=== PATIENT | male | born 1985 | race Caucasian/White ===

== ENCOUNTER 2017-10-06 13:51 | Inpatient (IN) ==
[2017-10-06 14:21] LABS: Basophils % 0.3 %; Eosinophils % 0.6 %; Hematocrit 38.7 % (37.5-50.1); Hemoglobin 12.5 g/dL (12.9-16.9); Immature Granulocytes % 0.1 % (0-4); Lymphocytes # 1.8 K/mcL (0.6-4.6); Lymphocytes % 25.8 %; Mean Corpuscular HGB Conc 32.3 g/dL (31.6-35.5); Mean Corpuscular Hemoglobin 27.1 pg (28.0-33.3); Mean Corpuscular Volume 83.9 fL (83.0-100.0); Mean Platelet Volume 11.4 fL (9.4-12.4); Monocytes # 0.9 K/mcL (0.0-1.3); Monocytes % 13.1 %; Neutrophils # 4.1 K/mcL (1.6-8.9); Platelet Count 513 K/mcL (140-400); Red Blood Count 4.61 M/mcL (4.19-5.50); Red Cell Distribution Width 14.3 % (11.5-14.5); Segmented Neutrophils % 60.1 %
--- NOTE | 2017-10-06 14:26 | Emergency Department Note ---
Disposition Clinical Impression: Acute renal failure, Hypokalemia, Hyponatremia, Metabolic alkalosis, Volume depletion Disposition: Admitted As Inpatient Condition: Critical Time of Disposition: 18:09 Recheck wound or abnormal lab - General Chief Complaint: ED Recheck/Abnormal Lab/Rx Stated Complaint: abnormal labs: Creat Time Seen by Provider: 10/06/17 14:15 Source: patient, family Limitations: no limitations Nursing Notes Reviewed: Yes Vital Signs Reviewed: Yes - History of Present Illness HPI Narrative: Mr. Benitez, 31-year-old male, presents from [facility] for evaluation of abnormal lab value-creatinine on routine labs today was 8.7 compared to 3 days prior of 1.7. PMH: Hydrocephalus, mild intellectual disabilities, dysphasia, major depressive disorder, intermittent explosive disorder ROS: Positive: Patient is keating positive. - Related Data Home Medications Medication Instructions Recorded Confirmed Atenolol [Tenormin] 25 mg PO DAILY 10/06/17 10/06/17 Bismuth Subsalicylate 524 mg PO Q8H PRN 10/06/17 10/06/17 [PEPTO-BISMOL (262mg/15mL) Susp] Brivaracetam [Briviact] 100 mg PO BID 10/06/17 10/06/17 Dextrose 10 % in Water [Dextrose 2,400 ml IV AD 10/06/17 10/06/17 10%-Water IV Solution] Docusate [Colace] 100 mg PO BID PRN 10/06/17 10/06/17 Esomeprazole Magnesium [Nexium] 40 mg PO DAILY PRN 10/06/17 10/06/17 Gemfibrozil [Lopid] 600 mg PO BIDWM 10/06/17 10/06/17 GuaiFENesin/Dextromethorphan 10 ml PO Q6H PRN 10/06/17 10/06/17 [Tussin Dm Syrup] Loperamide HCl [Anti-Diarrheal] 2 mg PO PER PKG DI PRN MDD 8 mg 10/06/17 Mirtazapine [Remeron] 45 mg PO 1800,2100 10/06/17 10/06/17 Mvi, Adult No.4, Vit K, 1 of 2 5 ml IV AD 10/06/17 10/06/17 [Infuvite Adult Vial 1] Mvi, Adult No.4, Vit K, 2 of 2 5 ml IV AD 10/06/17 10/06/17 [Infuvite Adult Vial 2] Nystatin Cream [Mycostatin Cream] 1 appl TP BID 10/06/17 10/06/17 Oxycodone HCl 5 mg PO Q6H PRN 10/06/17 10/06/17 Quetiapine Fumarate [SEROquel] 100 mg PO QAM 10/06/17 10/06/17 Quetiapine Fumarate [Seroquel] 50 mg PO 1200,2100 10/06/17 10/06/17 Ranitidine HCl [Zantac] 150 mg PO BID 10/06/17 10/06/17 Tpn 2,400 ml IV DAILY 10/06/17 10/06/17 lamoTRIgine [Lamictal] 100 mg PO BID 10/06/17 10/06/17 Allergies Allergy/AdvReac Type Severity Reaction Status Date / Time No Known Allergies Allergy Verified 10/06/17 13:55 All systems ED: reviewed and negative except as stated. Review of Systems: As Per HPI Constitutional: Denies: fever, chills Past Medical History - Past Medical History Attestation: Yes The following information was validated with the patient. Medical history: Reports: other Surgical history: Reports: colostomy - Social History Smoking Status: Unknown if ever smoked Smokeless Tobacco Status: No Alcohol use: Reports: none Drug use: Reports: none Physical Exam Vital Signs Reviewed General: Patient is alert, oriented, and in no acute distress. HEENT: No facial asymmetry. Head is normocephalic and atraumatic. PERRL, EOMI. oral mucosa tacky. Cardiovascular: Heart regular rate and rhythm without clicks, rubs, gallops, or murmurs. No JVD. PMI nondisplaced. Respiratory: Symmetric chest rise with good respiratory effort. Bilateral breath sounds are clear without wheezing, crackles, or rhonchi. Abdomen: Bowel sounds present normoactive x-4 quadrants. Abdomen is soft, nondistended, mildly diffusely tender. Well-healed postsurgical midline scar with left upper quadrant ileostomy and right upper quadrant colostomy. Musculoskeletal: Spontaneously moving all extremities. Neuro: Alert and oriented. Sensation light touch intact. Psych: Patient's affect is appropriate for situation. - General Limitations: no limitations General appearance: alert, in no apparent distress Course Course Narrative: Patient has a large midline abdominal incision as well as a left upper quadrant colostomy and a right upper quadrant ostomy to an empty bag. Patient does not know why these surgeries were performed and there is no mention of it in his records from [facility]. Records from [facility] show patient has IV TPN daily however he does not have a central line, midline, or port. He states he takes his medications by mouth. There is no diagnosis given the [facility] documentation which would assess to take TPN. Lab work from [facility]: 10/06/2017 Chemistry: Chloride 66, bicarbonate 40, BUN 85, creatinine 8.7, EGFR 7, calcium 10.0, phosphorus 12.7, magnesium 3.8 10/03/2017 Chemistry: Chloride 75, bicarbonate 40, BUN 44, creatinine 1.7, EGFR 47, calcium 9.7, phosphorus 5.9, magnesium 3.1 09/29/2017 Chemistry: Chloride 73, bicarbonate 42, BUN 35, creatinine 1.1, EGFR 78, calcium 12.1, phosphorus 5.4, magnesium 2.9 14:30 I discussed the patient with [place] Naya Staley: - Patient tore out his PICC line Tuesday and refused to allow another one to be placed. Prior to that, he had received TPN. Since then, he has been on a liquid diet with no solids secondary to dysphagia. - Patient transferred from [facility] to [place]. At [facility], he had: 08/25/17: ex lap appendectomy and ileostomy with mucous creation. 08/16/17: Extensive lysis of adhesions, right partial nephrectomy, small bowel resection with primary anastomosis. Indication: Right renal mass, frozen abdomen, and small bowel injury. Patient's creatinine is 9.32. Fortunately, his potassium is 3.0. Clinically I suspect that this is secondary to GI losses in the context of his lack of TPN for the last 3 days and his heel fluid vargas in an otherwise minimally or marginally functioning bowel. I patient with on-call nephrology, Dr. Bernstein, who agrees to accept the patient. He recommends copious fluid resuscitation at this point with close monitoring of his renal function and electrolytes. I discussed the patient with the admitting hospitalist, Dr. Farnsworth, who agrees to accept the patient for continued evaluation and monitoring. Vital Signs Temperature 98.3 F 10/06/17 13:52 Pulse Rate 82 10/06/17 13:52 Respiratory Rate 18 10/06/17 13:52 Blood Pressure 94/60 10/06/17 13:52 O2 Sat by Pulse Oximetry 95 10/06/17 13:52 Temperature 98.1 F 10/06/17 18:22 Pulse Rate 78 10/06/17 18:22 Respiratory Rate 20 10/06/17 18:22 Blood Pressure 116/77 10/06/17 18:22 O2 Sat by Pulse Oximetry 95 10/06/17 18:22 Oxygen Delivery Oxygen Delivery Room Air Recheck wound or abnormal lab - Lab Data Result diagrams: 10/06/17 14:12 10/06/17 14:12 Lab Results 10/06/17 10/06/17 10/06/17 Range/Units 14:12 14:12 16:22 WBC 6.8 (4.3-11.1) K/mcL RBC 4.61 (4.19-5.50) M/mcL Hgb 12.5 L (12.9-16.9) g/dL Hct 38.7 (37.5-50.1) % MCV 83.9 (83.0-100.0) fL MCH 27.1 L (28.0-33.3) pg MCHC 32.3 (31.6-35.5) g/dL RDW 14.3 (11.5-14.5) % Plt Count 513 H (140-400) K/mcL MPV 11.4 (9.4-12.4) fL Immature Gran % 0.1 (0-4) % Seg Neutrophils % 60.1 % Lymphocytes % 25.8 % Monocytes % 13.1 % Eosinophils % 0.6 % Basophils % 0.3 % Neutrophils # 4.1 (1.6-8.9) K/mcL Lymphocytes # 1.8 (0.6-4.6) K/mcL Monocytes # 0.9 (0.0-1.3) K/mcL Eosinophils # 0.0 (0.0-0.6) K/mcL Basophils # 0.0 (0.0-0.2) K/mcL VBG pH 7.69 H* (7.32-7.42) pH Units VBG pCO2 34 L (41-51) mmHg VBG pO2 176 H (25-50) mmHg VBG HCO3 41 H (21-27) mEq/L Sodium 133 L (136-145) mEq/L Potassium 3.0 L (3.5-5.1) mEq/L Chloride 66 L (98-107) mEq/L Carbon Dioxide 38 H (23-29) mEq/L BUN 88 H (6-20) mg/dL Creatinine 9.32 H (0.70-1.30) mg/dL Est GFR ( Amer) 8 L (> 60) Est GFR (Non-Af Amer) 7 L (> 60) BUN/Creatinine Ratio 9 (6-26) Glucose 150 H (70-105) mg/dL Calculated Osmolality 306 H (280-300) Calcium 10.0 (8.6-10.3) mg/dL Phosphorus 12.5 H (2.7-4.5) mg/dL Magnesium 3.7 H (1.6-2.6) mg/dL Total Bilirubin 0.6 (0.3-1.0) mg/dL AST 15 (13-39) Units/L ALT 21 (7-52) Units/L Alkaline Phosphatase 57 (34-104) Units/L Serum Total Protein 10.2 H (6.4-8.9) g/dL Albumin 4.7 (3.5-5.7) g/dL Globulin 5.5 H (2.4-3.5) g/dL Albumin/Globulin Ratio 0.9 L (1.1-2.2) Person Notif of Carleen HE Attestation Statement - Attestation Attestation: I examined this patient and my medical decision-making was reviewed with the Resident Physician. I agree with the documented findings, disposition and treatment plan as described except to the extent set forth below. 31-year-old male presents to the ED because of abnormal labs. He has history of spina bifida and hydrocephalus as well as multiple abdominal surgeries. He recently underwent revision of colostomy and ended up with an ileostomy as well. He has had remote resection of part of one of his kidneys due to a mass. He was discharged from [facility] after ileostomy and was started on TPN. However, he pulled out his central catheter and they switched him over to oral intake but has had large amount of volume output through his ileostomy since that time. No reports of fever. He has had no urine output for greater than 16 hours. No complaint of abdominal pain does have bilateral flank pain. No change in medications. Patient is in no apparent distress but appears little bit uncomfortable. He complains of generalized weakness and generalized myalgias. Oropharynx is clear. Membranes are dry. Neck supple. Chest is clear to auscultation bilaterally. Cardiac exam regular. Abdomen with colostomy in the right abdomen and ileostomy in the left abdomen with a large amount of fluid in the ileostomy bag. No anterior abdominal tenderness. He does have bilateral flank tenderness. Bedside ultrasound reveals collapsed bladder. CT the abdomen reveals no hydronephrosis, no signs of obstructive uropathy. Patient had a creatinine of greater than 9 with a serum potassium of 3.0, serum bicarbonate of 38 and a chloride of 66. He was started on aggressive volume repletion. Overall presentation is most consistent with GI losses considering his hypochloremic metabolic alkalosis and renal failure. He will require aggressive fluid hydration and admission to the hospital. The high probability of a clinically significant, sudden or life threatening deterioration of the [renal] system(s) required my full and direct attention, intervention and personal management. The aggregate critical care time was [30] minutes. This time is in addition to time spent performing reported procedures but includes the following: [x] Data Review and interpretation [x] Patient assessment and monitoring of vital signs [x] Documentation [x] Medication orders and management
[2017-10-06 14:41] LABS: Albumin 4.7 g/dL (3.5-5.7); Albumin/Globulin Ratio 0.9 (1.1-2.2); Bilirubin,Total 0.6 mg/dL (0.3-1.0); Globulin 5.5 g/dL (2.4-3.5); Total Protein 10.2 g/dL (6.4-8.9)
[2017-10-06] MEDS ORDERED: 0.9 % Sodium Chloride 500 ML IVC ONE ×2 (14:48→15:13)
[2017-10-06 15:14] LABS: Magnesium 3.7 mg/dL (1.6-2.6); Phosphorous 12.5 mg/dL (2.7-4.5)
[2017-10-06] MEDS ORDERED: 0.9 % Sodium Chloride 1,000 ML IVC SCH ×2 (15:15→17:30)
--- NOTE | 2017-10-06 15:39 | Nephrology Consult Note ---
Date of Encounter: 10/06/17 Time of Encounter: 15:30 Assessment and Plan (1) TAYLOR (acute kidney injury) Current Visit: Yes Status: Acute Recent right partial nephrectomy for benign renal mass Abnormal routine lab values at Rehab Facility: Creatinine 8.7 today compared to prior level of 1.7 on 10/03/17 Cr 9.32 Ultrasound of the kidneys and urinary bladder was unremarkable CT abd/plv revealed a post-operative cluster of several small punctate and linear hyperdensities along the lateral cortical margin midpole right kidney. Urine osmolality, urine sodium, and urine creatinine pending Continue NS at 125cc/hr Closely monitor renal function (2) Metabolic acidosis with respiratory alkalosis Current Visit: Yes Status: Acute Suspect that metabolic derangements are secondary to GI losses in the context of lack of TPN for the last 3 days VBG: pH 7.69, pCO2 34, pO2 176, HCO3 41 Serum Chloride 66 Continue IV normal saline at 125cc/hr Continue to monitor (3) Hypokalemia Current Visit: Yes Status: Acute Supplement Potassium IV Continue to monitor (4) Hyponatremia Current Visit: Yes Status: Acute Continue IVF NS at 125cc/h Continue to monitor (5) Hypermagnesemia Current Visit: Yes Status: Acute Continue to monitor (6) Hyperphosphatemia Current Visit: Yes Status: Acute Continue to monitor Consider phosphate binder if no improvement with IVF (7) Dysphagia Current Visit: Yes Status: Acute Rehab facility staff noted patient became very agitated 3 days ago and pulled out his PICC line. He has not been able to receive TPA for the past 3 days. Qualifiers: Dysphagia type: unspecified Qualified Code(s): R13.10 - Dysphagia, unspecified (8) Ileostomy present Current Visit: Yes Status: Chronic Patient has been in rehab for the past month s/p small bowel resection and ileostomy due to ruptured small bowel obstruction caused by post-operative adhesions. CT abd/plv reveals bilateral lower abdomen ostomies. No evidence for bowel obstruction. (9) Spina bifida Current Visit: No Status: Chronic Patient is wheelchair bound CT abd/plv reveals non fusion of posterior elements of lumbar vertebrae with enlargement of the thecal sac Qualifiers: Spinal region: lumbar Presence of hydrocephalus: with hydrocephalus Qualified Code(s): Q05.2 - Lumbar spina bifida with hydrocephalus (10) Hydrocephalus Current Visit: No Status: Chronic Patient recently had his intracranial shunts replaced due to concern for systemic infection. History of Present Illness - Reason for Consult Consult date: 10/06/17 Acute Kidney Injury Requesting physician: Cali De Luna - Chief Complaint Abnormal labs - History of Present Illness Mr. Benitez is a 31-year-old male with a PMH of spina bifida, hydrocephalus, dysphasia, and recent right partial nephrectomy for benign renal mass that presented from [facility] rehab facility due to abnormal routine lab values (creatinine was 8.7 today compared to prior level of 1.7 on 10/03/17) . Patient's father is at bedside and reports patient has been in rehab for the past month s/p small bowel resection and ileostomy due to ruptured small bowel obstruction caused by post-operative adhesions. Patient also had his intra- cranial shunts replaced due to concern for systemic infection. Patient also reports decreased urinary output, intermittent self catheterizations, and difficulty urinating. Rehab facility staff noted patient became very agitated 3 days ago and pulled out his PICC line. He has not been able to receive TPA for the past 3 days. Patient reports copious output form his ileostomy and mold lower abdominal pain. Labs on presentation to the ED revealed K 3.0, BUN 88, Cr 9.32, Mag 3.7, and Phos 12.5, ultrasound of the kidneys and urinary bladder was unremarkable, and CT abd/plv revealed a post-operative cluster of several small punctate and linear hyperdensities along the lateral cortical margin midpole right kidney. Past Med Surg Social Fam HX - Past Medical History Medical history: other (spina bifida, hydrocephalus) - Past Surgical History Surgical History: other (partial right nephrectomy, ileostomy) - Social History Smoking Status: Unknown if ever smoked Smokeless Tobacco Status: No Alcohol use: none Drug use: none Medications and Allergies Atenolol [Tenormin] 25 mg PO DAILY 10/06/17 [History] Bismuth Subsalicylate [PEPTO-BISMOL (262mg/15mL) Susp] 524 mg PO Q8H PRN [History] Brivaracetam [Briviact] 100 mg PO BID 10/06/17 [History] Dextrose 10 % in Water [Dextrose 10%-Water IV Solution] 2,400 ml IV AD 10/06/17 [History] Docusate [Colace] 100 mg PO BID PRN 10/06/17 [History] Esomeprazole Magnesium [Nexium] 40 mg PO DAILY PRN 10/06/17 [History] Gemfibrozil [Lopid] 600 mg PO BIDWM 10/06/17 [History] GuaiFENesin/Dextromethorphan [Tussin Dm Syrup] 10 ml PO Q6H PRN 10/06/17 [ History] Loperamide HCl [Anti-Diarrheal] 2 mg PO PER PKG DI PRN MDD 8 mg 10/06/17 [ History] Mirtazapine [Remeron] 45 mg PO 1800,2100 10/06/17 [History] Mvi, Adult No.4, Vit K, 1 of 2 [Infuvite Adult Vial 1] 5 ml IV AD 10/06/17 [ History] Mvi, Adult No.4, Vit K, 2 of 2 [Infuvite Adult Vial 2] 5 ml IV AD 10/06/17 [ History] Nystatin Cream [Mycostatin Cream] 1 appl TP BID 10/06/17 [History] Oxycodone HCl 5 mg PO Q6H PRN 10/06/17 [History] Quetiapine Fumarate [SEROquel] 100 mg PO QAM 10/06/17 [History] Quetiapine Fumarate [Seroquel] 50 mg PO 1200,209910/06/17 [History] Ranitidine HCl [Zantac] 150 mg PO BID 10/06/17 [History] Tpn 2,400 ml IV DAILY 10/06/17 [History] lamoTRIgine [Lamictal] 100 mg PO BID 10/06/17 [History] 3 Allergy/AdvReac Type Severity Reaction Status Date / Time No Known Allergies Allergy Verified 10/06/17 13:55 Review of Systems Constitutional: no chills, no fever(s), no weight gain Nose, mouth and throat: no nasal congestion, no sore throat Cardiovascular: no chest pain, no edema, no palpitations Respiratory: no cough, no chest congestion Gastrointestinal: abdominal pain, diarrhea (increased ostomy output), nausea, vomiting Genitourinary Male: difficulty urinating, dysuria, no urinary frequency, no urinary urgency Musculoskeletal: no numbness, no tingling Neurological: behavioral changes, no dizziness, no numbness, no tingling Psychiatric: irritability, no anxiety, no depression Exam - Vital Signs Vital signs: Initial Vital Signs Temp Pulse Resp BP Pulse Ox 98.3 F 82 18 94/60 95 10/06/17 13:52 10/06/17 13:52 10/06/17 13:52 10/06/17 13:52 10/06/17 13:52 Vital Signs - Last 8 Hours Temp Pulse Resp BP Pulse Ox 10/06/17 15:01 78 91/69 93 10/06/17 13:52 98.3 F 82 18 94/60 95 Intake and Output 10/05/17 10/06/17 10/06/17 23:59 07:59 15:59 Other: Weight 65.771 kg Patient Weight 10/06/17 23:59 Weight 65.771 kg - General Appearance General appearance: well-developed, well-nourished, appears started age, chronically ill EENT: ATNC, PERRL Neck: no JVD, supple Respiratory: clear Additional Comments: equal breath sounds bilaterally Cardiology: no murmurs, no edema, regular rate, regular rhythm Gastrointestinal: normoactive bowel sounds, tenderness, no guarding Additional Comments: Well-healed postsurgical midline scar with bilateral lower abdomen ostomies Integumentary: warm and dry Neurologic: no focal deficit, alert and oriented x3 Musculoskeletal: deformities (bilateral lower extremity contractures), decreased ROM Psychiatric: mood/affect appropriate, cooperative Results - Lab Results 10/06/17 14:12 10/06/17 14:12 Most recent lab results Calcium 10.0 mg/dL (8.6-10.3) 10/06/17 14:12 Phosphorus 12.5 mg/dL (2.7-4.5) H 10/06/17 14:12 Magnesium 3.7 mg/dL (1.6-2.6) H 10/06/17 14:12 - Image Kidney/bladder ultrasound: report reviewed, image reviewed Consult Discharge Plan - Plan Referrals: NONE,PCP [Primary Care Provider] - Omayra Block [Family Provider] -
[2017-10-06 16:28] LABS: VBG HCO3 41 mEq/L (21-27); VBG PCO2 34 mmHg (41-51); VBG PH 7.69 pH Units (7.32-7.42); VBG PO2 176 mmHg (25-50)
[2017-10-06] MEDS ORDERED: 0.9 % Sodium Chloride 1,000 ML IVC ONE (16:43)
[2017-10-06] MEDS ORDERED: Potassium Chloride 40 MEQ, Lidocaine 1% 2 ML in D5% in Water 500 ML IVPB ONE (17:30)
[2017-10-06] MEDS ORDERED: Ondansetron 4 MG/2 ML VIAL IVP PRN (22:02)
[2017-10-06] MEDS ORDERED: Naloxone 0.4 MG/ML INJ IVP PRN (22:02)
--- NOTE | 2017-10-06 22:59 | Internal Med History&Physical ---
<Flakito Moscoso - Last Filed: 10/06/17 23:30> Date of Encounter: 10/06/17 Time of Encounter: 20:00 Assessment and Plan (1) TAYLOR (acute kidney injury) Current visit: Yes Status: Acute Creatinine level VIII.7 today at [facility] compared to prior level of 1.7 on . Creatinine 9.3 to in EV lab draws. Ultrasound of kidneys and urinary bladder unremarkable. Recent right partial nephrectomy for benign renal mass. CT the abdomen and pelvis today revealed postoperative cluster of several small punctate and linear hyperdensities along the lateral cortical margin midpole right kidney. 0.9 NS @ 150 mL/HR. Monitor pt., renal function, and f/u labs. Nephrology consult ordered and I appreciate consult. Pt. discussed w/Dr. Holly who is in agreement w/plan of care. Pt. is at high risk for further morbidity d/t current acute kidney injury, electrolyte imbalance, metabolic alkalosis, and volume depletion. Inpatient. (2) Metabolic acidosis with respiratory alkalosis Current visit: Yes Status: Acute Acute metabolic acidosis with respiratory alkalosis secondary to suspected GI losses due to lack of TPN for 3 days. VBG: PH 7.69, PCO2 34, PO2 176, HCO3 41, serum chloride 66. Continue 0.9 normal saline at 150 mL/HR. Monitor pt. and f/ u labs. (3) Chest pain Current visit: Yes Status: Acute Pt. reports acute chest pain in central chest that comes and goes. Describes pain as sharp and intermittent w/o radiation. Initial troponin <0.03. Will trend x2. Continuous cardiac telemetry. Repeat EKG. Echocardiogram ordered. Monitor pt. closely. Qualifiers: Chest pain type: unspecified Qualified Code(s): R07.9 - Chest pain, unspecified (4) Dysphagia Current visit: Yes Status: Acute [facility] staff reports patient became agitated 3 days ago and pulled out PICC line cheers receiving TPN maintenance for. Patient has not had TPN for the past 3 days and has been on liquid diet only. Continue clear liquid diet. Nutrition consult ordered. Qualifiers: Dysphagia type: unspecified Qualified Code(s): R13.10 - Dysphagia, unspecified (5) Hypermagnesemia Current visit: Yes Status: Acute Acute hypermagnesemia with magnesium level III.7 on admission. Monitor patient and f/u labs. (6) Hyperphosphatemia Current visit: Yes Status: Acute Acute hyperphosphatemia with phosphorus level XII.5 on admission. Malnutrition follow-up labs. Consider phosphate binder if no improvement with IV fluid resuscitation. (7) Hypokalemia Current visit: Yes Status: Acute Acute hypokalemia with potassium of 3.0 on admission today. Patient given supplemental potassium 40 mEq by mouth followed by 40 mEq IVPB. Will check potassium level at midnight. Monitor pt. and f/u labs. (8) Hyponatremia Current visit: Yes Status: Acute Acute hyponatremia with sodium level of 133 on admission. Will continue IV fluid 0.9 normal saline at 150 mL/HR. Monitor pt. and f/u labs. (9) Ileostomy present Current visit: Yes Status: Chronic Hx of chronic ileostomy that was done at [facility] on 08/25/17 due to ruptured small bowel obstruction caused by postoperative adhesions.. Patient has been in rehabilitation for the past month at [facility]. CT of the abdomen and pelvis today reveals bilateral lower abdominal ostomies with no evidence for bowel obstruction. (10) Hydrocephalus Current visit: Yes Status: Chronic Hx of hydrocephalus. According to medical records,, patient recently had his intracranial shunts replaced due to concern for systemic infection. (11) Spina bifida Current visit: Yes Status: Chronic Hx of chronic spina bifida with patient being wheelchair dependent. CT of the abdomen and pelvis today reveals non-fusion of posterior elements lumbar vertebrae with enlargement of the thecal sac. Qualifiers: Spinal region: lumbar Presence of hydrocephalus: with hydrocephalus Qualified Code(s): Q05.2 - Lumbar spina bifida with hydrocephalus (12) DVT prophylaxis Current visit: Yes Status: Acute Heparin 5,000 units SQ Q12 for DVT prophylaxis. Monitor pt. for signs of bleeding. Internal Medicine - H&P: HPI Chief complaint: Abnormal labs Admitted From: Long-term Nursing Facility Plans for Post Hospital Care: Home History of present illness: Mr. Benitez is a 31 year old male with medical hx of ileostomy, spina bifida, and hydrocephalus is from [facility] with chief complaint of abnormal lab values. Creatinine today was 8.7 compared to 3 days ago of 1.7. Patient states he had previous PICC line which she pulled out at [facility] on Tuesday because he was tired of having it. Patient has mild intellectual disabilities as well as dysphagia, major depressive disorder, and intermittent explosive disorder. Patient patient was receiving TPN daily peripatetic and states he takes medications by mouth. Patient has been on liquid diets and swelling on his PICC line. Medical records show 08/16/17, patient had extensive lysis of adhesions, right partial nephrectomy, small bowel resection with primary anastomosis. Indication was right renal mass, frozen abdomen, small bowel injury. On 08/25/17 patient had lap appendectomy and ileostomy with mucous creation. Pt. reports chest pain and SOB but denies recent illness, fever, chills, nausea, vomiting, unusual bleeding, dizziness, lightheadedness, pre- syncope, or syncope. Past Med Surg Social Fam HX - Past Medical History Source: patient, old records reviewed Medical history: other Psychiatric history: depression - Past Surgical History Surgical History: colostomy - Social History Smoking Status: Unknown if ever smoked Smokeless Tobacco Status: No Alcohol use: none Drug use: none Current living situation: [facility] Activity Level: Wheelchair bound Recent Out of Country Travel Within the Last 8 Weeks: No Exposure or Possible Exposure to Illness During Travel: No Internal Medicine - H&P: Meds Atenolol [Tenormin] 25 mg PO DAILY 10/06/17 [History] Bismuth Subsalicylate [PEPTO-BISMOL (262mg/15mL) Susp] 524 mg PO Q8H PRN [History] Brivaracetam [Briviact] 100 mg PO BID 10/06/17 [History] Dextrose 10 % in Water [Dextrose 10%-Water IV Solution] 2,400 ml IV AD 10/06/17 [History] Docusate [Colace] 100 mg PO BID PRN 10/06/17 [History] Esomeprazole Magnesium [Nexium] 40 mg PO DAILY PRN 10/06/17 [History] Gemfibrozil [Lopid] 600 mg PO BIDWM 10/06/17 [History] GuaiFENesin/Dextromethorphan [Tussin Dm Syrup] 10 ml PO Q6H PRN 10/06/17 [ History] Loperamide HCl [Anti-Diarrheal] 2 mg PO PER PKG DI PRN MDD 8 mg 10/06/17 [ History] Mirtazapine [Remeron] 45 mg PO 1800,209910/06/17 [History] Mvi, Adult No.4, Vit K, 1 of 2 [Infuvite Adult Vial 1] 5 ml IV AD 10/06/17 [ History] Mvi, Adult No.4, Vit K, 2 of 2 [Infuvite Adult Vial 2] 5 ml IV AD 10/06/17 [ History] Nystatin Cream [Mycostatin Cream] 1 appl TP BID 10/06/17 [History] Oxycodone HCl 5 mg PO Q6H PRN 10/06/17 [History] Quetiapine Fumarate [SEROquel] 100 mg PO QAM 10/06/17 [History] Quetiapine Fumarate [Seroquel] 50 mg PO 1200,209910/06/17 [History] Ranitidine HCl [Zantac] 150 mg PO BID 10/06/17 [History] Tpn 2,400 ml IV DAILY 10/06/17 [History] lamoTRIgine [Lamictal] 100 mg PO BID 10/06/17 [History] 3 Allergy/AdvReac Type Severity Reaction Status Date / Time No Known Allergies Allergy Verified 10/06/17 13:55 All Systems PM: A 10-system review of systems was performed and is negative for pertinent findings except as documented above in the HPI. - Constitutional Constitutional: as per HPI, weakness, no chills, no fever(s), no night sweats - EENT Eyes: no change in vision, no discharge, no pain, no photophobia Ears: no ear discharge, no ear pain, no tinnitus Nose, mouth and throat: no dysphagia, no nasal discharge, no neck pain, no sore throat - Breasts Breasts: as per HPI - Cardiovascular Cardiovascular ROS IM: as per HPI, chest pain, dyspnea, no diaphoresis, no lightheadedness, no palpitations, no syncope - Respiratory Respiratory: as per HPI, dyspnea, no cough, no wheezing, no excessive phlegm production - Gastrointestinal Gastrointestinal: no abdominal pain, no diarrhea, no hematemesis, no hematochezia, no melena, no nausea, no vomiting - Genitourinary Genitourinary ROS male: as per HPI - Musculoskeletal Musculoskeletal ROS IM: no numbness, no tingling - Integumentary Integumentary IM: no rash, no unusual bruising - Neurological Neurological ROS: no confusion, no convulsions, no focal weakness, no numbness, no tingling, no tremor(s) - Psychiatric Psychiatric: as per HPI, depression - Endocrine Endocrine IM: as per HPI - Hematologic/Lymphatic Hematologic/Lymphatic: no easy bruising - Allergic/Immunologic Allergic/Immunologic: as per HPI - Constitutional Vitals: Temp Pulse Resp BP Pulse Ox 98.1 F 78 20 116/77 95 10/06/17 18:22 10/06/17 18:22 10/06/17 18:22 10/06/17 18:22 10/06/17 20:06 General appearance: Present: cooperative, A&O X 2, pleasant, no acute distress, answers questions appropriately - Head Head exam: Present: atraumatic, normocephalic - Eye Eye exam: Present: PERRL, conjuntiva pink, sclera anicteric Pupils: Present: PERRL - ENT ENT exam: Present: normal exam - Neck Neck exam general surgery: Present: normal inspection - Respiratory Respiratory exam: Present: CTAB. Absent: accessory muscle use, rales, rhonchi, wheezes - Cardiovascular Cardiovascular exam: Present: RRR, +S1, +S2. Absent: diastolic murmur, gallop, rubs, systolic murmur - GI/Abdominal GI/Abdominal exam: Present: normal bowel sounds, soft, no peritoneal signs. Absent: distended, tenderness - Rectal Rectal exam: Present: deferred - Additional comments: exam deferred. - Extremities Exam Extremities exam: Present: warm, radial pulses palpable and symmetrical. Absent : calf tenderness, cyanotic, pedal edema - Back Exam Back exam: Present: normal inspection - Neurological Exam Neurological exam: Present: alert, reflexes normal, strengths equal and symetr throughout - Psychiatric Psychiatric exam: Present: normal affect, normal mood - Skin Skin exam: Present: dry, intact Internal Med - H&P Results - Labs CBC & Chem 7: 10/06/17 14:12 10/06/17 14:12 Labs: Cardiac Enzymes 10/06/17 Range/Units 21:33 Troponin I < 0.03 (< 0.04) ng/mL - Diagnostic Studies CT scan - abdomen Additional comments: Impressions Abdomen/Pelvis CT 10/06/17 14:47 IMPRESSION: 1. No evidence for hydronephrosis or hydroureter to suggest urinary tract obstruction. Urinary bladder is also underdistended with presumed consequent bladder wall thickening. 2. There appears to be a small amount of air tracking along the paramediastinal pleural space in the left infrahilar region and along the major fissure. This is not completely imaged. Recommend dedicated CT chest in the absence of any priors for comparison. 3. There is focal right renal lateral midpole perinephric fluid density with surrounding infiltration about 3.1 x 2.3 cm which could represent hematoma. Some punctate and linear hyperdensities along the fluid/renal interface with some extension into the fluid may be related to surgical material or possibly dystrophic calcifications. Please correlate for history of renal intervention such as biopsy or mass excision. Such history was not provided. 4. Bilateral lower abdomen ostomies. No evidence for bowel obstruction. 5. Chronic right hip posterosuperior dislocation. Non fusion of posterior elements of lumbar vertebrae with enlargement of the thecal sac suggest spina bifida. D/ / Shahid Solomon MD / Shahid Solomon MD Interpreting Provider: Shahid Solomon MD Other Images Additional comments: Impressions Retroperitoneum Ultrasound 10/06/17 15:19 IMPRESSION: Unremarkable ultrasound of the kidneys and urinary bladder.The admixed fluid/calcification seen at the mid pole right kidney on CT imaging is not appreciated on ultrasound, this area partially obscured by overlying bowel gas. D/ / Edil Cowart / Edil Cowart Interpreting Provider: Edil Cowart <Rafi Holly - Last Filed: 10/07/17 02:45> Date of Encounter: 10/06/17 Time of Encounter: 23:30 - Constitutional Vitals: Temp Pulse Resp BP Pulse Ox 99.1 F 93 16 106/68 96 10/06/17 23:15 10/06/17 23:15 10/06/17 23:15 10/06/17 23:15 10/06/17 23:15 General appearance: Present: cooperative, A&O X 1, pleasant, no acute distress - Head Additional comments: healing scar noted on the right posterior occipital area from recent PRINCIPAL TECHNOLOGIST shunt placement - Eye Eye exam: Present: PERRL. Absent: scleral icterus - ENT ENT exam: Present: mucous membranes dry, normal exam - Neck Neck exam general surgery: Present: supple - Respiratory Respiratory exam: Present: CTAB - Cardiovascular Cardiovascular exam: Present: RRR, +S1, +S2 - GI/Abdominal GI/Abdominal exam: Present: soft. Absent: tenderness - Extremities Exam Extremities exam: Present: warm. Absent: calf tenderness - Back Exam Back exam: Absent: CVA tenderness (L), CVA tenderness (R) Internal Med - H&P Results - Labs CBC & Chem 7: 10/06/17 14:12 10/06/17 21:33 Labs: BMP 10/06/17 21:33 Potassium 3.0 L Cardiac Enzymes 10/06/17 Range/Units 21:33 Troponin I < 0.03 (< 0.04) ng/mL - Attending Attestation I discussed the patient PAMUNKEY, PMH, ROS, lab data, and exam findings with Jose Moscoso CNP. I then saw and examined patient independently as well. Patient is a poor historian and unable to provide much history to me. He admits to pulling out his PICC line. He denies any concerns presently. I noted he has a PRINCIPAL TECHNOLOGIST shunt with a well healing surgical scar -- it appears to be a recent surgery. He can not tell me where he had his subspecialty care. I suspect his acute renal failure is due to volume loss (GI loss) and inability to keep up by oral route. He will need IVF, nutrition consult for resumption of TPN, another PICC placement, and ongoing nephrology support. When stabilized , he may be better served by transferring back to the hospital where he had his subspecialty care (including neurosurgery). I presume this is [facility], but I can not confirm this. Other than my comments above and noted exam findings, I agree with Jose's assessment and plan.
[2017-10-07] MEDS: 0.9 % Sodium Chloride 1,000 ML IVC SCH ×3 (04:12→22:31)
[2017-10-07 05:09] LABS: Albumin 3.5 g/dL (3.5-5.7); Albumin/Globulin Ratio 0.9 (1.1-2.2); Bilirubin,Total 0.5 mg/dL (0.3-1.0); Calcium 8.2 mg/dL (8.6-10.3); Globulin 3.9 g/dL (2.4-3.5); Magnesium 2.9 mg/dL (1.6-2.6); Phosphorous 7.1 mg/dL (2.7-4.5); Potassium 2.9 mEq/L (3.5-5.1); Total Protein 7.4 g/dL (6.4-8.9)
[2017-10-07] MEDS: *HR* Heparin 5,000 UNIT/ML VIAL SQ SCH ×3 (06:20→20:46)
[2017-10-07] MEDS ORDERED: Potassium Chloride 40 MEQ, Lidocaine 1% 2 ML in D5% in Water 500 ML IVPB ONE (06:30)
[2017-10-07 07:39] LABS: Basophils % 0.2 %; Eosinophils % 0.5 %; Immature Granulocytes % 0.2 % (0-4); Immature Platelets 4.3 % (1.1-6.1); Lymphocytes # 1.4 K/mcL (0.6-4.6); Lymphocytes % 23.5 %; Mean Corpuscular HGB Conc 32.3 g/dL (31.6-35.5); Mean Corpuscular Hemoglobin 28.2 pg (28.0-33.3); Mean Corpuscular Volume 87.3 fL (83.0-100.0); Mean Platelet Volume 11.2 fL (9.4-12.4); Monocytes # 0.5 K/mcL (0.0-1.3); Neutrophils # 4.1 K/mcL (1.6-8.9); Platelet Count 340 K/mcL (140-400); Red Blood Count 3.55 M/mcL (4.19-5.50); Red Cell Distribution Width 14.5 % (11.5-14.5); Segmented Neutrophils % 67.6 %
[2017-10-07 07:45] LABS: INR 1.2; Prothrombin Time 12.7 Seconds (9.4-12.1)
[2017-10-07 07:48] LABS: Activated Partial Thrombo Time 28.6 Seconds (26.0-36.0)
--- NOTE | 2017-10-07 08:25 | Nephrology Progress Note ---
Date of Encounter: 10/07/17 Time of Encounter: 08:24 - Assessment and Plan (1) TAYLOR (acute kidney injury) Current Visit: Yes Status: Acute Cr 9.32 --> 6.96 Recent right partial nephrectomy for benign renal mass Abnormal routine lab values at Rehab Facility: Prior creatinine level of 1.7 on 10/03/17 Ultrasound of the kidneys and urinary bladder was unremarkable CT abd/plv revealed a post-operative cluster of several small punctate and linear hyperdensities along the lateral cortical margin midpole right kidney. Urine osmolality, urine sodium, and urine creatinine pending TAYLOR/ATN likely secondary to volume depletion from discontinued TPN and increased GI losses. Continue NS at 125cc/hr Maintain positive volume status of 1.5-2 liters daily until renal function recovers. No uremia or immediate need for dialysis. Closely monitor renal function (2) Metabolic acidosis with respiratory alkalosis Current Visit: Yes Status: Acute Suspect that metabolic derangements are secondary to GI losses in the context of lack of TPN for the last 3 days VBG: pH 7.69, pCO2 34, pO2 176, HCO3 41 Serum Chloride 66 --> 87 Continue IV normal saline at 125cc/hr Continue to monitor (3) Hypokalemia Current Visit: Yes Status: Acute K 3.0 --> 2.9 Supplement Potassium IV Repeat K level pending Continue to monitor closely (4) Hyponatremia Current Visit: Yes Status: Acute Continue IVF NS at 125cc/h Urine sodium, urine creatinine, urine osmolality pending Continue to monitor (5) Hypochloremia Current Visit: Yes Status: Acute Serum Chloride 66 --> 87 Continue IV NS and monitor (6) Hypermagnesemia Current Visit: Yes Status: Acute Mag 3.7 --> 2.9 Continue to monitor (7) Hyperphosphatemia Current Visit: Yes Status: Acute Phos 12.5 --> 7.1 Continue to monitor (8) Dysphagia Current Visit: Yes Status: Acute Rehab facility staff noted patient became very agitated 3 days prior to arrival and pulled out his PICC line. He has not been able to receive TPA since that time. Patient is scheduled for CVC placement this AM for volume repletion and TPN administration Dietary consulted Qualifiers: Dysphagia type: unspecified Qualified Code(s): R13.10 - Dysphagia, unspecified (9) Ileostomy present Current Visit: Yes Status: Chronic Patient has been in rehab for the past month s/p small bowel resection and ileostomy due to ruptured small bowel obstruction caused by post-operative adhesions. CT abd/plv reveals bilateral lower abdomen ostomies. No evidence for bowel obstruction. (10) Spina bifida Current Visit: Yes Status: Chronic Patient is wheelchair bound CT abd/plv reveals non fusion of posterior elements of lumbar vertebrae with enlargement of the thecal sac Qualifiers: Spinal region: lumbar Presence of hydrocephalus: with hydrocephalus Qualified Code(s): Q05.2 - Lumbar spina bifida with hydrocephalus (11) Hydrocephalus Current Visit: Yes Status: Chronic Patient recently had his intracranial shunts replaced due to concern for systemic infection. Subjective Principal diagnosis: TAYLOR Interval history: Patient seen and examined. Patient reports no acute complaints this AM. Nursing reports no issues overnight. Patient is scheduled for CVC placement this AM for volume repletion and TPN administration Objective - Vital Signs Vital signs: Vital Signs Temp Pulse Resp BP Pulse Ox 10/07/17 07:36 98.1 F 81 16 103/66 97 10/07/17 03:42 98.8 F 85 16 101/69 95 10/06/17 23:15 99.1 F 93 16 106/68 96 10/06/17 20:06 95 10/06/17 18:22 98.1 F 78 20 116/77 95 10/06/17 17:59 16 107/77 Intake and Output 10/06/17 10/07/17 10/07/17 23:59 07:59 15:59 Output Total 500 / 500 Balance -500 / -500 Output: Urostomy 500 / 500 Other: Weight 67.7 kg 66.6 kg Blood Glucose* 123 108 Patient Weight 10/07/17 23:59 Weight 66.6 kg - General Appearance General appearance: Present: well-developed, well-nourished, chronically ill EENT: Present: PERRL Additional Comments: posterior C-spine MAKEUP SALES CONSULTANT shunt incisions well healed Neck: Present: no JVD, supple Respiratory: Present: clear Additional Comments: equal breath sounds bilaterally Cardiology: Present: no murmurs, no edema, regular rate, regular rhythm Gastrointestinal: Present: normoactive bowel sounds, tenderness, no guarding Additional Comments: Well-healed post-surgical midline scar with bilateral lower abdomen ostomies Integumentary: Present: no rash, warm and dry Neurologic: Present: no focal deficit, alert and oriented x3 Musculoskeletal: Present: deformities (bilateral lower extremity contractures) Psychiatric: Present: mood/affect appropriate, cooperative - Lab 10/07/17 07:08 10/07/17 04:19 Most recent lab results Calcium 8.2 mg/dL (8.6-10.3) L 10/07/17 04:19 Phosphorus 7.1 mg/dL (2.7-4.5) H 10/07/17 04:19 Magnesium 2.9 mg/dL (1.6-2.6) H 10/07/17 04:19 Consult Discharge Plan - Plan Referrals: NONE,PCP [Primary Care Provider] - Omayra Block [Family Provider] -
--- NOTE | 2017-10-07 08:26 | Internal Med Progress Note ---
Date of Encounter: 10/07/17 Time of Encounter: 08:24 - Assessment and plan (1) TAYLOR (acute kidney injury) Current Visit: Yes Status: Acute Assessment and plan: Likely secondary to dehydration. Will continue IV fluids. Nephrology was consulted. We will follow further recommendations. Avoid nephrotoxins. Creatinine and kidney function is improving already. Monitor urine output. (2) Caloric malnutrition Current Visit: Yes Status: Acute Assessment and plan: Patient has had abdominal surgery recently with ileostomy placed. Patient has had a PICC and was receiving TPN. He has pulled his back 3 days ago and is not receiving any TPN. It shows in his labs now with multiple electrolytes abnormalities. We will try to get a port placed. Dietary is constant. (3) Chest pain Current Visit: Yes Status: Acute Assessment and plan: Appointments remain not elevated. Follow-up on echocardiogram. He has no chest pain this morning. Qualifiers: Chest pain type: unspecified Qualified Code(s): R07.9 - Chest pain, unspecified (4) DVT prophylaxis Current Visit: Yes Status: Acute Assessment and plan: heparin subcutaneous (5) Hyponatremia Current Visit: Yes Status: Acute Assessment and plan: Improving with IV fluids. (6) Hydrocephalus Current Visit: Yes Status: Chronic Assessment and plan: Chronic stable. (7) Spina bifida Current Visit: Yes Status: Chronic Assessment and plan: Chronic Qualifiers: Spinal region: lumbar Presence of hydrocephalus: with hydrocephalus Qualified Code(s): Q05.2 - Lumbar spina bifida with hydrocephalus - Subjective Interval history: Patient was seen and examined. He is admitted with multiple electrolytes abnormalities. He is TPN dependent secondary to colon surgery recently for which she ended up with an ileostomy. He apparently pulled his PICC line as he was tired of it. He has been afebrile. - Constitutional Vitals: Temp Pulse Resp BP Pulse Ox 98.1 F 81 16 103/66 97 10/07/17 07:36 10/07/17 07:36 10/07/17 07:36 10/07/17 07:36 10/07/17 07:36 General appearance: Present: cooperative, A&O X 1, pleasant, no acute distress Exam: GEN: NAD CVS: RRR. S1, S2, No m/r/g RESP: CTAB ABD: Soft, NT, ND, +BS. Ileostomy noted. EXT: No edema. 2+ DP. No rashes. Lower extremities are contracted. NEURO: Nonfocal Internal Medicine: Result - Labs CBC & Chem 7: 10/07/17 07:08 10/07/17 04:19 Labs: Short CBC 10/07/17 Range/Units 07:08 WBC 6.1 (4.3-11.1) K/mcL Hgb 10.0 L D (12.9-16.9) g/dL Hct 31.0 L (37.5-50.1) % Plt Count 340 (140-400) K/mcL Neutrophils # 4.1 (1.6-8.9) K/mcL BMP 10/06/17 10/07/17 21:33 04:19 Sodium 136 Potassium 3.0 L 2.9 L Chloride 87 L Carbon Dioxide 30 H BUN 74 H Creatinine 6.96 H Glucose 97 Calcium 8.2 L Cardiac Enzymes 10/06/17 10/07/17 10/07/17 Range/Units 21:33 04:19 07:08 Troponin I < 0.03 < 0.03 < 0.03 (< 0.04) ng/mL Liver Function 10/07/17 Range/Units 04:19 Total Bilirubin 0.5 (0.3-1.0) mg/dL AST 13 (13-39) Units/L ALT 13 (7-52) Units/L Alkaline Phosphatase 43 (34-104) Units/L Albumin 3.5 (3.5-5.7) g/dL - ABG Interpretation ABG results: PT/INR, D-dimer PT 12.7 Seconds (9.4-12.1) H 10/07/17 07:08 Consult Discharge Plan - Plan Referrals: NONE,PCP [Primary Care Provider] - Omayra Block [Family Provider] -
[2017-10-07] MEDS ORDERED: D10% in Water 500 ML IVC PRN (11:42)
[2017-10-07] MEDS ORDERED: Heparin 1,000 UNITS/500 mL 500 ML ONE (14:09)
[2017-10-07] MEDS ORDERED: 0.9 % Sodium Chloride 500 ML ONE (14:20)
[2017-10-07] MEDS ORDERED: *HR* Midazolam HCl 2 MG/2 ML VIAL IVP ONE (14:40)
[2017-10-07] MEDS ORDERED: *HR* FentaNYL (PF) 100 MCG/2 ML VIAL IVP ONE (14:40)
[2017-10-07] MEDS ORDERED: CeFAZolin Premix DUPLEX 2,000 MG/50 ML BAG IVPB ONE ×2 (14:41→15:00)
[2017-10-07] MEDS ORDERED: Clinimix 5%-20% SOLUTION 2,000 ML with MVI, adult with vitamin K 10 ML, Sodium Acetat... IVC SCH (17:00)
[2017-10-07] MEDS ORDERED: 0.9 % Sodium Chloride 1,000 ML ONE (22:27)
[2017-10-08 03:49] LABS: Basophils % 0.2 %; Eosinophils % 0.3 %; Hematocrit 31.8 % (37.5-50.1); Hemoglobin 9.9 g/dL (12.9-16.9); Immature Granulocytes % 0.2 % (0-4); Lymphocytes # 1.4 K/mcL (0.6-4.6); Lymphocytes % 22.4 %; Mean Corpuscular HGB Conc 31.1 g/dL (31.6-35.5); Mean Corpuscular Hemoglobin 27.7 pg (28.0-33.3); Mean Corpuscular Volume 88.8 fL (83.0-100.0); Mean Platelet Volume 10.9 fL (9.4-12.4); Monocytes # 0.6 K/mcL (0.0-1.3); Monocytes % 8.6 %; Neutrophils # 4.4 K/mcL (1.6-8.9); Platelet Count 340 K/mcL (140-400); Red Blood Count 3.58 M/mcL (4.19-5.50); Red Cell Distribution Width 14.2 % (11.5-14.5); Segmented Neutrophils % 68.3 %
[2017-10-08 04:07] LABS: Albumin 3.4 g/dL (3.5-5.7); Albumin/Globulin Ratio 0.9 (1.1-2.2); Bilirubin,Total 0.4 mg/dL (0.3-1.0); Calcium 8.7 mg/dL (8.6-10.3); Magnesium 2.5 mg/dL (1.6-2.6); Phosphorous 2.9 mg/dL (2.7-4.5); Potassium 2.8 mEq/L (3.5-5.1); Total Protein 7.4 g/dL (6.4-8.9)
[2017-10-08] MEDS: *HR* Heparin 5,000 UNIT/ML VIAL SQ SCH ×2 (06:41→18:34)
[2017-10-08] MEDS ORDERED: Potassium Chloride 40 MEQ, Lidocaine 1% 2 ML in D5% in Water 500 ML IVPB ONE (07:59)
--- NOTE | 2017-10-08 09:58 | Nephrology Progress Note ---
Date of Encounter: 10/08/17 Time of Encounter: 09:00 - Assessment and Plan (1) TAYLOR (acute kidney injury) Current Visit: Yes Status: Acute Rapidly improving. Still hypokalemic and I added KCl again today. Mag and Phos have both been elevated actually. Okay for the search advertising strategist to add K+ to the TPN. No need for PUMPER GAGER APPRENTICE, but continue to volume expand. Thank you. 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 He did not affirm N/V/D or uremic symptoms. Objective - Vital Signs Vital signs: Vital Signs Temp Pulse Resp BP Pulse Ox 10/08/17 08:57 92 10/08/17 07:53 98.7 F 102 20 99/64 92 10/08/17 01:29 99.1 F 96 15 112/74 92 10/07/17 20:35 98.2 F 85 18 108/79 96 10/07/17 15:56 99.3 F 93 15 111/71 96 10/07/17 15:18 88 15 113/79 100 10/07/17 15:11 97 16 110/76 100 10/07/17 15:06 90 16 107/69 100 10/07/17 15:01 87 15 115/71 97 10/07/17 14:55 84 16 107/68 100 10/07/17 14:45 81 16 101/70 99 10/07/17 14:34 82 16 107/68 99 10/07/17 11:32 98.0 F 79 16 102/66 95 Intake and Output 10/07/17 10/08/17 10/08/17 23:59 07:59 15:59 Intake Total 1522 / 1522 Output Total 500 / 500 Balance 1022 / 1022 Intake: IV Fluids 1522 / 1522 0.9 % Sodium Chloride 1,000 ML 1000 / 1000 @ 150 mls/hr IVC .[id number] [facility] Rx #:[id number] KCl 40 MEQ Xylocaine 2 ML In 522 / 522 Dextrose 5% 500 ML @ 130.5 mls/ hr IVPB ONCE ONE Rx#:[id number] Output: Stool 500 / 500 Other: # Urine Diapers 1 1 Weight 63.6 kg Blood Glucose* 135 Patient Weight 10/08/17 23:59 Weight 63.6 kg - General Appearance General appearance: Present: well-nourished EENT: Present: ATNC, PERRL, mucous membranes moist Neck: Present: supple Respiratory: Present: clear Cardiology: Present: no edema, regular rate, regular rhythm, normal S1, normal S2 Gastrointestinal: Present: no tenderness, no guarding Integumentary: Present: warm and dry Neurologic: Present: no focal deficit, no asterixis, alert and oriented x3 Additional Comments: MRDD Musculoskeletal: Present: deformities (b/l LE malformations) Psychiatric: Present: mood/affect appropriate, cooperative - Lab 10/11/17 04:20 10/11/17 04:20 Most recent lab results Calcium 8.7 mg/dL (8.6-10.3) 10/08/17 03:35 Phosphorus 2.9 mg/dL (2.7-4.5) 10/08/17 03:35 Magnesium 2.5 mg/dL (1.6-2.6) 10/08/17 03:35 Consult Discharge Plan - Plan Referrals: NONE,PCP [Non-Partnered Physician] - Omayra Block [Family Provider] -
--- NOTE | 2017-10-08 13:32 | Internal Med Progress Note ---
Date of Encounter: 10/08/17 Time of Encounter: 10:00 - Assessment and plan (1) TAYLOR (acute kidney injury) Current Visit: Yes Status: Acute Assessment and plan: Likely secondary to dehydration. TPN has been restarted. Nephrology is also following. His kidney function is improving TPN. IV fluids off once TPN is at goal. Avoid nephrotoxins. Monitor urine output. (2) Caloric malnutrition Current Visit: Yes Status: Acute Assessment and plan: Patient has had abdominal surgery recently with ileostomy placed. Patient has had a PICC and was receiving TPN. He has pulled his back 3 days ago and is not receiving any TPN since then. We ended up placing a port yesterday. TPN has been restarted. The patient still on potassium for which she has been given some more potassium by the anaesthesiologist. TPN to be adjusted per the dietitian. (3) Chest pain Current Visit: Yes Status: Acute Assessment and plan: Troponins remain not elevated. Echo with nothing remarkable. No chest pain. Qualifiers: Chest pain type: unspecified Qualified Code(s): R07.9 - Chest pain, unspecified (4) Hyponatremia Current Visit: Yes Status: Acute Assessment and plan: Resolved. (5) Hydrocephalus Current Visit: Yes Status: Chronic Assessment and plan: Chronic stable. (6) Spina bifida Current Visit: Yes Status: Chronic Assessment and plan: Chronic Qualifiers: Spinal region: lumbar Presence of hydrocephalus: with hydrocephalus Qualified Code(s): Q05.2 - Lumbar spina bifida with hydrocephalus (7) DVT prophylaxis Current Visit: Yes Status: Acute Assessment and plan: heparin subcutaneous - Subjective Interval history: Patient was seen and examined. No acute events. The patient has been started on TPN. A port has been placed yesterday. He is afebrile. Denies any symptoms. He is scared when he can be discharged. - Constitutional Vitals: Temp Pulse Resp BP Pulse Ox 98.3 F 94 16 110/78 93 10/08/17 11:48 10/08/17 11:48 10/08/17 11:48 10/08/17 11:48 10/08/17 11:48 General appearance: Present: cooperative, A&O X 1, pleasant, no acute distress Exam: GEN: NAD CVS: RRR. S1, S2, No m/r/g RESP: CTAB ABD: Soft, NT, ND, +BS. Ileostomy noted. EXT: No edema. 2+ DP. No rashes. Lower extremities are contracted. NEURO: Nonfocal Internal Medicine: Result - Labs CBC & Chem 7: 10/08/17 03:35 10/08/17 03:35 Labs: Short CBC 10/08/17 Range/Units 03:35 WBC 6.4 (4.3-11.1) K/mcL Hgb 9.9 L (12.9-16.9) g/dL Hct 31.8 L (37.5-50.1) % Plt Count 340 (140-400) K/mcL Neutrophils # 4.4 (1.6-8.9) K/mcL BMP 10/07/17 10/08/17 20:30 03:35 Sodium 140 Potassium 2.8 L 2.8 L Chloride 96 L Carbon Dioxide 32 H BUN 44 H Creatinine 3.04 H Glucose 137 H Calcium 8.7 Liver Function 10/08/17 Range/Units 03:35 Total Bilirubin 0.4 (0.3-1.0) mg/dL AST 15 (13-39) Units/L ALT 14 (7-52) Units/L Alkaline Phosphatase 39 (34-104) Units/L Albumin 3.4 L (3.5-5.7) g/dL - ABG Interpretation ABG results: PT/INR, D-dimer PT 12.7 Seconds (9.4-12.1) H 10/07/17 07:08 - Impressions Impressions Echocardiogram 10/06/17 23:30 Impressions: LVEF 60-65%. Normal LV chamber size, wall thickness and function. Mild left ventricular diastolic dysfunction. Normal right ventricular structure and function. No evidence of pulmonary hypertension. No significant valvular dysfunction. Left Ventricular Wall Motion: Rest Echo Findings All wall segments showed normal motion. Findings: Study Quality * Technically adequate exam. ECG Findings * Normal sinus rhythm. Left Ventricle * LVEF 60-65%. * Normal LV chamber size, wall thickness and function. * Mild left ventricular diastolic dysfunction. Right Ventricle * Normal right ventricular structure and function. Left Atrium * Mildly dilated left atrium. Right Atrium * Normal right atrial size. Interatrial Septum * Interatrial septum not well evaluated. Aortic Valve * Aortic valve not well visualized. * No aortic regurgitation. * No aortic stenosis. Mitral Valve * Normal mitral valve structure and function. * No mitral regurgitation. * No mitral stenosis. Tricuspid Valve * Normal tricuspid valve structure and function. * Trace tricuspid regurgitation. * No evidence of pulmonary hypertension. Pulmonic Valve * Normal pulmonic valve structure and function. * No pulmonic regurgitation. Aorta * Normally sized aortic root. Pericardium * The pericardium appears normal. IVC * The IVC is not well evaluated. Pulmonary Artery * Normal visualized portions of the main pulmonary artery. Consult Discharge Plan - Plan Referrals: NONE,PCP [Non-Partnered Physician] - Omayra Block [Family Provider] -
[2017-10-08] MEDS ORDERED: Clinimix E 5%-15% SOLUTION 2,000 ML with MVI, adult with vitamin K 10 ML IVC SCH (17:00)
[2017-10-08] MEDS ORDERED: *HR* LORazepam 2 MG/ML VIAL IVP ONE (23:57)
[2017-10-09] MEDS: Acetaminophen 325 MG TABLET PO PRN ×3 (00:26→20:51)
[2017-10-09] MEDS: *HR* Heparin 5,000 UNIT/ML VIAL SQ SCH ×2 (06:42→18:14)
[2017-10-09 09:54] LABS: Albumin 4.1 g/dL (3.5-5.7); Albumin/Globulin Ratio 0.9 (1.1-2.2); Bilirubin,Total 0.4 mg/dL (0.3-1.0); Calcium 10.3 mg/dL (8.6-10.3); Globulin 4.5 g/dL (2.4-3.5); Phosphorous 2.5 mg/dL (2.7-4.5); Potassium 3.1 mEq/L (3.5-5.1); Total Protein 8.6 g/dL (6.4-8.9)
[2017-10-09 09:56] LABS: Basophils % 0.3 %; Eosinophils # 0.1 K/mcL (0.0-0.6); Eosinophils % 0.6 %; Immature Granulocytes % 0.3 % (0-4); Lymphocytes # 2.3 K/mcL (0.6-4.6); Lymphocytes % 22.4 %; Mean Corpuscular HGB Conc 30.3 g/dL (31.6-35.5); Mean Corpuscular Hemoglobin 26.6 pg (28.0-33.3); Mean Corpuscular Volume 87.8 fL (83.0-100.0); Mean Platelet Volume 11.3 fL (9.4-12.4); Monocytes # 0.7 K/mcL (0.0-1.3); Monocytes % 6.9 %; Neutrophils # 7.1 K/mcL (1.6-8.9); Nucleated Red Blood Cells 0.2 /100 WBC (0); Platelet Count 373 K/mcL (140-400); Red Blood Count 4.44 M/mcL (4.19-5.50); Red Cell Distribution Width 13.9 % (11.5-14.5); Segmented Neutrophils % 69.5 %
[2017-10-09 10:36] LABS: Hemoglobin 11.8 g/dL (12.9-16.9)
--- NOTE | 2017-10-09 10:51 | Nephrology Progress Note ---
Date of Encounter: 10/09/17 Time of Encounter: 10:50 - Assessment and Plan (1) TAYLOR (acute kidney injury) Current Visit: Yes Status: Acute Rapidly improving. Still hypokalemic and I added KCl again today. Mag and Phos have both been elevated actually. Okay for the silk spreader to add K+ to the TPN. No need for SALESPERSON BOOKS, but continue to volume expand. Thank you. 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 Continue replacing KCl. No new recommendations today. Will follow and see the pt tomorrow (Tuesday). Objective - Vital Signs Vital signs: Vital Signs Temp Pulse Resp BP Pulse Ox 10/09/17 06:53 98.7 F 119 16 105/72 92 10/09/17 04:18 98.9 F 125 16 108/72 92 10/08/17 23:06 98.7 F 128 18 116/82 94 10/08/17 19:38 98.6 F 116 16 117/81 92 10/08/17 15:51 98.2 F 98 17 111/73 93 10/08/17 11:48 98.3 F 94 16 110/78 93 Intake and Output 10/08/17 10/09/17 10/09/17 23:59 07:59 15:59 Output Total 1650 / 1650 150 / 150 250 / 250 Balance -1650 / -1650 -150 / -150 -250 / -250 Output: Urine 700 / 700 250 / 250 Stool 950 / 950 150 / 150 Other: Stool Consistency liquid Stool Color Yellow # Voids 1 # Urine Diapers 1 Weight 64.6 kg Blood Glucose* 162 Patient Weight 10/09/17 23:59 Weight 64.6 kg - Lab 10/09/17 09:27 10/09/17 09:27 Most recent lab results Calcium 10.3 mg/dL (8.6-10.3) 10/09/17 09:27 Phosphorus 2.5 mg/dL (2.7-4.5) L 10/09/17 09:27 Magnesium 2.0 mg/dL (1.6-2.6) 10/09/17 09:27 Consult Discharge Plan - Plan Referrals: NONE,PCP [Non-Partnered Physician] - Omayra Block [Family Provider] -
--- NOTE | 2017-10-09 13:34 | Internal Med Progress Note ---
Date of Encounter: 10/09/17 Time of Encounter: 12:15 - Assessment and plan (1) TAYLOR (acute kidney injury) Current Visit: Yes Status: Acute Assessment and plan: Likely secondary to dehydration. TPN has been restarted. Nephrology is also following. His kidney function is improving again. Continue with TPN. Avoid nephrotoxins. Monitor urine output. Likely discharge tomorrow (2) Caloric malnutrition Current Visit: Yes Status: Acute Assessment and plan: Patient has had abdominal surgery recently with ileostomy placed. Patient has had a PICC and was receiving TPN. He has pulled his PICC 3 days ago and was not receiving any TPN since then. We ended up placing a port here. TPN has been restarted. The patient still low and potassium for which she has been given some more potassium by the commercial pest control technician. TPN to be adjusted per the dietitian. (3) Chest pain Current Visit: Yes Status: Acute Assessment and plan: Troponins remain not elevated. Echo with nothing remarkable. No chest pain. Qualifiers: Chest pain type: unspecified Qualified Code(s): R07.9 - Chest pain, unspecified (4) Hyponatremia Current Visit: Yes Status: Acute Assessment and plan: Resolved. (5) Hydrocephalus Current Visit: Yes Status: Chronic Assessment and plan: Chronic stable. (6) Spina bifida Current Visit: Yes Status: Chronic Assessment and plan: Chronic Qualifiers: Spinal region: lumbar Presence of hydrocephalus: with hydrocephalus Qualified Code(s): Q05.2 - Lumbar spina bifida with hydrocephalus (7) DVT prophylaxis Current Visit: Yes Status: Acute Assessment and plan: heparin subcutaneous - Subjective Interval history: Patient was seen and examined. No acute events. He was upset that he is not being discharged today. TPN continues to run a port. He is afebrile. Denies any symptoms. - Constitutional Vitals: Temp Pulse Resp BP Pulse Ox 97.6 F 124 16 115/71 90 10/09/17 11:01 10/09/17 11:01 10/09/17 11:01 10/09/17 11:01 10/09/17 11:01 General appearance: Present: cooperative, A&O X 1, pleasant, no acute distress Exam: GEN: NAD CVS: RRR. S1, S2, No m/r/g RESP: CTAB ABD: Soft, NT, ND, +BS. Ileostomy noted. EXT: No edema. 2+ DP. No rashes. Lower extremities are contracted. NEURO: Nonfocal Internal Medicine: Result - Labs CBC & Chem 7: 10/09/17 09:27 10/09/17 09:27 Labs: Short CBC 10/09/17 Range/Units 09:27 WBC 10.2 D (4.3-11.1) K/mcL Hgb 11.8 L D (12.9-16.9) g/dL Hct 39.0 (37.5-50.1) % Plt Count 373 (140-400) K/mcL Neutrophils # 7.1 (1.6-8.9) K/mcL BMP 10/08/17 10/09/17 15:08 09:27 Sodium 135 L Potassium 3.4 L 3.1 L Chloride 96 L Carbon Dioxide 25 BUN 37 H Creatinine 1.78 H Glucose 171 H Calcium 10.3 Liver Function 10/09/17 Range/Units 09:27 Total Bilirubin 0.4 (0.3-1.0) mg/dL AST 16 (13-39) Units/L ALT 19 (7-52) Units/L Alkaline Phosphatase 43 (34-104) Units/L Albumin 4.1 (3.5-5.7) g/dL - ABG Interpretation ABG results: PT/INR, D-dimer PT 12.7 Seconds (9.4-12.1) H 10/07/17 07:08 Consult Discharge Plan - Plan Referrals: NONE,PCP [Non-Partnered Physician] - Omayra Block [Family Provider] -
[2017-10-09] MEDS ORDERED: Potassium Chloride 40 MEQ, Lidocaine 1% 2 ML in D5% in Water 500 ML IVPB ONE (13:52)
[2017-10-09] MEDS ORDERED: 0.9 % Sodium Chloride 500 ML IVC ONE (14:12)
[2017-10-09] MEDS ORDERED: *HR* LORazepam 2 MG/ML VIAL IVP ONE (17:04)
[2017-10-09] MEDS: Clinimix E 5%-15% SOLUTION 2,000 ML with MVI, adult with vitamin K 10 ML IVC SCH (18:06)
[2017-10-09] MEDS ORDERED: 0.9 % Sodium Chloride 1,000 ML IVC ONE (20:02)
[2017-10-10] MEDS: *HR* Metoprolol 5 MG/5 ML VIAL IVP PRN ×2 (01:09→18:03)
[2017-10-10 05:02] LABS: Basophils % 0.3 %; Eosinophils # 0.1 K/mcL (0.0-0.6); Eosinophils % 1.3 %; Hemoglobin 11.6 g/dL (12.9-16.9); Immature Granulocytes % 0.3 % (0-4); Lymphocytes # 2.4 K/mcL (0.6-4.6); Lymphocytes % 22.9 %; Mean Corpuscular HGB Conc 31.4 g/dL (31.6-35.5); Mean Corpuscular Hemoglobin 27.4 pg (28.0-33.3); Mean Corpuscular Volume 87.5 fL (83.0-100.0); Mean Platelet Volume 11.6 fL (9.4-12.4); Monocytes # 0.7 K/mcL (0.0-1.3); Monocytes % 6.2 %; Neutrophils # 7.2 K/mcL (1.6-8.9); Platelet Count 321 K/mcL (140-400); Red Blood Count 4.23 M/mcL (4.19-5.50); Red Cell Distribution Width 14.2 % (11.5-14.5)
[2017-10-10 05:27] LABS: Alanine Aminotransferase 26 Units/L (7-52); Albumin 3.8 g/dL (3.5-5.7); Albumin/Globulin Ratio 0.9 (1.1-2.2); Alkaline Phosphatase 44 Units/L (34-104); Aspartate Amino Transferase 23 Units/L (13-39); BUN/Creatinine Ratio 22 (6-26); Bilirubin,Total 0.4 mg/dL (0.3-1.0); Blood Urea Nitrogen 29 mg/dL (6-20); Calcium 9.9 mg/dL (8.6-10.3); Carbon Dioxide 23 mEq/L (23-29); Chloride 99 mEq/L (98-107); Globulin 4.1 g/dL (2.4-3.5); Glucose 146 mg/dL (70-105); Magnesium 1.7 mg/dL (1.6-2.6); Osmolality,Calculated 288 (280-300); Sodium 135 mEq/L (136-145); Total Protein 7.9 g/dL (6.4-8.9); eGFR For African Americans > 60 (> 60); eGFR For Non-African Americans > 60 (> 60)
[2017-10-10] MEDS: *HR* Heparin 5,000 UNIT/ML VIAL SQ SCH ×2 (06:37→17:41)
[2017-10-10] MEDS ORDERED: Potassium Chloride 40 MEQ, Lidocaine 1% 2 ML in D5% in Water 500 ML IVPB ONE (07:07)
--- NOTE | 2017-10-10 08:27 | Nephrology Progress Note ---
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 Urine osmolality, urine sodium, and urine creatinine pending TAYLOR/ATN likely secondary to volume depletion from discontinued TPN and increased GI losses. Maintain positive volume status of 1.5-2 liters daily until renal function recovers. No uremia or immediate need for dialysis. Closely monitor renal function Patient will need outpatint BMP in 1 week and nephrology follow up with Dr. Bernstein in clinic in 3-4 weeks Will sign off, please contact if necessary (2) Hypokalemia Current Visit: Yes Status: Acute K 3.0 Supplement Potassium IV Case discussed with import/export analyst, jayy to add K+ to the TPN. Repeat K level pending Continue to monitor closely (3) Hyponatremia Current Visit: Yes Status: Acute Resolved Continue to monitor (4) Hypochloremia Current Visit: Yes Status: Acute Suspect that metabolic derangements are secondary to GI losses in the context of lack of TPN for the 3 days prior to arrival VBG: pH 7.69, pCO2 34, pO2 176, HCO3 41 Serum Chloride 66 --> 99 Continue IV NS and monitor (5) Hypermagnesemia Current Visit: Yes Status: Acute Mag 3.7 --> 1.7 Continue to monitor (6) Hyperphosphatemia Current Visit: Yes Status: Acute Phos 12.5 --> 2.0 Continue to monitor (7) Dysphagia Current Visit: Yes Status: Acute Rehab facility staff noted patient became very agitated 3 days prior to arrival and pulled out his PICC line. CVC in place Continue TPN administration Dietary following Qualifiers: Dysphagia type: unspecified Qualified Code(s): R13.10 - Dysphagia, unspecified (8) Ileostomy present Current Visit: Yes Status: Chronic Patient has been in rehab for the past month s/p small bowel resection and ileostomy due to ruptured small bowel obstruction caused by post-operative adhesions. CT abd/plv reveals bilateral lower abdomen ostomies. No evidence for bowel obstruction. (9) Spina bifida Current Visit: Yes Status: Chronic Patient is wheelchair bound CT abd/plv reveals non fusion of posterior elements of lumbar vertebrae with enlargement of the thecal sac Qualifiers: Spinal region: lumbar Presence of hydrocephalus: with hydrocephalus Qualified Code(s): Q05.2 - Lumbar spina bifida with hydrocephalus (10) Hydrocephalus Current Visit: Yes Status: Chronic Patient recently had his intracranial shunts replaced due to concern for systemic infection. Subjective Principal diagnosis: TAYLOR Interval history: Patient seen and examined. Patient reports no acute complaints this AM. Labs are notable for hypokalemia. Patient is receiving TPN. Objective - Vital Signs Vital signs: Vital Signs Temp Pulse Resp BP Pulse Ox 10/10/17 07:28 98.9 F 128 14 107/72 90 10/10/17 04:38 99.0 F 122 16 95/67 92 10/10/17 00:11 99.2 F 138 16 102/71 92 10/09/17 20:13 100.9 F H 145 18 119/83 92 10/09/17 16:25 98.1 F 143 16 118/86 92 10/09/17 13:54 151 18 117/85 92 10/09/17 11:01 97.6 F 124 16 115/71 90 Intake and Output 10/09/17 10/10/17 10/10/17 23:59 07:59 15:59 Output Total 975 / 975 500 / 500 Balance -975 / -975 -500 / -500 Output: Stool 975 / 975 500 / 500 Other: Stool Consistency liquid Stool Color Yellow # Urine Diapers 1 Blood Glucose* 152 146 - General Appearance General appearance: Present: well-developed, well-nourished, obese, chronically ill EENT: Present: mucous membranes moist Additional Comments: posterior C-spine PHOTOGRAPHIC EQUIPMENT ASSEMBLER shunt incisions well healed Neck: Present: no JVD, supple Respiratory: Present: clear Additional Comments: equal breath sounds bilaterally Gastrointestinal: Present: normoactive bowel sounds, tenderness Additional Comments: Well-healed post-surgical midline scar with bilateral lower abdomen ostomies Integumentary: Present: no rash, warm and dry Neurologic: Present: no focal deficit, alert and oriented x3 Musculoskeletal: Present: deformities (bilateral lower extremity contractures) Psychiatric: Present: mood/affect appropriate, cooperative - Lab 10/10/17 03:55 01/22/18 03:55 Most recent lab results Calcium 9.9 mg/dL (8.6-10.3) 10/10/17 03:55 Phosphorus 2.0 mg/dL (2.7-4.5) L 10/10/17 03:55 Magnesium 1.7 mg/dL (1.6-2.6) 10/10/17 03:55 Consult Discharge Plan - Plan Referrals: NONE,PCP [Non-Partnered Physician] - Omayra Block [Family Provider] -
[2017-10-10] MEDS ORDERED: 0.9 % Sodium Chloride 500 ML IVC ONE (08:47)
--- NOTE | 2017-10-10 08:55 | Internal Med Progress Note ---
Date of Encounter: 10/10/17 Time of Encounter: 08:53 - Assessment and plan (1) Febrile illness, acute Current Visit: Yes Status: Acute Assessment and plan: Etiology is unclear at the moment. He is tachycardic as well. His white count did jump up to around 10 compared to 6 previously. Area around the port is in. We will check blood cultures including a set from the port. Check urinalysis. Chest x-ray with no acute findings. Check lactic acid. We will bolus the patient 500 mL normal saline. We will start broad-spectrum antibiotics after that. The patient is not ready for discharge. (2) TAYLOR (acute kidney injury) Current Visit: Yes Status: Acute Assessment and plan: Likely secondary to dehydration. Seems to have resolved by now. TPN has been restarted. Nephrology is also following. Continue with TPN. Avoid nephrotoxins. Monitor urine output. (3) Hypokalemia Current Visit: Yes Status: Acute Assessment and plan: Patient is consistently hypokalemic and we will give him oral and IV supplements today. We will ask the dietitian to change his TPN. (4) Caloric malnutrition Current Visit: Yes Status: Acute Assessment and plan: Patient has had abdominal surgery recently with ileostomy placed. Patient has had a PICC and was receiving TPN. He has pulled his PICC 3 days ago and was not receiving any TPN since then. We ended up placing a port here. TPN has been restarted. The patient still low and potassium for which she has been given some more potassium by the sales inspector. TPN to be adjusted per the dietitian. (5) Chest pain Current Visit: Yes Status: Acute Assessment and plan: Troponins remain not elevated. Echo with nothing remarkable. No chest pain. Qualifiers: Chest pain type: unspecified Qualified Code(s): R07.9 - Chest pain, unspecified (6) Hyponatremia Current Visit: Yes Status: Acute Assessment and plan: Resolved. (7) Hydrocephalus Current Visit: Yes Status: Chronic Assessment and plan: Chronic stable. (8) Spina bifida Current Visit: Yes Status: Chronic Assessment and plan: Chronic Qualifiers: Spinal region: lumbar Presence of hydrocephalus: with hydrocephalus Qualified Code(s): Q05.2 - Lumbar spina bifida with hydrocephalus (9) DVT prophylaxis Current Visit: Yes Status: Acute Assessment and plan: heparin subcutaneous - Subjective Interval history: Patient was seen and examined. He had a fever of 100.9 No acute events yesterday evening. Denies any cough. He has no urinary symptoms however he is incontinent. . TPN continues to run through port. He is afebrile. Denies any symptoms. - Constitutional Vitals: Temp Pulse Resp BP Pulse Ox 98.9 F 128 14 107/72 90 10/10/17 07:28 10/10/17 07:28 10/10/17 07:28 10/10/17 07:28 10/10/17 07:28 General appearance: Present: cooperative, A&O X 1, pleasant, no acute distress Exam: GEN: NAD CVS: Tachycardic. S1, S2, No m/r/g RESP: CTAB ABD: Soft, NT, ND, +BS. Ileostomy noted. EXT: No edema. 2+ DP. No rashes. Lower extremities are contracted. NEURO: Nonfocal Internal Medicine: Result - Labs CBC & Chem 7: 10/10/17 03:55 10/10/17 03:55 Labs: Short CBC 10/09/17 10/10/17 Range/Units 09:27 03:55 WBC 10.2 D 10.4 (4.3-11.1) K/mcL Hgb 11.8 L D 11.6 L (12.9-16.9) g/dL Hct 39.0 37.0 L (37.5-50.1) % Plt Count 373 321 (140-400) K/mcL Neutrophils # 7.1 7.2 (1.6-8.9) K/mcL BMP 10/09/17 10/10/17 09:27 03:55 Sodium 135 L 135 L Potassium 3.1 L 3.0 L Chloride 96 L 99 Carbon Dioxide 25 23 BUN 37 H 29 H Creatinine 1.78 H 1.30 Glucose 171 H 146 H Calcium 10.3 9.9 Cardiac Enzymes 10/09/17 10/09/17 10/10/17 Range/Units 14:43 21:02 03:55 Troponin I < 0.03 < 0.03 < 0.03 (< 0.04) ng/mL Liver Function 10/09/17 10/10/17 Range/Units 09:27 03:55 Total Bilirubin 0.4 0.4 (0.3-1.0) mg/dL AST 16 23 (13-39) Units/L ALT 19 26 (7-52) Units/L Alkaline Phosphatase 43 44 (34-104) Units/L Albumin 4.1 3.8 (3.5-5.7) g/dL - ABG Interpretation ABG results: PT/INR, D-dimer PT 12.7 Seconds (9.4-12.1) H 10/07/17 07:08 - Impressions Impressions Chest X-Ray 10/09/17 20:38 IMPRESSION: No acute disease. D/ / Lenard Martinez MD / Lenard Martinez MD Interpreting Provider: Lenard Martinez MD Consult Discharge Plan - Plan Referrals: NONE,PCP [Non-Partnered Physician] - Omayra Block [Family Provider] -
[2017-10-10] MEDS ORDERED: Vancomycin 1,000 MG in D5% in Water 250 ML IVPB SCH (09:00)
[2017-10-10] MEDS: Vancomycin 750 MG in D5% in Water 250 ML IVPB SCH ×2 (10:58→21:39)
[2017-10-10] MEDS: Acetaminophen 325 MG TABLET PO PRN (14:56)
[2017-10-10] MEDS ORDERED: Clinimix E 5%-15% SOLUTION 2,000 ML with MVI, adult with vitamin K 10 ML, Potassium A... IVC SCH (17:00)
[2017-10-10 17:34] LABS: Bilirubin,Urine Negative (Negative); Blood,Urine Negative (Negative); Clarity,Urine Clear (Clear); Color,Urine Yellow (Yellow); Glucose,Urine (UA) 500 mg/dL (Normal); Ketones,Urine Negative (Negative); Leukocyte Esterase,Urine Small (Negative); Nitrite,Urine Negative (Negative); PH,Urine 7.5 pH Units (5.0-8.0); Protein,Urine Trace mg/dL (Neg-Trace); Urobilinogen,Urine Normal (Normal)
[2017-10-10 17:36] LABS: Bacteria,Urine None Seen per hpf (None-Few); Hyaline Casts,Urine None Seen per lpf (None-Few); Squamous Epithelial Cell,Urine Many per lpf (None-Few); WBC,Urine 15-30 per hpf (0-3)
[2017-10-10] MEDS: Clinimix E 5%-15% SOLUTION 2,000 ML with MVI, adult with vitamin K 10 ML IVC SCH (17:36)
[2017-10-10] MEDS: Cefepime HCl 1,000 MG in Water for inj. (sterile) 10 ML IVP SCH (17:40)
[2017-10-10 18:03] LABS: Sodium, Urine 32.7 mEq/L
[2017-10-10] MEDS: Famotidine 20 MG TABLET PO SCH (21:39)
[2017-10-11] MEDS: *HR* Metoprolol 5 MG/5 ML VIAL IVP PRN (01:09)
[2017-10-11 04:50] LABS: Basophils % 0.4 %; Eosinophils # 0.2 K/mcL (0.0-0.6); Eosinophils % 2.8 %; Hemoglobin 11.1 g/dL (12.9-16.9); Immature Granulocytes % 0.4 % (0-4); Lymphocytes # 2.4 K/mcL (0.6-4.6); Lymphocytes % 28.2 %; Mean Corpuscular HGB Conc 31.7 g/dL (31.6-35.5); Mean Corpuscular Hemoglobin 27.6 pg (28.0-33.3); Mean Corpuscular Volume 87.1 fL (83.0-100.0); Mean Platelet Volume 11.4 fL (9.4-12.4); Monocytes # 0.6 K/mcL (0.0-1.3); Monocytes % 6.5 %; Neutrophils # 5.2 K/mcL (1.6-8.9); Platelet Count 306 K/mcL (140-400); Red Blood Count 4.02 M/mcL (4.19-5.50); Red Cell Distribution Width 14.1 % (11.5-14.5); Segmented Neutrophils % 61.7 %
[2017-10-11 04:52] LABS: Alanine Aminotransferase 40 Units/L (7-52); Albumin 3.7 g/dL (3.5-5.7); Albumin/Globulin Ratio 0.9 (1.1-2.2); Alkaline Phosphatase 50 Units/L (34-104); Aspartate Amino Transferase 31 Units/L (13-39); BUN/Creatinine Ratio 21 (6-26); Bilirubin,Total 0.3 mg/dL (0.3-1.0); Blood Urea Nitrogen 24 mg/dL (6-20); Calcium 9.6 mg/dL (8.6-10.3); Carbon Dioxide 21 mEq/L (23-29); Chloride 100 mEq/L (98-107); Globulin 3.9 g/dL (2.4-3.5); Glucose 154 mg/dL (70-105); Osmolality,Calculated 281 (280-300); Potassium 3.6 mEq/L (3.5-5.1); Sodium 132 mEq/L (136-145); Total Protein 7.6 g/dL (6.4-8.9); eGFR For African Americans > 60 (> 60); eGFR For Non-African Americans > 60 (> 60)
[2017-10-11 04:54] LABS: Magnesium 1.6 mg/dL (1.6-2.6); Phosphorous 1.6 mg/dL (2.7-4.5)
[2017-10-11] MEDS: *HR* Heparin 5,000 UNIT/ML VIAL SQ SCH (06:33)
[2017-10-11] MEDS: Cefepime HCl 1,000 MG in Water for inj. (sterile) 10 ML IVP SCH (06:33)
[2017-10-11] MEDS: Acetaminophen 325 MG TABLET PO PRN (06:41)
[2017-10-11] MEDS: Famotidine 20 MG TABLET PO SCH (10:07)
[2017-10-11] MEDS: Vancomycin 750 MG in D5% in Water 250 ML IVPB SCH (10:08)
[2017-10-11] MEDS ORDERED: lamoTRIgine 100 MG TABLET PO SCH (11:00)
[2017-10-11] MEDS ORDERED: BRIVARACETAM 100 MG PO SCH (11:00)
--- NOTE | 2017-10-11 11:06 | Discharge Summary ---
Date of Encounter: 10/11/17 Time of Encounter: 11:02 - Discharge Diagnosis (1) Febrile illness, acute Priority: Primary Status: Acute (2) TAYLOR (acute kidney injury) Priority: Primary Status: Acute (3) Hypokalemia Priority: Primary Status: Acute (4) Caloric malnutrition Priority: Primary Status: Acute (5) Chest pain Priority: Primary Status: Acute Qualifiers: Chest pain type: unspecified Qualified Code(s): R07.9 - Chest pain, unspecified (6) Hyponatremia Priority: Primary Status: Acute (7) Hydrocephalus Priority: Secondary Status: Chronic (8) Spina bifida Priority: Secondary Status: Chronic Qualifiers: Spinal region: lumbar Presence of hydrocephalus: with hydrocephalus Qualified Code(s): Q05.2 - Lumbar spina bifida with hydrocephalus (9) UTI (urinary tract infection) Priority: Primary Status: Acute Qualifiers: Urinary tract infection type: acute cystitis Hematuria presence: without hematuria Qualified Code(s): N30.00 - Acute cystitis without hematuria - Discharge Medications Prescriptions: Levofloxacin [Levaquin] 500 mg PO DAILY #5 tablet Home Medications: Atenolol [Tenormin] 25 mg PO DAILY 10/06/17 [History] Bismuth Subsalicylate [PEPTO-BISMOL (262mg/15mL) Susp] 524 mg PO Q8H PRN [History] Brivaracetam [Briviact] 100 mg PO BID 10/06/17 [History] Dextrose 10 % in Water [Dextrose 10%-Water IV Solution] 2,400 ml IV AD 10/06/17 [History] Docusate [Colace] 100 mg PO BID PRN 10/06/17 [History] Esomeprazole Magnesium [Nexium] 40 mg PO DAILY PRN 10/06/17 [History] Gemfibrozil [Lopid] 600 mg PO BIDWM 10/06/17 [History] GuaiFENesin/Dextromethorphan [Tussin Dm Syrup] 10 ml PO Q6H PRN 10/06/17 [ History] Loperamide HCl [Anti-Diarrheal] 2 mg PO PER PKG DI PRN MDD 8 mg 10/06/17 [ History] Mirtazapine [Remeron] 45 mg PO 1800,2100 10/06/17 [History] Mvi, Adult No.4, Vit K, 1 of 2 [Infuvite Adult Vial 1] 5 ml IV AD 10/06/17 [ History] Mvi, Adult No.4, Vit K, 2 of 2 [Infuvite Adult Vial 2] 5 ml IV AD 10/06/17 [ History] Nystatin Cream [Mycostatin Cream] 1 appl TP BID 10/06/17 [History] Oxycodone HCl 5 mg PO Q6H PRN 10/06/17 [History] Quetiapine Fumarate [Seroquel] 50 mg PO 1200,209910/06/17 [History] Quetiapine Fumarate [Seroquel] 100 mg PO QAM 10/06/17 [History] Ranitidine HCl [Zantac] 150 mg PO BID 10/06/17 [History] Tpn 2,400 ml IV DAILY 10/06/17 [History] lamoTRIgine [Lamictal] 100 mg PO BID 10/06/17 [History] Levofloxacin [Levaquin] 500 mg PO DAILY #5 tablet 10/11/17 [Rx] Allergies/Adverse Reactions: 3 Allergy/AdvReac Type Severity Reaction Status Date / Time No Known Allergies Allergy Verified 10/06/17 13:55 Procedures/tests Complete & Pending: Procedures Performed prior 72 hours Category Date Time Status ECG 12 lead ECG [ECG] Stat Y 10/10/17 21:01 Ordered EKG [ECG 12 lead ECG] [ECG] Stat Y 10/09/17 13:53 Completed Date of admission: 10/06/17 17:18 Primary care physician: Jesse Mendoza Consults: 10/06/17 22:07 Consult to News Broadcaster [CONS] Routine Reason for SW Consult: Please assess patient for possible post-discharge planning needs and possible transfer to [facility] where ileostomy, PICC, and TPN mgmt started for continuation of care. 10/06/17 22:30 PICC Consult [Consult to Invasive Line Access Team] [CONS] Routine Reason for Consult: Pt. pulled PICC line out at [facility] on Tuesday and has not had TPN since then. Line Type: PICC 10/07/17 08:22 Consult to Interventional Radiology [CONS] Routine Consulting Provider: Radiology Interventional Cols Reason for Consult: port placement Call Completed: No 10/07/17 09:05 dietary consult [Consult to Nutrition] [CONS] Routine Comment: Consulting Provider: NUTRITION Reason for Dietary Consult: TPN Start and Manage - Patient Status Disposition: Transfer SNF Condition: Fair Overall status at discharge: patient is progressing back to baseline - Discharge Instructions Follow Up With: NONE,PCP [Non-Partnered Physician] - Omayra Block [Family Provider] - Gael Hernandez DO [Partnered Physician] - (2 weeks) Forms: ED Satisfaction Letter - Diet and Activity Activity: increase activity as tolerated Diet: other (full liquid diet) Hospital course: Mr. Benitez is a 31 year old male with medical hx of ileostomy, spina bifida, and hydrocephalus is from [facility] with chief complaint of abnormal lab values. Creatinine today was 9.32 on admission compared to normal creatinine previously. The patient is TPN dependent for the most part secondary to previous abdominal surgeries with ileostomy. He showed signs of dehydration with multiple electrolytes abnormalities. He was admitted to the hospitalist service. The patient previously had a PICC line which he pulled 3 days prior to this admission as he was tired of it according to the patient. He was hydrated aggressively. We did consult with nephrology. His kidney function did improve with hydration. We ended up placing a port placed over the PICC line in order to have the patient receive TPN. A port was placed and he was able to start on TPN again. His kidney function continued to improve and normalized. While hospitalized the patient was noted to have a low-grade temperature. Workup showed possible UTI. He possibly could also have some bronchitis. He has no infiltrate on chest x-ray however he did complain of cough. I ended up discharging the patient on Levaquin to treat both. His cultures remained negative. He was stable for discharge on 10/11. He will follow up with nephrology with a repeat BMP in a week. - Time Spent with Patient Total time spent providing and/or coordinating discharge services: - Constitutional Vitals: Temp Pulse Resp BP Pulse Ox 98 F 117 17 109/67 16 10/11/17 07:15 10/11/17 07:15 10/11/17 07:15 10/11/17 07:15 10/11/17 07:15 General appearance: Present: cooperative, A&O X 1, pleasant, no acute distress Exam: GEN: NAD CVS: Tachycardic. S1, S2, No m/r/g RESP: CTAB ABD: Soft, NT, ND, +BS. Ileostomy noted. EXT: No edema. 2+ DP. No rashes. Lower extremities are contracted. NEURO: Nonfocal
--- NOTE | 2017-10-11 11:07 | Physician Discharge Referral ---
ExtendedCare Referral Info Institutional Level of Care: Skilled - Diagnosis (1) Febrile illness, acute Priority: Primary Status: Acute (2) TAYLOR (acute kidney injury) Priority: Primary Status: Acute (3) Hypokalemia Priority: Primary Status: Acute (4) Caloric malnutrition Priority: Primary Status: Acute (5) Chest pain Priority: Primary Status: Acute (6) Hyponatremia Priority: Primary Status: Acute (7) Hydrocephalus Priority: Secondary Status: Chronic (8) Spina bifida Priority: Secondary Status: Chronic (9) UTI (urinary tract infection) Priority: Primary Status: Acute - Transfer Medications Prescriptions: Levofloxacin [Levaquin] 500 mg PO DAILY #5 tablet Home Medications: Atenolol [Tenormin] 25 mg PO DAILY 10/06/17 [History] Bismuth Subsalicylate [PEPTO-BISMOL (262mg/15mL) Susp] 524 mg PO Q8H PRN [History] Brivaracetam [Briviact] 100 mg PO BID 10/06/17 [History] Dextrose 10 % in Water [Dextrose 10%-Water IV Solution] 2,400 ml IV AD 10/06/17 [History] Docusate [Colace] 100 mg PO BID PRN 10/06/17 [History] Esomeprazole Magnesium [Nexium] 40 mg PO DAILY PRN 10/06/17 [History] Gemfibrozil [Lopid] 600 mg PO BIDWM 10/06/17 [History] GuaiFENesin/Dextromethorphan [Tussin Dm Syrup] 10 ml PO Q6H PRN 10/06/17 [ History] Loperamide HCl [Anti-Diarrheal] 2 mg PO PER PKG DI PRN MDD 8 mg 10/06/17 [ History] Mirtazapine [Remeron] 45 mg PO 1800,2100 10/06/17 [History] Mvi, Adult No.4, Vit K, 1 of 2 [Infuvite Adult Vial 1] 5 ml IV AD 10/06/17 [ History] Mvi, Adult No.4, Vit K, 2 of 2 [Infuvite Adult Vial 2] 5 ml IV AD 10/06/17 [ History] Nystatin Cream [Mycostatin Cream] 1 appl TP BID 10/06/17 [History] Oxycodone HCl 5 mg PO Q6H PRN 10/06/17 [History] Quetiapine Fumarate [Seroquel] 50 mg PO 1200,2100 10/06/17 [History] Quetiapine Fumarate [Seroquel] 100 mg PO QAM 10/06/17 [History] Ranitidine HCl [Zantac] 150 mg PO BID 10/06/17 [History] Tpn 2,400 ml IV DAILY 10/06/17 [History] lamoTRIgine [Lamictal] 100 mg PO BID 10/06/17 [History] Levofloxacin [Levaquin] 500 mg PO DAILY #5 tablet 10/11/17 [Rx] Allergies/Adverse Reactions: 3 Allergy/AdvReac Type Severity Reaction Status Date / Time No Known Allergies Allergy Verified 10/06/17 13:55 - Respiratory Orders Smoking Cessation: Smoking cessation has been advised. For more information, call the [place] Tobacco Quit Line at 3-501-WCSD-NOW. - Rehabiliation Orders Rehab Orders: Evaluation for Physical Therapy (TPN) CERTIFICATION: I certify that the transfer of the above named patient to an Extended Care Facility is necessary for the continuing treatment of the diagnosis listed. The above information is true and accurate reflection of patient's current condition. Confidential - Redisclosure prohibited without a patient's written consent.
[2017-10-11 12:02] VITALS: BP 108/76
[2017-10-11] MEDS ORDERED: Aminoglycoside Consult 1 EACH MC ONE (14:18)
[2017-10-11] MEDS ORDERED: Mirtazapine 15 MG TABLET PO SCH (18:00)
[2017-10-11] MEDS ORDERED: Brivaracetam [Briviact] 100 MG PO SCH (21:00)
--- NOTE | 2017-10-12 07:54 | Electrocardiograph Report ---
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
--- NOTE | 2017-10-12 08:15 | Electrocardiograph Report ---
[address] [place], [place] [address] Test Date: 2017-10-10 Pat Name: Adán Benitez Department: 112 Room: 2A37 Gender: M Manager Radio: : 1985 Requested By: Flakito Moscoso Order Number: [id number] Reading MD: Anthony Beltre MD Measurements Intervals Tarzan Rate: 120 P: 41 AK: 126 QRS: 113 QRSD: 77 T: 25 QT: 308 QTc: 379 Interpretive Statements SINUS TACHYCARDIA INDETERMINATE AXIS POSSIBLE INFERIOR MYOCARDIAL INFARCTION, PROBABLY OLD Electronically Signed On 10-12-2017 8:13:46 EST by Anthony Beltre MD
--- NOTE | 2017-10-12 08:15 | Electrocardiograph Report ---
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
== END 2017-10-11 14:19 | DRG 674 ==
LOC: EMEROO 13:51 → 2ANU 17:18
PROVIDERS: ADMIT Hospitalist; ATTEND Internal Medicine

== ENCOUNTER 2017-10-16 02:00 | Inpatient (IN) ==
--- NOTE | 2017-10-16 02:10 | Emergency Department Note ---
Disposition Clinical Impression: Atypical chest pain, Pneumomediastinum Disposition: Admitted As Inpatient Condition: Fair Instructions: Chest Pain (ED) Reasons to Return/Additional Instructions: Follow-up with your doctor. Return to emergency department if any symptoms worsen.. Referrals: NONE,PCP [Primary Care Provider] - Omayra Block [Family Provider] - Forms: ED Satisfaction Letter Time of Disposition: 03:51 Chest Pain HPI - General Chief Complaint: ED Chest Pain Stated Complaint: chest pain Time Seen by Provider: 10/16/17 02:02 Source: patient Limitations: no limitations Vital Signs Reviewed: Yes Nursing Notes Reviewed: Yes - History of Present Illness HPI Narrative: Patient to ED complaining of chest pain. Pain is in the upper center of his chest. Denies injury. Denies vomiting. States he thinks it is reflux. He is not short of breath. - Related Data Home Medications Medication Instructions Recorded Confirmed Atenolol [Tenormin] 25 mg PO DAILY 10/06/17 10/06/17 Bismuth Subsalicylate 524 mg PO Q8H PRN 10/06/17 10/06/17 [PEPTO-BISMOL (262mg/15mL) Susp] Brivaracetam [Briviact] 100 mg PO BID 10/06/17 10/06/17 Dextrose 10 % in Water [Dextrose 2,400 ml IV AD 10/06/17 10/06/17 10%-Water IV Solution] Docusate [Colace] 100 mg PO BID PRN 10/06/17 10/06/17 Esomeprazole Magnesium [Nexium] 40 mg PO DAILY PRN 10/06/17 10/06/17 Gemfibrozil [Lopid] 600 mg PO BIDWM 10/06/17 10/06/17 GuaiFENesin/Dextromethorphan 10 ml PO Q6H PRN 10/06/17 10/06/17 [Tussin Dm Syrup] Loperamide HCl [Anti-Diarrheal] 2 mg PO PER PKG DI PRN MDD 8 mg 10/06/17 Mirtazapine [Remeron] 45 mg PO 1800,2100 10/06/17 10/06/17 Mvi, Adult No.4, Vit K, 1 of 2 5 ml IV AD 10/06/17 10/06/17 [Infuvite Adult Vial 1] Mvi, Adult No.4, Vit K, 2 of 2 5 ml IV AD 10/06/17 10/06/17 [Infuvite Adult Vial 2] Nystatin Cream [Mycostatin Cream] 1 appl TP BID 10/06/17 10/06/17 Oxycodone HCl 5 mg PO Q6H PRN 10/06/17 10/06/17 Quetiapine Fumarate [Seroquel] 50 mg PO 1200,2100 10/06/17 10/06/17 Quetiapine Fumarate [Seroquel] 100 mg PO QAM 10/06/17 10/06/17 Ranitidine HCl [Zantac] 150 mg PO BID 10/06/17 10/06/17 Tpn 2,400 ml IV DAILY 10/06/17 10/06/17 lamoTRIgine [Lamictal] 100 mg PO BID 10/06/17 10/06/17 Previous Rx's Medication Instructions Recorded Levofloxacin [Levaquin] 500 mg PO DAILY #5 tablet 10/11/17 Allergies Allergy/AdvReac Type Severity Reaction Status Date / Time No Known Allergies Allergy Verified 10/06/17 13:55 All systems ED: reviewed and negative except as stated. Constitutional: Denies: fever Cardiovascular: Reports: chest pain Respiratory: Denies: dyspnea Gastrointestinal: Denies: vomiting, diarrhea Chest Pain PMH - Past Medical History Medical history: Reports: other Surgical history: Reports: colostomy Psychiatric history: Reports: depression - Social History Smoking Status: Unknown if ever smoked Alcohol use: Reports: none Drug use: Reports: none Physical Exam Patient awake and alert laying in bed. Legs atrophied. He does have erythema over the left side of the abdomen. Lungs clear. Heart tachycardia but regular. - General Limitations: no limitations - Head Head exam: atraumatic, normocephalic - Eye Eye exam: Present: normal appearance, PERRL - ENT ENT exam: normal exam, normal oropharynx - Neck Neck exam: Present: normal inspection - Chest Chest inspection: Present: normal inspection, symmetric chest wall rise - Respiratory Respiratory exam: Present: normal lung sounds bilaterally - Cardiovascular Cardiovascular exam: Present: regular rate, normal rhythm, normal heart sounds - Neurological Exam Neurological exam: Present: alert, oriented X3 - Psychiatric Psychiatric exam: Present: normal affect - Skin Skin exam: Present: warm, dry Course - Reevaluation(s) Reevaluation #1: CTA was checked for elevated d-dimer. He had a low oxygen saturation in the low 90s. Believe that the benefit of contrast outweighed the risk. Patient has pneumomediastinum. He is not vomiting. He is not felt to have an esophageal rupture. He has been discussed with CT surgery. We will give him some antibiotic. Blood culture sent. He is admitted to the hospitalist. Time: 05:40 - Consultations Consultation #1: Dr. Cesar accepts for admission Time: 05:40 Vital Signs Temperature 98.2 F 10/16/17 02:04 Pulse Rate 115 10/16/17 02:04 Respiratory Rate 18 10/16/17 02:04 Blood Pressure 116/81 10/16/17 02:04 O2 Sat by Pulse Oximetry 90 10/16/17 02:04 Temperature 98.2 F 10/16/17 02:04 Pulse Rate 115 10/16/17 02:04 Respiratory Rate 18 10/16/17 02:04 Blood Pressure 116/81 10/16/17 02:04 O2 Sat by Pulse Oximetry 90 10/16/17 02:04 Oxygen Delivery Oxygen Delivery Room Air Chest Pain - Medical Records Medical records reviewed: Yes I reviewed the patient's medical records. - Lab Data Result diagrams: 10/16/17 02:16 10/16/17 02:16 Lab Results 10/16/17 10/16/17 10/16/17 Range/Units 02:16 02:16 02:16 WBC 12.2 H (4.3-11.1) K/mcL RBC 4.49 (4.19-5.50) M/mcL Hgb 12.2 L (12.9-16.9) g/dL Hct 38.9 (37.5-50.1) % MCV 86.6 (83.0-100.0) fL MCH 27.2 L (28.0-33.3) pg MCHC 31.4 L (31.6-35.5) g/dL RDW 15.5 H (11.5-14.5) % Plt Count 462 H D (140-400) K/mcL MPV 11.5 (9.4-12.4) fL Immature Gran % 0.7 (0-4) % Seg Neutrophils % 72.5 % Lymphocytes % 16.9 % Monocytes % 9.1 % Eosinophils % 0.6 % Basophils % 0.2 % Neutrophils # 8.8 (1.6-8.9) K/mcL Lymphocytes # 2.1 (0.6-4.6) K/mcL Monocytes # 1.1 (0.0-1.3) K/mcL Eosinophils # 0.1 (0.0-0.6) K/mcL Basophils # 0.0 (0.0-0.2) K/mcL D-Dimer (0-500) ng/mLFEU Sodium 130 L (136-145) mEq/L Potassium 4.6 (3.5-5.1) mEq/L Chloride 95 L (98-107) mEq/L Carbon Dioxide 22 L (23-29) mEq/L BUN 78 H (6-20) mg/dL Creatinine 1.72 H (0.70-1.30) mg/dL Est GFR ( Amer) 56 L (> 60) Est GFR (Non-Af Amer) 47 L (> 60) BUN/Creatinine Ratio 45 H (6-26) Glucose 135 H (70-105) mg/dL Calculated Osmolality 295 (280-300) Calcium 10.1 (8.6-10.3) mg/dL Troponin I < 0.03 (< 0.04) ng/mL 10/16/17 Range/Units 02:50 WBC (4.3-11.1) K/mcL RBC (4.19-5.50) M/mcL Hgb (12.9-16.9) g/dL Hct (37.5-50.1) % MCV (83.0-100.0) fL MCH (28.0-33.3) pg MCHC (31.6-35.5) g/dL RDW (11.5-14.5) % Plt Count (140-400) K/mcL MPV (9.4-12.4) fL Immature Gran % (0-4) % Seg Neutrophils % % Lymphocytes % % Monocytes % % Eosinophils % % Basophils % % Neutrophils # (1.6-8.9) K/mcL Lymphocytes # (0.6-4.6) K/mcL Monocytes # (0.0-1.3) K/mcL Eosinophils # (0.0-0.6) K/mcL Basophils # (0.0-0.2) K/mcL D-Dimer 1492 H (0-500) ng/mLFEU Sodium (136-145) mEq/L Potassium (3.5-5.1) mEq/L Chloride (98-107) mEq/L Carbon Dioxide (23-29) mEq/L BUN (6-20) mg/dL Creatinine (0.70-1.30) mg/dL Est GFR ( Amer) (> 60) Est GFR (Non-Af Amer) (> 60) BUN/Creatinine Ratio (6-26) Glucose (70-105) mg/dL Calculated Osmolality (280-300) Calcium (8.6-10.3) mg/dL Troponin I (< 0.04) ng/mL - EKG Data EKG attestation: Yes I reviewed and interpreted this EKG. EKG results narrative: Sinus tach at 1:15. Poor R-wave progression. Specific ST changes. Normal axis. Normal intervals. Unchanged from EKG October 10. Heart Score - Score History: Slightly Suspicious EKG: Non Specific repolarisation Disturbance Age: Less than 45 Risk Factors: No risk factors known Troponin: Less than normal limit HEART Score Total: 1 Critical Care Time Critical Care Time: No
[2017-10-16 02:32] LABS: Basophils % 0.2 %; Eosinophils # 0.1 K/mcL (0.0-0.6); Eosinophils % 0.6 %; Hematocrit 38.9 % (37.5-50.1); Hemoglobin 12.2 g/dL (12.9-16.9); Immature Granulocytes % 0.7 % (0-4); Lymphocytes # 2.1 K/mcL (0.6-4.6); Lymphocytes % 16.9 %; Mean Corpuscular HGB Conc 31.4 g/dL (31.6-35.5); Mean Corpuscular Hemoglobin 27.2 pg (28.0-33.3); Mean Corpuscular Volume 86.6 fL (83.0-100.0); Mean Platelet Volume 11.5 fL (9.4-12.4); Monocytes # 1.1 K/mcL (0.0-1.3); Monocytes % 9.1 %; Neutrophils # 8.8 K/mcL (1.6-8.9); Platelet Count 462 K/mcL (140-400); Red Blood Count 4.49 M/mcL (4.19-5.50); Red Cell Distribution Width 15.5 % (11.5-14.5); Segmented Neutrophils % 72.5 %
[2017-10-16] MEDS ORDERED: GI Cocktail 40 ML EACH PO ONE (02:47)
[2017-10-16 03:01] LABS: Calcium 10.1 mg/dL (8.6-10.3); Potassium 4.6 mEq/L (3.5-5.1)
[2017-10-16] MEDS ORDERED: 0.9 % Sodium Chloride 500 ML IVC ONE (03:12)
[2017-10-16] MEDS ORDERED: Piperacillin/Tazobactam 3.375 GM in Water for inj. (sterile) 20 ML 20 ML IVPB STA ×2 (05:23→05:53)
--- NOTE | 2017-10-16 05:50 | Internal Med History&Physical ---
Date of Encounter: 10/16/17 Time of Encounter: 05:44 Assessment and Plan (1) Pneumomediastinum Current visit: Yes Status: Acute along with tachycardia, CP could be related to pneumomediastinum found on CT chest d/w ED who d/w case with CT surgery who will eval. in the morning Will keep NPO now, empiric IV zosyn, IVF. Blood cx sent from the ED Possibly related to his surgery in Aug 2017 at [facility] - pending CT surgery eval in a.m for further plan of care (2) Atypical chest pain Current visit: Yes Status: Acute along with tachycardia, unsure whether this is related to pneumomediastinum found on CT chest (3) Acute kidney injury superimposed on CKD Current visit: Yes Status: Acute start TPN IVF bolus, IVF trend Cr (4) Caloric malnutrition Current visit: No Status: Acute gets TPN through chest port (5) Ileostomy present Current visit: No Status: Chronic (6) Mental retardation Current visit: Yes Status: Acute (7) Hydrocephalus Current visit: No Status: Chronic (8) Spina bifida of lumbar spine Current visit: Yes Status: Acute Qualifiers: Presence of hydrocephalus: with hydrocephalus Qualified Code(s): Q05.2 - Lumbar spina bifida with hydrocephalus Internal Medicine - H&P: HPI Chief complaint: Stomach ache, Chest discomfort/pain History of present illness: Mr. Benitez is a 31 year old male who presents with Stomach ache, Chest discomfort/pain symptoms. Admitted for observation given CT with small amount of pneumomediastinum that had been there prior but with different distribution He provides limited hx from mild MRDD. He reported presented with stabbing chest pain that had been present prior (he said months ?? but hx unreliable given his MRDD). Hurts when he breathes. Stabbing in quality. Associated with epigastric stomach ache. Per review of hx, he has a hx of ileostomy, hx of spina bifida, and hydrocephalus. He resides in [facility]. He has a chest port and it is reported that although he takes meds by mouth but uses TPN for the most part secondary to previous abdominal surgeries with ileostomy. Medical records indicate that on 08/16/17, patient had extensive lysis of adhesions, right partial nephrectomy , small bowel resection with primary anastomosis. This was performed at [facility] and his surgeon was Dr Saenz. Indication was right renal mass, frozen abdomen, small bowel injury. On 08/25/17 patient had lap appendectomy and ileostomy with mucous fistula creation. He was later here at [facility] in Sep 2016 with TAYLOR - Cr 9.32 on admission compared to normal creatinine previously. He improved with conservative therapy and was sent back to long term several days prior to this current admission. EKG personally reviewed with sinus tachycardia. Rate 115 HISTORY: ORDERING SYSTEM PROVIDED HISTORY: CP elevated dimer 70 ml of [id number] Acute onset sternal chest pain and elevated D-dimer tonight. History of DVT. FINDINGS: Pulmonary Arteries: Subsegmental pulmonary arteries in the lung bases are limited due to motion artifact. The remainder of the pulmonary arteries are visualized and are without filling defect. Main pulmonary artery is normal in caliber. Mediastinum: The previously-seen small amount numerous mediastinum in the left lower lung and surrounding the distal left esophagus have resolved. New small foci of pneumomediastinum were seen within the upper anterior mediastinum. No evidence of mediastinal lymphadenopathy. Right internal jugular port and left internal jugular central venous catheters are seen. The heart and pericardium demonstrate no acute abnormality. There is no acute abnormality of the thoracic aorta. Lungs/pleura: The central airways are patent. There is no focal airspace consolidation, nodule, or mass. No pneumothorax or pleural effusion. Upper Abdomen: Limited images of the upper abdomen are unremarkable. Soft Tissues/Bones: No acute bone or soft tissue abnormality. CT/CT angio chest IMPRESSION: No evidence of pulmonary embolism. Small amount of nonspecific pneumomediastinum is seen within the upper anterior mediastinum. The previously seen small pneumomediastinum mediastinum inferiorly is no longer present. The etiology remains indeterminate. XR/XR chest 1V portable IMPRESSION: Stable chest x-ray. No acute disease. Past Med Surg Social Fam HX - Past Medical History Medical history: other Psychiatric history: depression - Past Surgical History Surgical History: colostomy - Social History Smoking Status: Unknown if ever smoked Smokeless Tobacco Status: No Alcohol use: none Drug use: none Internal Medicine - H&P: Meds Atenolol [Tenormin] 25 mg PO DAILY 10/06/17 [History] Bismuth Subsalicylate [PEPTO-BISMOL (262mg/15mL) Susp] 524 mg PO Q8H PRN [History] Brivaracetam [Briviact] 100 mg PO BID 10/06/17 [History] Dextrose 10 % in Water [Dextrose 10%-Water IV Solution] 2,400 ml IV AD 10/06/17 [History] Docusate [Colace] 100 mg PO BID PRN 10/06/17 [History] Esomeprazole Magnesium [Nexium] 40 mg PO DAILY PRN 10/06/17 [History] Gemfibrozil [Lopid] 600 mg PO BIDWM 10/06/17 [History] GuaiFENesin/Dextromethorphan [Tussin Dm Syrup] 10 ml PO Q6H PRN 10/06/17 [ History] Loperamide HCl [Anti-Diarrheal] 2 mg PO PER PKG DI PRN MDD 8 mg 10/06/17 [ History] Mirtazapine [Remeron] 45 mg PO 1800,2100 10/06/17 [History] Mvi, Adult No.4, Vit K, 1 of 2 [Infuvite Adult Vial 1] 5 ml IV AD 10/06/17 [ History] Mvi, Adult No.4, Vit K, 2 of 2 [Infuvite Adult Vial 2] 5 ml IV AD 10/06/17 [ History] Nystatin Cream [Mycostatin Cream] 1 appl TP BID 10/06/17 [History] Oxycodone HCl 5 mg PO Q6H PRN 10/06/17 [History] Quetiapine Fumarate [Seroquel] 50 mg PO 1200,2100 10/06/17 [History] Quetiapine Fumarate [Seroquel] 100 mg PO QAM 10/06/17 [History] Ranitidine HCl [Zantac] 150 mg PO BID 10/06/17 [History] Tpn 2,400 ml IV DAILY 10/06/17 [History] lamoTRIgine [Lamictal] 100 mg PO BID 10/06/17 [History] Levofloxacin [Levaquin] 500 mg PO DAILY #5 tablet 10/11/17 [Rx] 3 Allergy/AdvReac Type Severity Reaction Status Date / Time No Known Allergies Allergy Verified 10/06/17 13:55 All Systems PM: A 10-system review of systems was performed and is negative for pertinent findings except as documented above in the HPI. Review of systems: ROS 14 point review of systems reviewed as best as possible given presentation. Pertinent positive or negative as per HPI or otherwise reviewed as negative - Constitutional Vitals: Temp Pulse Resp BP Pulse Ox 98.2 F 115 18 116/81 90 10/16/17 02:04 10/16/17 02:04 10/16/17 02:04 10/16/17 02:04 10/16/17 02:04 Exam: General - AAO x 3 Psych - Appropriate affect/speech. No agitation Eyes - JAMIL. Eye lids intact. No scleral icterus Neuro - No gross peripheral or central neuro deficits with intact CN 2-12 exam Heart - Sinus. RRR. S1 and S2 present. No added HS/murmurs appreciated. No elevated JVD appreciated. Lung - Adequate air entry b/l, No crackles/wheezes appreciated GI - Ileostomy and mucus fistula. No hepatosplenomegaly/ascites. BS+ - No CVA/suprapubic tenderness or palpable bladder distension MSK - LE contracture Internal Med - H&P Results - Labs CBC & Chem 7: 10/16/17 02:16 10/16/17 02:16 Labs: Short CBC 10/16/17 Range/Units 02:16 WBC 12.2 H (4.3-11.1) K/mcL Hgb 12.2 L (12.9-16.9) g/dL Hct 38.9 (37.5-50.1) % Plt Count 462 H D (140-400) K/mcL Neutrophils # 8.8 (1.6-8.9) K/mcL BMP 10/16/17 02:16 Sodium 130 L Potassium 4.6 Chloride 95 L Carbon Dioxide 22 L BUN 78 H Creatinine 1.72 H Glucose 135 H Calcium 10.1 Cardiac Enzymes 10/16/17 Range/Units 02:16 Troponin I < 0.03 (< 0.04) ng/mL - Impressions ITS Impressions Chest X-Ray 10/16/17 02:02 IMPRESSION: Stable chest x-ray. No acute disease. D/ / Hung Go MD / Hung Go MD Interpreting Provider: Hung Go MD Chest CTA 10/16/17 04:15 IMPRESSION: No evidence of pulmonary embolism. Small amount of nonspecific pneumomediastinum is seen within the upper anterior mediastinum. The previously seen small pneumomediastinum mediastinum inferiorly is no longer present. The etiology remains indeterminate. D/ / Amina Bhat MD / Amina Bhat MD Interpreting Provider: Amina Bhat MD
[2017-10-16] MEDS ORDERED: Naloxone 0.4 MG/ML INJ IVP PRN (06:13)
[2017-10-16] MEDS ORDERED: 0.9 % Sodium Chloride 1,000 ML IVC ONE (06:14)
--- NOTE | 2017-10-16 08:06 | Internal Med Progress Note ---
Date of Encounter: 10/16/17 Time of Encounter: 08:05 - Subjective Interval history: HPI: The pt. is a 31 year old developmentally delayed man who presented in the ER last evening c/o chest and abd pain. His D-dimer was elevated so a CTA-chest was done revealing a small amount of pneumomediastinum. This has been noted previously but with a different distribution. Per records he requires chronic TPN therapy secondary to previous bowel surgeries. Medical records indicate that he had an extensive lysis of adhesions surgery and also had a right partial nephrectomy, small bowel resection with primary anastomosis an ileostomy formation. He had a right renal mass and his partial nephrectomy was performed at [facility]. He had a small bowel injury and requiring small bowel resection and ileostomy with mucous fistula creation. Additionally he's had a lap appendectomy. He takes pills by mouth but relies on TPN for nutrition per records. He was seen last week a [facility] for placement of a port (rt. upper chest wall) by IR to be used for TPN administration. His port was placed earlier this month. Assessment and Plan (1) Pneumomediastinum CT surgery eval in a.m for further plan of care (2) Atypical chest pain Likely related to pneumomediastinum (3) Acute kidney injury superimposed on CKD Consult dietary / hutrionist to start TPN (4) Caloric malnutrition TPN through chest port (5) Ileostomy present Consult wound/ostomy care service (6) Mental retardation Current visit: Yes Status: Acute (7) Hydrocephalus Current visit: No Status: Chronic (8) Spina bifida of lumbar spine Current visit: Yes Status: Acute - Constitutional Vitals: Temp Pulse Resp BP Pulse Ox 99.3 F 102 20 85/58 90 10/16/17 07:05 10/16/17 07:05 10/16/17 07:05 10/16/17 07:05 10/16/17 07:05 General appearance: Present: pleasant, no acute distress. Absent: answers questions appropriately - Head Head exam: Present: normocephalic Additional comments: He has a crainotomy scar over the right occipital/parietal region. - Eye Eye exam: Present: EOMI, PERRL, conjuntiva pink, sclera anicteric Pupils: Present: PERRL - Neck Neck exam general surgery: Present: supple, trachea midline. Absent: full ROM, lymphadenopathy, tenderness, nuchal rigidity, thyromegaly - Respiratory Respiratory exam: Present: CTAB. Absent: accessory muscle use, rales, rhonchi, wheezes - Cardiovascular Cardiovascular exam: Present: RRR, +S1, +S2. Absent: diastolic murmur, gallop, rubs, systolic murmur - GI/Abdominal GI/Abdominal exam: Present: normal bowel sounds, soft, no peritoneal signs. Absent: distended, firm, guarding, rebound, rigid, tenderness - Extremities Exam Extremities exam: Present: warm, radial pulses palpable and symmetrical. Absent : calf tenderness, cyanotic, pedal edema - Neurological Exam Neurological exam: Present: CN II-XII intact, oriented X3, no focal deficits. Absent: pronater drift, facial droop, speech deficit - Skin Skin exam: Present: dry, intact, warm Internal Medicine: Result - Labs CBC & Chem 7: 10/16/17 02:16 10/16/17 02:16 - ABG Interpretation ABG results: PT/INR, D-dimer D-Dimer 1492 ng/mLFEU (0-500) H 10/16/17 02:50 Consult Discharge Plan - Plan Referrals: NONE,PCP [Primary Care Provider] - Omayra Block [Family Provider] -
[2017-10-16] MEDS: Pantoprazole 40 MG VIAL IVP SCH (08:40)
[2017-10-16] MEDS: Ringers Solution, Lactated 1,000 ML IVC SCH ×2 (08:40→18:03)
--- NOTE | 2017-10-16 09:18 | Cardiothoracic Consult Note ---
Date of Encounter: 10/16/17 Time of Encounter: 09:14 Assessment and Plan (1) Hydrocephalus Current Visit: No Status: Chronic The assessment and plan as outlined above was discussed with the patient and/or family members who expressed understanding and agreement. All questions were answered. The patient is afebrile. White blood cell count is 12,000. This appears to be benign pneumomediastinum. It is possible that air has tracked up from the inferior mediastinum, which was present on October 07. The air might also be related to the right subclavian line. He has had this previously and it is always resolved. It is possible that he gets retroperitoneal air from his ostomies and that a small amount of this has tracked into the mediastinum. I would watch him overnight and if he does okay he could be discharged tomorrow. - History of Present Illness History of present illness: Mr. Benitez is a 31 year old male The patient is a 31-year-old male who has mental retardation and lives in [place] [facility]. He has a long, complicated history. He was admitted this morning with abdominal pain and chest pain. In July 2017, he had abdominal surgery at [facility] which included lysis of adhesions, small bowel resection, partial right nephrectomy and ileostomy as well as mucous fistula. A chest x-ray done in the emergency room revealed no pneumothorax. A CT scan of the chest revealed a small amount of air in the superior, anterior mediastinum. He has had this previously and it has resolved. He did have a CT scan of the chest on September. This revealed some pneumomediastinum which was inferior and posterior around the esophagus. This was improved from previous CT scans. This is no longer present. The patient has had no recent nausea, vomiting or other symptoms of esophageal problems. Past medical history is notable for the venous thrombosis. He also has a history of kidney disease. His creatinine has been as high as 9.32 in the past. On today's admission, it is 1.7. The patient also has a history of spinal bifida and hydrocephalus. Past Med Surg Social Fam HX - Past Medical History Medical history: other Psychiatric history: depression - Past Surgical History Surgical History: colostomy - Social History Smoking Status: Unknown if ever smoked Smokeless Tobacco Status: No Alcohol use: none Drug use: none Medications and Allergies Atenolol [Tenormin] 25 mg PO DAILY 10/06/17 [History] Bismuth Subsalicylate [PEPTO-BISMOL (262mg/15mL) Susp] 524 mg PO Q8H PRN [History] Brivaracetam [Briviact] 100 mg PO BID 10/06/17 [History] Dextrose 10 % in Water [Dextrose 10%-Water IV Solution] 2,400 ml IV AD 10/06/17 [History] Docusate [Colace] 100 mg PO BID PRN 10/06/17 [History] Esomeprazole Magnesium [Nexium] 40 mg PO DAILY PRN 10/06/17 [History] Gemfibrozil [Lopid] 600 mg PO BIDWM 10/06/17 [History] GuaiFENesin/Dextromethorphan [Tussin Dm Syrup] 10 ml PO Q6H PRN 10/06/17 [ History] Loperamide HCl [Anti-Diarrheal] 2 mg PO PER PKG DI PRN MDD 8 mg 10/06/17 [ History] Mirtazapine [Remeron] 45 mg PO 1800,2100 10/06/17 [History] Mvi, Adult No.4, Vit K, 1 of 2 [Infuvite Adult Vial 1] 5 ml IV AD 10/06/17 [ History] Mvi, Adult No.4, Vit K, 2 of 2 [Infuvite Adult Vial 2] 5 ml IV AD 10/06/17 [ History] Nystatin Cream [Mycostatin Cream] 1 appl TP BID 10/06/17 [History] Oxycodone HCl 5 mg PO Q6H PRN 10/06/17 [History] Quetiapine Fumarate [Seroquel] 50 mg PO 1200,2100 10/06/17 [History] Quetiapine Fumarate [Seroquel] 100 mg PO QAM 10/06/17 [History] Ranitidine HCl [Zantac] 150 mg PO BID 10/06/17 [History] Tpn 2,400 ml IV DAILY 10/06/17 [History] lamoTRIgine [Lamictal] 100 mg PO BID 10/06/17 [History] Levofloxacin [Levaquin] 500 mg PO DAILY #5 tablet 10/11/17 [Rx] 3 Allergy/AdvReac Type Severity Reaction Status Date / Time No Known Allergies Allergy Verified 10/06/17 13:55 All Systems Review: A 10-system review of systems was performed and is negative for pertinent findings except as documented above in the HPI. Physical Examination Vital Signs, Last 4 Hours Temp Pulse Resp BP Pulse Ox 10/16/17 07:05 99.3 F 102 20 85/58 90 10/16/17 06:29 100 18 96/66 95 The patient has a port in his right subclavian area. He has scar tissue in his left subclavian area from previous ports. His lungs are clear to percussion and auscultation. His heart is in a regular rate and rhythm. No murmurs, gallops or rubs. He is abdomen is benign. No tenderness, rebound or guarding. He does have an ileostomy with substantial leak around the ileostomy. This area is inflamed and reddened. He also has a mucous fistula. Results 10/16/17 02:16 10/16/17 02:16 Consult Discharge Plan - Plan Referrals: NONE,PCP [Primary Care Provider] - Omayra Block [Family Provider] -
[2017-10-16] MEDS: *HR* Heparin 5,000 UNIT/ML VIAL SQ SCH (17:58)
[2017-10-17 03:57] LABS: Basophils % 0.5 %; Eosinophils # 0.1 K/mcL (0.0-0.6); Eosinophils % 1.9 %; Hematocrit 35.7 % (37.5-50.1); Hemoglobin 11.1 g/dL (12.9-16.9); Immature Granulocytes % 0.5 % (0-4); Lymphocytes # 2.6 K/mcL (0.6-4.6); Lymphocytes % 41.3 %; Mean Corpuscular HGB Conc 31.1 g/dL (31.6-35.5); Mean Corpuscular Hemoglobin 27.2 pg (28.0-33.3); Mean Corpuscular Volume 87.5 fL (83.0-100.0); Mean Platelet Volume 11.2 fL (9.4-12.4); Monocytes # 0.4 K/mcL (0.0-1.3); Monocytes % 6.9 %; Neutrophils # 3.1 K/mcL (1.6-8.9); Platelet Count 391 K/mcL (140-400); Red Blood Count 4.08 M/mcL (4.19-5.50); Red Cell Distribution Width 15.6 % (11.5-14.5); Segmented Neutrophils % 48.9 %
[2017-10-17] MEDS ORDERED: *HR* Alteplase (Cathflo) 2 MG VIAL IVP ONE (05:20)
[2017-10-17] MEDS: *HR* Heparin 5,000 UNIT/ML VIAL SQ SCH (05:50)
[2017-10-17] MEDS: Pantoprazole 40 MG VIAL IVP SCH (05:50)
[2017-10-17 08:55] LABS: Blood Urea Nitrogen 51 mg/dL (6-20); Calcium 9.5 mg/dL (8.6-10.3); Carbon Dioxide 20 mEq/L (23-29); Chloride 102 mEq/L (98-107); Glucose 81 mg/dL (70-105); Magnesium 2.3 mg/dL (1.6-2.6); Osmolality,Calculated 289 (280-300); Sodium 133 mEq/L (136-145)
[2017-10-17 09:33] LABS: BUN/Creatinine Ratio 35 (6-26); eGFR For African Americans > 60 (> 60); eGFR For Non-African Americans 57 (> 60)
--- NOTE | 2017-10-17 09:38 | Cardiothoracic Progress Note ---
Date of Encounter: 10/17/17 Time of Encounter: 09:35 - Assessment and plan (1) Pneumomediastinum Current Visit: Yes Status: Acute The patient has had no sequelae of his incidental finding of anterior mediastinal air. This has been present on a previous chest CT; however, has changed locations. He has no complaints of chest pain this morning. I do not believe further workup is indicated at this time. CTS will sign off the case at this time. Please contact us if further assistance is necessary. The assessment and plan as outlined above was discussed with the patient and/or family members who expressed understanding and agreement. All questions were answered. - Subjective Interval history: The patient remained hemodynamically stable overnight. He has no complaints of chest pain this morning. Oxgyen Flow Rate Oxygen Flow Rate (LPM) 2 Weight 10/15/17 10/16/17 10/17/17 23:59 23:59 23:59 Weight 70 kg 69.8 kg - Physical Examination General: Conversant, No Apparent Distress Neck: No JVD, Normal carotid pulses Cardiac: Reg Rate and Rhythm, Normal S1 and S2, No Murmur Lungs: Normal Breath Sounds, No Wheeze, Rales, Rhonchi Neuro: Alert and responsive, No focal deficits noted Musculoskeletal: No Chest Wall Tenderness Extremities: No Clubbing, No Cyanosis, No Edema - Labs 10/17/17 03:47 10/17/17 03:47 Lab Results, Last 24 hours 10/17/17 10/17/17 03:47 03:47 WBC 6.4 Hgb 11.1 L Hct 35.7 L Plt Count 391 Sodium 133 L Potassium 4.0 Chloride 102 Carbon Dioxide 20 L BUN 51 H Creatinine 1.45 H Glucose 81 Calcium 9.5 Magnesium 2.3 Consult Discharge Plan - Plan Referrals: NONE,PCP [Primary Care Provider] - Jesse Mendoza MD [Non-Partnered Physician] - Omayra Block [Family Provider] -
--- NOTE | 2017-10-17 10:25 | Discharge Summary ---
Date of Encounter: 10/17/17 Time of Encounter: 10:24 - Discharge Medications Home Medications: Atenolol [Tenormin] 25 mg PO DAILY 10/06/17 [History] Bismuth Subsalicylate [PEPTO-BISMOL (262mg/15mL) Susp] 524 mg PO Q8H PRN [History] Brivaracetam [Briviact] 100 mg PO BID 10/06/17 [History] Dextrose 10 % in Water [Dextrose 10%-Water IV Solution] 2,400 ml IV AD 10/06/17 [History] Docusate [Colace] 100 mg PO BID PRN 10/06/17 [History] Gemfibrozil [Lopid] 600 mg PO BIDWM 10/06/17 [History] GuaiFENesin/Dextromethorphan [Tussin Dm Syrup] 10 ml PO Q6H PRN 10/06/17 [ History] Loperamide HCl [Anti-Diarrheal] 2 mg PO PER PKG DI PRN MDD 8 mg 10/06/17 [ History] Mirtazapine [Remeron] 45 mg PO 1800,209910/06/17 [History] Mvi, Adult No.4, Vit K, 1 of 2 [Infuvite Adult Vial 1] 5 ml IV AD 10/06/17 [ History] Mvi, Adult No.4, Vit K, 2 of 2 [Infuvite Adult Vial 2] 5 ml IV AD 10/06/17 [ History] Oxycodone HCl 5 mg PO Q6H PRN 10/06/17 [History] Quetiapine Fumarate [Seroquel] 50 mg PO 1200,2100 10/06/17 [History] Quetiapine Fumarate [Seroquel] 100 mg PO QAM 10/06/17 [History] Ranitidine HCl [Zantac] 150 mg PO BID 10/06/17 [History] Tpn 2,400 ml IV DAILY 10/06/17 [History] lamoTRIgine [Lamictal] 100 mg PO BID 10/06/17 [History] Levofloxacin [Levaquin] 500 mg PO DAILY #5 tablet 10/11/17 [Rx] ALPRAZolam [Xanax 0.25 MG Tablet] 0.25 mg PO TID PRN 10/17/17 [History] Omeprazole [PriLOSEC] 20 mg PO DAILY 10/17/17 [History] Allergies/Adverse Reactions: 3 Allergy/AdvReac Type Severity Reaction Status Date / Time No Known Allergies Allergy Verified 10/06/17 13:55 Date of admission: 10/16/17 06:13 Primary care physician: PCP NONE Consults: 10/16/17 10:28 Consult to Wound Care [CONS] Routine Reason for Consult: excoriation abdomen, ileostomy leakage Call Completed: No 10/16/17 11:40 Consult to Menu Planner [CONS] Routine Reason for SW Consult: Return to ECF Discharging clinician: Dereck Hernandez - Patient Status Disposition: Transfer SNF Condition: Fair - Discharge Instructions Instructions: Chest Pain (DC) Follow Up With: Jesse Mendoza MD [Non-Partnered Physician] - (patient is from an ECF no PCP appointment needed) Hospital course: The pt. is a 31 year old developmentally delayed man who presented in the ER last evening c/o chest and abd pain. His D-dimer was elevated so a CTA-chest was done revealing a small amount of pneumomediastinum. This has been noted previously but with a different distribution. Per records he requires chronic TPN therapy secondary to previous bowel surgeries. Medical records indicate that he had an extensive lysis of adhesions surgery and also had a right partial nephrectomy, small bowel resection with primary anastomosis an ileostomy formation. He had a right renal mass and his partial nephrectomy was performed at [facility]. He had a small bowel injury and requiring small bowel resection and ileostomy with mucous fistula creation. Additionally he's had a lap appendectomy. He takes pills by mouth but relies on TPN for nutrition per records. He was seen last week a [facility] for placement of a port (rt. upper chest wall) by IR to be used for TPN administration. His port was placed earlier this month. He was evaluated by CTS and it was determined that the pneumomediastinum represented old residual air and no intervention was required. He was never in acute distress. He was discharged in stable condition , Assessment and Plan (1) Pneumomediastinum CT surgery eval in a.m for further plan of care (2) Atypical chest pain Likely related to pneumomediastinum (3) Acute kidney injury superimposed on CKD Gentla IV hydration (4) Caloric malnutrition TPN through chest port (5) Ileostomy present Consult wound/ostomy care service (6) Mental retardation Current visit: Yes Status: Acute (7) Hydrocephalus Current visit: No Status: Chronic (8) Spina bifida of lumbar spine Current visit: Yes Status: Acute - Head Head exam: Present: normocephalic Additional comments: He has a crainotomy scar over the right occipital/parietal region. - Eye Eye exam: Present: EOMI, PERRL, conjuntiva pink, sclera anicteric Pupils: Present: PERRL - Neck Neck exam general surgery: Present: supple, trachea midline. Absent: full ROM, lymphadenopathy, tenderness, nuchal rigidity, thyromegaly - Respiratory Respiratory exam: Present: CTAB. Absent: accessory muscle use, rales, rhonchi, wheezes - Cardiovascular Cardiovascular exam: Present: RRR, +S1, +S2. Absent: diastolic murmur, gallop, rubs, systolic murmur - GI/Abdominal GI/Abdominal exam: Present: normal bowel sounds, soft, no peritoneal signs. Absent: distended, firm, guarding, rebound, rigid, tenderness - Extremities Exam Extremities exam: Present: warm, radial pulses palpable and symmetrical. Absent : calf tenderness, cyanotic, pedal edema - Neurological Exam Neurological exam: Present: CN II-XII intact, oriented X3, no focal deficits. Absent: pronater drift, facial droop, speech deficit Pyshch: Normal affect Time spent discussing smoking cessation with patient: more than 10 minutes - Time Spent with Patient Total time spent providing and/or coordinating discharge services: Greater than 30 minutes - Constitutional Vitals: Temp Pulse Resp BP Pulse Ox 98.5 F 113 17 93/64 92 10/17/17 05:00 10/17/17 05:00 10/17/17 05:00 10/17/17 05:00 10/17/17 05:00 General appearance: Present: pleasant, no acute distress. Absent: answers questions appropriately
[2017-10-17 10:51] VITALS: BP 82/62
--- NOTE | 2017-10-17 13:12 | Physician Discharge Referral ---
ExtendedCare Referral Info Provider in Charge after Transfer: PCP Institutional Level of Care: Skilled Prognosis: Good Aware of Diagnosis: Patient Aware of Prognosis: Patient - Transfer Medications Home Medications: Atenolol [Tenormin] 25 mg PO DAILY 10/06/17 [History] Bismuth Subsalicylate [PEPTO-BISMOL (262mg/15mL) Susp] 524 mg PO Q8H PRN [History] Brivaracetam [Briviact] 100 mg PO BID 10/06/17 [History] Dextrose 10 % in Water [Dextrose 10%-Water IV Solution] 2,400 ml IV AD 10/06/17 [History] Docusate [Colace] 100 mg PO BID PRN 10/06/17 [History] Gemfibrozil [Lopid] 600 mg PO BIDWM 10/06/17 [History] GuaiFENesin/Dextromethorphan [Tussin Dm Syrup] 10 ml PO Q6H PRN 10/06/17 [ History] Loperamide HCl [Anti-Diarrheal] 2 mg PO PER PKG DI PRN MDD 8 mg 10/06/17 [ History] Mirtazapine [Remeron] 45 mg PO 1800,2100 10/06/17 [History] Mvi, Adult No.4, Vit K, 1 of 2 [Infuvite Adult Vial 1] 5 ml IV AD 10/06/17 [ History] Mvi, Adult No.4, Vit K, 2 of 2 [Infuvite Adult Vial 2] 5 ml IV AD 10/06/17 [ History] Oxycodone HCl 5 mg PO Q6H PRN 10/06/17 [History] Quetiapine Fumarate [Seroquel] 50 mg PO 1200,2100 10/06/17 [History] Quetiapine Fumarate [Seroquel] 100 mg PO QAM 10/06/17 [History] Ranitidine HCl [Zantac] 150 mg PO BID 10/06/17 [History] Tpn 2,400 ml IV DAILY 10/06/17 [History] lamoTRIgine [Lamictal] 100 mg PO BID 10/06/17 [History] Levofloxacin [Levaquin] 500 mg PO DAILY #5 tablet 10/11/17 [Rx] ALPRAZolam [Xanax 0.25 MG Tablet] 0.25 mg PO TID PRN 10/17/17 [History] Omeprazole [PriLOSEC] 20 mg PO DAILY 10/17/17 [History] Allergies/Adverse Reactions: 3 Allergy/AdvReac Type Severity Reaction Status Date / Time No Known Allergies Allergy Verified 10/06/17 13:55 - Respiratory Orders Smoking Cessation: Smoking cessation has been advised. For more information, call the [place] Tobacco Quit Line at 9-794-QALL-NOW. CERTIFICATION: I certify that the transfer of the above named patient to an Extended Care Facility is necessary for the continuing treatment of the diagnosis listed. The above information is true and accurate reflection of patient's current condition. Confidential - Redisclosure prohibited without a patient's written consent.
--- NOTE | 2017-10-18 17:22 | Electrocardiograph Report ---
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
== END 2017-10-17 14:48 | DRG 200 ==
LOC: EMEROO 02:00 → 2NNU 02:00
PROVIDERS: ADMIT Internal Medicine Hematology & Oncology; ATTEND Internal Medicine

== ENCOUNTER 2017-11-21 07:02 | Inpatient (IN) ==
--- NOTE | 2017-11-21 07:36 | Emergency Department Note ---
Disposition Clinical Impression: Positive blood cultures, Elevated liver enzymes Disposition: Admitted As Inpatient Condition: Good Referrals: Elicia Mcintosh CNP [Primary Care Provider] - Omayra Block [Family Provider] - Forms: ED Satisfaction Letter, Work/School Release General Adult HPI - General Chief complaint: ED General Medical Stated complaint: PICC line placement Time Seen by Provider: 11/21/17 07:17 Source: patient Limitations: no limitations Nursing Notes Reviewed: Yes Vital Signs Reviewed: Yes - History of Present Illness Pain Scale: 8 - Related Data Home Medications Medication Instructions Recorded Confirmed Bismuth Subsalicylate 524 mg PO Q8H PRN 10/06/17 11/21/17 [PEPTO-BISMOL (262mg/15mL) Susp] Brivaracetam [Briviact] 100 mg PO BID 10/06/17 11/21/17 Docusate [Colace] 100 mg PO BID PRN 10/06/17 11/21/17 GuaiFENesin/Dextromethorphan 10 ml PO Q6H PRN 10/06/17 11/21/17 [Tussin Dm Syrup] Loperamide HCl [Anti-Diarrheal] 2 mg PO PER PKG DI PRN MDD 8 mg 10/06/17 Oxycodone HCl 5 mg PO Q6H PRN 10/06/17 11/21/17 Quetiapine Fumarate [Seroquel] 50 mg PO BID 10/06/17 11/21/17 Quetiapine Fumarate [Seroquel] 100 mg PO QAM 10/06/17 11/21/17 Ranitidine HCl [Zantac] 150 mg PO BID 10/06/17 11/21/17 lamoTRIgine [Lamictal] 100 mg PO BID 10/06/17 11/21/17 ALPRAZolam [Xanax 0.25 MG Tablet] 0.25 mg PO TID PRN 10/17/17 11/21/17 Omeprazole [PriLOSEC] 20 mg PO DAILY 10/17/17 11/21/17 Previous Rx's Medication Instructions Recorded Ferrous Sulfate 325 mg PO BIDWM tablet 11/16/17 Fluconazole 400 MG/200 ML 400 mg IVPB DAILY #14 bag 11/16/17 [Diflucan Premix 400 MG/200 ML] dilTIAZem HCl [Cardizem] 60 mg PO QID tablet 11/16/17 Allergies Allergy/AdvReac Type Severity Reaction Status Date / Time No Known Allergies Allergy Verified 10/06/17 13:55 Past Medical History - Past Medical History Medical history: Reports: cancer, GERD, renal disease, seizures, other Surgical history: Reports: other (Partial nephrectomy with FRANCINE and SBR 08/16/17 ; SBR, Cecectomy, Mucus fistula/ileostomy, and SERVICE PLUMBER shunt externalization 08/25/17 ; 09/07/17 SERVICE PLUMBER shunt revision with conversion of SERVICE PLUMBER shunt to [facility] shunt and removal of non-functioning right SERVICE PLUMBER shunt; a-port placement 09/2017) Psychiatric history: Reports: anxiety, depression - Social History Smoking Status: Never smoker Smokeless Tobacco Status: No Alcohol use: Reports: none Drug use: Reports: none Physical Exam - General Limitations: no limitations General appearance: alert, in no apparent distress Course Vital Signs Temperature 98.0 F 11/21/17 07:04 Pulse Rate 91 11/21/17 07:04 Respiratory Rate 16 11/21/17 07:04 Blood Pressure 113/80 11/21/17 07:04 O2 Sat by Pulse Oximetry 97 11/21/17 07:04 Temperature 98.0 F 11/21/17 07:04 Pulse Rate 91 11/21/17 07:04 Respiratory Rate 16 11/21/17 07:04 Blood Pressure 113/80 11/21/17 07:04 O2 Sat by Pulse Oximetry 97 11/21/17 07:04 Oxygen Delivery Oxygen Delivery Room Air Medical Decision Making - MDM Narrative Medical decision making narrative: This documentation is done with the assistance of Dragon dictation. Despite efforts made to ensure accuracy, there may be inaccuracies in oracle engineer or spelling and typographical errors. I examined this patient and my medical decision-making was reviewed with the Resident Physician. I agree with the documented findings, disposition and treatment plan as described except to the extent set forth below. Patient seen and evaluated on arrival with EMS and Dr. Escalera, I agree with his evaluation management plan, supervise care the patient's stay. Patient was sent in because he had a positive Shayla culture through his PICC line. They wanted his PICC line changed out. A history of sepsis he looks great now. Repeat labs will have his PICC line changed over and then we will discuss with infectious disease he may be able to go back to the nursing facility to continue antifungal treatment. 0751 hours: Spoke with the interventional line team. They said at the midline that he has not place now. There are no discuss this with infectious disease to see if they want to put just a peripheral line interaction replace the midline. They will call us back. 0929 hours: Interventional team did place new midline in. They spoke with infectious disease. Labs are looking good. They recommend let him go back home. Were discussed that with caregivers. 11 AM: Patient does have elevation in his LFTs which is new. That could be due to hepatitis pattern that could be due to the antibiotics he is on. Sort agreement to the hospital. He is in agreement with this plan. Hospitalist was accepted patient - Lab Data Result diagrams: 11/21/17 08:08 11/21/17 08:08 Lab Results 11/21/17 11/21/17 Range/Units 08:08 08:08 WBC 5.8 (4.3-11.1) K/mcL RBC 4.48 (4.19-5.50) M/mcL Hgb 12.4 L D (12.9-16.9) g/dL Hct 38.6 (37.5-50.1) % MCV 86.2 (83.0-100.0) fL MCH 27.7 L (28.0-33.3) pg MCHC 32.1 (31.6-35.5) g/dL RDW 17.8 H (11.5-14.5) % Plt Count 361 (140-400) K/mcL MPV 9.7 (9.4-12.4) fL Immature Gran % 0.5 (0-4) % Seg Neutrophils % 44.2 % Lymphocytes % 44.1 % Monocytes % 9.5 % Eosinophils % 1.2 % Basophils % 0.5 % Neutrophils # 2.6 (1.6-8.9) K/mcL Lymphocytes # 2.6 (0.6-4.6) K/mcL Monocytes # 0.6 (0.0-1.3) K/mcL Eosinophils # 0.1 (0.0-0.6) K/mcL Basophils # 0.0 (0.0-0.2) K/mcL Sodium 137 (136-145) mEq/L Potassium 5.3 H (3.5-5.1) mEq/L Chloride 106 (98-107) mEq/L Carbon Dioxide 17 L (23-29) mEq/L BUN 24 H (6-20) mg/dL Creatinine 1.23 (0.70-1.30) mg/dL Est GFR ( Amer) > 60 (> 60) Est GFR (Non-Af Amer) > 60 (> 60) BUN/Creatinine Ratio 20 (6-26) Glucose 108 H (70-105) mg/dL Calculated Osmolality 289 (280-300) Calcium 10.8 H (8.6-10.3) mg/dL Total Bilirubin 0.4 (0.3-1.0) mg/dL AST 95 H (13-39) Units/L ALT 230 H (7-52) Units/L Alkaline Phosphatase 62 (34-104) Units/L Serum Total Protein 8.6 (6.4-8.9) g/dL Albumin 4.1 (3.5-5.7) g/dL Globulin 4.5 H (2.4-3.5) g/dL Albumin/Globulin Ratio 0.9 L (1.1-2.2)
[2017-11-21 08:36] LABS: Basophils % 0.5 %; Eosinophils # 0.1 K/mcL (0.0-0.6); Eosinophils % 1.2 %; Hematocrit 38.6 % (37.5-50.1); Immature Granulocytes % 0.5 % (0-4); Lymphocytes # 2.6 K/mcL (0.6-4.6); Lymphocytes % 44.1 %; Mean Corpuscular HGB Conc 32.1 g/dL (31.6-35.5); Mean Corpuscular Hemoglobin 27.7 pg (28.0-33.3); Mean Corpuscular Volume 86.2 fL (83.0-100.0); Mean Platelet Volume 9.7 fL (9.4-12.4); Monocytes # 0.6 K/mcL (0.0-1.3); Monocytes % 9.5 %; Neutrophils # 2.6 K/mcL (1.6-8.9); Platelet Count 361 K/mcL (140-400); Red Blood Count 4.48 M/mcL (4.19-5.50); Red Cell Distribution Width 17.8 % (11.5-14.5); Segmented Neutrophils % 44.2 %
--- NOTE | 2017-11-21 08:37 | Emergency Department Note ---
Disposition Clinical Impression: Positive blood cultures, Elevated liver enzymes Disposition: Admitted As Inpatient Condition: Good Referrals: Elicia Mcintosh CNP [Primary Care Provider] - Omayra Block [Family Provider] - Forms: ED Satisfaction Letter, Work/School Release General Adult HPI - General Chief complaint: ED General Medical Stated complaint: PICC line placement Time Seen by Provider: 11/21/17 07:17 Source: patient Limitations: no limitations Nursing Notes Reviewed: Yes Vital Signs Reviewed: Yes - History of Present Illness HPI Narrative: Patient with recent admission for sepsis. Patient's cultures grew Shayla. The patient received antifungals as well as a PICC line. Patient was discharged to skilled nursing to continue treatment. Received a call today about positive blood culture. The patient's PICC line was placed before negative blood cultures. This PICC line will need removed. We will touch base with infectious disease in regards to continued plan. Pain Scale: 8 - Related Data Home Medications Medication Instructions Recorded Confirmed Bismuth Subsalicylate 524 mg PO Q8H PRN 10/06/17 11/21/17 [PEPTO-BISMOL (262mg/15mL) Susp] Brivaracetam [Briviact] 100 mg PO BID 10/06/17 11/21/17 Docusate [Colace] 100 mg PO BID PRN 10/06/17 11/21/17 GuaiFENesin/Dextromethorphan 10 ml PO Q6H PRN 10/06/17 11/21/17 [Tussin Dm Syrup] Loperamide HCl [Anti-Diarrheal] 2 mg PO PER PKG DI PRN MDD 8 mg 10/06/17 Oxycodone HCl 5 mg PO Q6H PRN 10/06/17 11/21/17 Quetiapine Fumarate [Seroquel] 50 mg PO BID 10/06/17 11/21/17 Quetiapine Fumarate [Seroquel] 100 mg PO QAM 10/06/17 11/21/17 Ranitidine HCl [Zantac] 150 mg PO BID 10/06/17 11/21/17 lamoTRIgine [Lamictal] 100 mg PO BID 10/06/17 11/21/17 ALPRAZolam [Xanax 0.25 MG Tablet] 0.25 mg PO TID PRN 10/17/17 11/21/17 Omeprazole [PriLOSEC] 20 mg PO DAILY 10/17/17 11/21/17 Previous Rx's Medication Instructions Recorded Ferrous Sulfate 325 mg PO BIDWM tablet 11/16/17 Fluconazole 400 MG/200 ML 400 mg IVPB DAILY #14 bag 11/16/17 [Diflucan Premix 400 MG/200 ML] dilTIAZem HCl [Cardizem] 60 mg PO QID tablet 11/16/17 Allergies Allergy/AdvReac Type Severity Reaction Status Date / Time No Known Allergies Allergy Verified 10/06/17 13:55 All systems ED: reviewed and negative except as stated. Review of Systems: As Per HPI Constitutional: Denies: fever, chills Respiratory: Denies: cough, dyspnea Gastrointestinal: Denies: abdominal pain, nausea, vomiting Genitourinary: Denies: urgency, dysuria Musculoskeletal: Denies: back pain Integumentary: Denies: rash, abrasion, lesions Neurological: Denies: headache Past Medical History - Past Medical History Medical history: Reports: cancer, GERD, renal disease, seizures, other Surgical history: Reports: other (Partial nephrectomy with FRANCINE and SBR 08/16/17 ; SBR, Cecectomy, Mucus fistula/ileostomy, and LINUX KERNEL ENGINEER shunt externalization 08/25/17 ; 09/07/17 LINUX KERNEL ENGINEER shunt revision with conversion of LINUX KERNEL ENGINEER shunt to [facility] shunt and removal of non-functioning right LINUX KERNEL ENGINEER shunt; a-port placement 09/2017) Psychiatric history: Reports: anxiety, depression - Social History Smoking Status: Never smoker Smokeless Tobacco Status: No Alcohol use: Reports: none Drug use: Reports: none Physical Exam General: Well appearing, nontoxic, no acute distress; happy and conversing pleasantly Head: Normocephalic Atraumatic Eyes: PERRL, EOMI ENT: Airway patent, no stridor Neck: supple, no meningismus Chest: Lungs clear to auscultation bilateral Cardiac: Regular rate and rhythm, no murmurs, rubs or gallops Abdomen: soft, nontender, nondistended; no guarding, rebound, or tenderness to percussion Musculoskeletal: Calves symmetric, nontender, no palpable cord Skin: No significant erythema or concern for infection at existing PICC line site No rash, normal skin tone Neuro: Awake alert and oriented to person and place without any deficits or confusion. - General Limitations: no limitations General appearance: alert, in no apparent distress Course - Reevaluation(s) Reevaluation #1: A powerglide has been placed Blood work shows that he has got elevated liver enzymes. This is possibly due to fluconazole. Have discussed with infectious disease. Patient will need continued monitoring. No need to change antibiotics at this time. - Consultations Consultation #1: Discussed with infectious disease. They will consult in regards to further management. Consultation #2: Discussed with hospitalist. . Patient accepted for admission. Vital Signs Temperature 98.0 F 11/21/17 07:04 Pulse Rate 91 11/21/17 07:04 Respiratory Rate 16 11/21/17 07:04 Blood Pressure 113/80 11/21/17 07:04 O2 Sat by Pulse Oximetry 97 11/21/17 07:04 Temperature 98.0 F 11/21/17 07:04 Pulse Rate 91 11/21/17 07:04 Respiratory Rate 16 11/21/17 07:04 Blood Pressure 113/80 11/21/17 07:04 O2 Sat by Pulse Oximetry 97 11/21/17 07:04 Oxygen Delivery Oxygen Delivery Room Air Medical Decision Making - Lab Data Result diagrams: 11/21/17 08:08 11/21/17 08:08 Lab Results 11/21/17 11/21/17 Range/Units 08:08 08:08 WBC 5.8 (4.3-11.1) K/mcL RBC 4.48 (4.19-5.50) M/mcL Hgb 12.4 L D (12.9-16.9) g/dL Hct 38.6 (37.5-50.1) % MCV 86.2 (83.0-100.0) fL MCH 27.7 L (28.0-33.3) pg MCHC 32.1 (31.6-35.5) g/dL RDW 17.8 H (11.5-14.5) % Plt Count 361 (140-400) K/mcL MPV 9.7 (9.4-12.4) fL Immature Gran % 0.5 (0-4) % Seg Neutrophils % 44.2 % Lymphocytes % 44.1 % Monocytes % 9.5 % Eosinophils % 1.2 % Basophils % 0.5 % Neutrophils # 2.6 (1.6-8.9) K/mcL Lymphocytes # 2.6 (0.6-4.6) K/mcL Monocytes # 0.6 (0.0-1.3) K/mcL Eosinophils # 0.1 (0.0-0.6) K/mcL Basophils # 0.0 (0.0-0.2) K/mcL Sodium 137 (136-145) mEq/L Potassium 5.3 H (3.5-5.1) mEq/L Chloride 106 (98-107) mEq/L Carbon Dioxide 17 L (23-29) mEq/L BUN 24 H (6-20) mg/dL Creatinine 1.23 (0.70-1.30) mg/dL Est GFR ( Amer) > 60 (> 60) Est GFR (Non-Af Amer) > 60 (> 60) BUN/Creatinine Ratio 20 (6-26) Glucose 108 H (70-105) mg/dL Calculated Osmolality 289 (280-300) Calcium 10.8 H (8.6-10.3) mg/dL Total Bilirubin 0.4 (0.3-1.0) mg/dL AST 95 H (13-39) Units/L ALT 230 H (7-52) Units/L Alkaline Phosphatase 62 (34-104) Units/L Serum Total Protein 8.6 (6.4-8.9) g/dL Albumin 4.1 (3.5-5.7) g/dL Globulin 4.5 H (2.4-3.5) g/dL Albumin/Globulin Ratio 0.9 L (1.1-2.2)
[2017-11-21 08:39] LABS: Hemoglobin 12.4 g/dL (12.9-16.9)
[2017-11-21 08:45] LABS: Alanine Aminotransferase 230 Units/L (7-52); Albumin 4.1 g/dL (3.5-5.7); Albumin/Globulin Ratio 0.9 (1.1-2.2); Alkaline Phosphatase 62 Units/L (34-104); Aspartate Amino Transferase 95 Units/L (13-39); BUN/Creatinine Ratio 20 (6-26); Bilirubin,Total 0.4 mg/dL (0.3-1.0); Blood Urea Nitrogen 24 mg/dL (6-20); Calcium 10.8 mg/dL (8.6-10.3); Carbon Dioxide 17 mEq/L (23-29); Chloride 106 mEq/L (98-107); Globulin 4.5 g/dL (2.4-3.5); Glucose 108 mg/dL (70-105); Osmolality,Calculated 289 (280-300); Potassium 5.3 mEq/L (3.5-5.1); Sodium 137 mEq/L (136-145); Total Protein 8.6 g/dL (6.4-8.9); eGFR For African Americans > 60 (> 60); eGFR For Non-African Americans > 60 (> 60)
[2017-11-21] MEDS ORDERED: Naloxone 0.4 MG/ML INJ IVP PRN (11:11)
--- NOTE | 2017-11-21 11:11 | Internal Med History&Physical ---
<Joaquin Warren - Last Filed: 11/21/17 14:27> Date of Encounter: 11/21/17 Time of Encounter: 11:30 Assessment and Plan (1) Candidemia Current visit: No Status: Acute Treated for septic shock secondary to fungemia diagnosed on last admission Repeat blood cultures drawn on 11/16/17 positive for Shayla glabrata Currently on day 5 of 14 IV fluconazole 400mg daily Elevated LFT's appreciated in the ED No complaints at this time Plan: - WBC normal, blood cultures taken in ED pending - Consult to ID from ED, appreciate recommendations: Discontinue fluconazole given the patient's elevated liver enzymes. Start Micafungin 100mg IV daily. - Discussed eye exam to r/o endopthalitis with Dr. Montesinos, opthalmologist on- call at 14:30 on 11/21/17. He requested we call Dr. Montesinos's office to schedule an eye exam outpatient prior to discharge: [phone] (2) Positive blood cultures Current visit: Yes Status: Acute Cultures from 11/16/17 resulted positive for Shayla galbrata Plan: see note above - repeat cultures drawn on 11/21/17 (3) Infection due to port-a-cath Current visit: No Status: Suspected A-port removed 11/11/17. Port was managed by wound care and packed Plan: - Packing was removed from port today, no obvious drainage, surrounding erythema/induration or signs of infection - Wound cultures sent Qualifiers: Encounter type: initial encounter Qualified Code(s): T80.219A - Unspecified infection due to central venous catheter, initial encounter (4) Elevated liver enzymes Current visit: Yes Status: Acute AST 95 and ALT 230 Most likely secondary to Fluconazole Plan: - Stop Fluconazole - Start Micafungin 100mg IV daily (5) Ileostomy present Current visit: No Status: Chronic - Continue current diet - Patient has normal kidney function and no significant electrolyte abnormalities (6) Seizures Current visit: No Status: Chronic Patient typically takes Briviact 100mg BID, however pharmacy does not carry this medicationo Plan - 500mg PO BID keppra per records from last visit (7) Spina bifida Current visit: No Status: Chronic History of VA shunt Per ID, if patient infections not resolving, concern for seeding and may need referral to [facility] for neuro/ID Qualifiers: Spinal region: lumbar Presence of hydrocephalus: with hydrocephalus Qualified Code(s): Q05.2 - Lumbar spina bifida with hydrocephalus (8) DVT prophylaxis Current visit: No Status: Acute Lovenox 40 SQ. Internal Medicine - H&P: HPI Chief complaint: candidemia; elevated LFT's Admitted From: Emergency Dept Plans for Post Hospital Care: Transfer Longterm Facility History of present illness: Mr. Benitez is a 31 year old male with a past medical history of MRDD, cerebral palsy, spina bifida, hydrocephalus with VA shunt, ileostomy due to prior abdominal surgeries and fungemia admitted from the emergency department today for positive blood cultures and elevated liver enzymes. Patient was recently discharged from the hospital after admission to the ICU for septic shock in which she required vasopressors. The patient was found to be positive for Shayla glabrata and his blood cultures. He was started on IV antifungals and a power Rio was placed to continue IV antibiotics at his [facility]F. The patient had a repeat blood culture drawn prior to leaving on 11/16/17 which resulted positive for Shayla glabrata. The patient was also noted to have elevated LFTs in the emergency department and was admitted for consult to infectious disease as well as a new PICC line due to positive blood cultures. Initial set of blood cultures ordered in the emergency department. Patient denies any complaints at this time, states he feels fine. No fevers, chills, cough, chest pain, abdominal pain, N/V, or rashes. 10 system review negative except what is stated in the HPI. Past Med Surg Social Fam HX - Past Medical History Medical history: cancer, GERD, renal disease, seizures, other Psychiatric history: anxiety, depression - Past Surgical History Surgical History: other (Partial nephrectomy with FRANCINE and SBR 08/16/17; SBR, Cecectomy, Mucus fistula/ileostomy, and GORE STITCHER shunt externalization 08/25/17; GORE STITCHER shunt revision with conversion of GORE STITCHER shunt to VA shunt and removal of non- functioning right GORE STITCHER shunt; a-port placement 09/2017) - Social History Smoking Status: Never smoker Smokeless Tobacco Status: No Alcohol use: none Drug use: none Internal Medicine - H&P: Meds Bismuth Subsalicylate [PEPTO-BISMOL (262mg/15mL) Susp] 524 mg PO Q8H PRN [History] Brivaracetam [Briviact] 100 mg PO BID 10/06/17 [History] Docusate [Colace] 100 mg PO BID PRN 10/06/17 [History] GuaiFENesin/Dextromethorphan [Tussin Dm Syrup] 10 ml PO Q6H PRN 10/06/17 [ History] Loperamide HCl [Anti-Diarrheal] 2 mg PO PER PKG DI PRN MDD 8 mg 10/06/17 [ History] Oxycodone HCl 5 mg PO Q6H PRN 10/06/17 [History] Quetiapine Fumarate [Seroquel] 50 mg PO BID 10/06/17 [History] Quetiapine Fumarate [Seroquel] 100 mg PO QAM 10/06/17 [History] Ranitidine HCl [Zantac] 150 mg PO BID 10/06/17 [History] lamoTRIgine [Lamictal] 100 mg PO BID 10/06/17 [History] ALPRAZolam [Xanax 0.25 MG Tablet] 0.25 mg PO TID PRN 10/17/17 [History] Omeprazole [PriLOSEC] 20 mg PO DAILY 10/17/17 [History] Ferrous Sulfate 325 mg PO BIDWM tablet 11/16/17 [Rx] Fluconazole 400 MG/200 ML [Diflucan Premix 400 MG/200 ML] 400 mg IVPB DAILY #14 bag 11/16/17 [Rx] dilTIAZem HCl [Cardizem] 60 mg PO QID tablet 11/16/17 [Rx] 3 Allergy/AdvReac Type Severity Reaction Status Date / Time No Known Allergies Allergy Verified 10/06/17 13:55 All Systems PM: A 10-system review of systems was performed and is negative for pertinent findings except as documented above in the HPI. - Constitutional Vitals: Temp Pulse Resp BP Pulse Ox 98.0 F 91 16 113/80 97 11/21/17 07:04 11/21/17 07:04 11/21/17 07:04 11/21/17 07:04 11/21/17 07:04 General appearance: Present: A&O X 3, pleasant, no acute distress, answers questions appropriately Exam: Patient is sitting up in bed listening to music on his cellular device when I enter the room. No apparent distress. Speaks in full sentences. - Head Head exam: Present: atraumatic, normal inspection, normocephalic - Eye Eye exam: Present: normal appearance, PERRL - Neck Neck exam general surgery: Present: normal inspection - Respiratory Respiratory exam: Present: CTAB. Absent: rales, respiratory distress, rhonchi, stridor, wheezes - Cardiovascular Cardiovascular exam: Present: RRR, +S1, +S2 - GI/Abdominal GI/Abdominal exam: Present: normal bowel sounds, soft, no peritoneal signs. Absent: tenderness Additional comments: Stool present in ileostomy bag. - Extremities Exam Extremities exam: Present: normal capillary refill, warm. Absent: pedal edema, tenderness Additional comments: Patient legs are atrophic in appearance which is consistent with his cerebral palsy and chronic disease. - Back Exam Back exam: Present: normal inspection - Neurological Exam Neurological exam: Present: alert, oriented X3, no focal deficits - Psychiatric Psychiatric exam: Present: normal affect, normal mood - Skin Skin exam: Present: intact, normal color. Absent: rash, warm Additional comments: Patient has a chest wall wound from his prior chest port. The packing was removed and there was no apparent drainage. Wound cultures were sent. The patient also has an entry wound from his powerglide that was placed on his RUE that appears non-infectious without induration, erythema or drainage. Large midline abdominal scare well healed and two stoma's present with the right side non-functional and the left side functional. No surrounding erythema or drainage. Appears to be functioning well. Internal Med - H&P Results - Labs CBC & Chem 7: 11/21/17 08:08 11/21/17 08:08 Labs: Short CBC 11/21/17 Range/Units 08:08 WBC 5.8 (4.3-11.1) K/mcL Hgb 12.4 L D (12.9-16.9) g/dL Hct 38.6 (37.5-50.1) % Plt Count 361 (140-400) K/mcL Neutrophils # 2.6 (1.6-8.9) K/mcL BMP 11/21/17 08:08 Sodium 137 Potassium 5.3 H Chloride 106 Carbon Dioxide 17 L BUN 24 H Creatinine 1.23 Glucose 108 H Calcium 10.8 H Liver Function 11/21/17 Range/Units 08:08 Total Bilirubin 0.4 (0.3-1.0) mg/dL AST 95 H (13-39) Units/L ALT 230 H (7-52) Units/L Alkaline Phosphatase 62 (34-104) Units/L Albumin 4.1 (3.5-5.7) g/dL <Demond Garcia - Last Filed: 11/21/17 15:01> Date of Encounter: 11/21/17 Internal Medicine - H&P: HPI History of present illness: Mr. Benitez is a 31 year old male All Systems PM: A 10-system review of systems was performed and is negative for pertinent findings except as documented above in the HPI. - Constitutional Vitals: Temp Pulse Resp BP Pulse Ox 99 F 114 20 110/92 95 11/21/17 11:20 11/21/17 11:20 11/21/17 11:20 11/21/17 11:20 11/21/17 11:20 Internal Med - H&P Results - Labs CBC & Chem 7: 11/21/17 08:08 11/21/17 08:08 Labs: Short CBC 11/21/17 Range/Units 08:08 WBC 5.8 (4.3-11.1) K/mcL Hgb 12.4 L D (12.9-16.9) g/dL Hct 38.6 (37.5-50.1) % Plt Count 361 (140-400) K/mcL Neutrophils # 2.6 (1.6-8.9) K/mcL BMP 11/21/17 08:08 Sodium 137 Potassium 5.3 H Chloride 106 Carbon Dioxide 17 L BUN 24 H Creatinine 1.23 Glucose 108 H Calcium 10.8 H Liver Function 11/21/17 Range/Units 08:08 Total Bilirubin 0.4 (0.3-1.0) mg/dL AST 95 H (13-39) Units/L ALT 230 H (7-52) Units/L Alkaline Phosphatase 62 (34-104) Units/L Albumin 4.1 (3.5-5.7) g/dL - Attending Attestation I examined this patient and my medical decision-making was reviewed with the Resident Physician, Dr Warren. I agree with the documented findings, disposition and treatment plan as described except to the extent set forth below. Patient recently admitted, treated for candidemia. He had right upper chest port placement one week ago. [facility] The on-call physician was informed that the patient had blood culture positive for Shayla from November 16. He was brought back to the hospital. The patient is afebrile. He cannot provide reliable history due to developmental delay. Plan: IV micafungin , ID consult, culture right port site. Repeat blood cultures. Check LFTs in the morning.
[2017-11-21] MEDS ORDERED: Bismuth Subsalicylate 120 ML ORAL SUSPENSION PO PRN (11:29)
[2017-11-21] MEDS ORDERED: ALPRAZolam 0.25 MG TABLET PO PRN (11:29)
--- NOTE | 2017-11-21 12:05 | Infectious Disease Consult ---
Date of Encounter: 11/21/17 Time of Encounter: 12:02 Assessment and Plan (1) Intravenous line infection Status: Acute Assessment and plan: Causative organism: C. parapsilosis. Blood cultures drawn 11/16/17 1/2 sets from the patient's midline are positive for C. parapsilosis per PCR. No peripheral stick blood cultures were drawn at the same time. Likely secondary to seeding from the patient's previous candidemia. Midline has been removed. Peripheral blood cultures drawn x 2 sets today are pending. No blood cultures were drawn from the midline prior to its removal. Qualifiers: Encounter type: initial encounter Qualified Code(s): T82.7XXA - Infection and inflammatory reaction due to other cardiac and vascular devices, implants and grafts, initial encounter (2) Elevated liver enzymes Status: Acute Assessment and plan: Etiology unclear, but could be secondary to IV fluconazole. Hepatitis pattern based on lab values. Abdominal exam benign. Consider additional workup:Liver UTS, GI consult. Repeat LFTs in the AM. Discontinue fluconazole as below. (3) Candidemia Status: Acute Assessment and plan: Causative organism: C. glabrata. Source unclear. The patient did have what appeared to be cellulitis overlying the A-port site. No blood cultures were obtained from the a-port prior to its removal and the catheter tip was not sent for culture. Peripheral blood cultures drawn 11/10/17 were positive 2/2 sets for C. glabrata. Blood cultures drawn from the patient's CVC 11/11/17 1/1 set were negative. Repeat blood cultures drawn 11/14/17 were negative x 1 set. Additional blood cultures drawn from the patient's midline prior to discharge on 11/16/17 are positive 1/2 sets for C. parapsilosis. No peripheral blood cultures were drawn concurrently. The patient has a prior history of Candidemia with the same causative organism in August after his abdominal surgery. A-port removed 11/11/17. Discontinue fluconazole given the patient's elevated liver enzymes. Start Micafungin 100mg IV daily. Duration of treatment depends on the clinical picture, but likely 14 days from the first set of negative blood cultures. Monitor renal and liver function and dose-adjust antibiotics. Baseline LFTs normal. Not sure if this recurrence is seeding of the midline from his Candidemia in October or related to his previous episode in August. Although it is unlikely , the patient is at risk for seeding of his VA shunt. If he has another recurrence, he will likely need to be referred to [facility] ID/neurology for evaluation of seeding of his VA shunt. Needs opthalmology evaluation. Was supposed to have done as an outpatient after discharge, but not sure if this was done. If not, recommend it be done prior to discharge from the hospital. (4) Infection due to port-a-cath Status: Suspected Assessment and plan: Suspected: Concern for infection of the patient's a-port based on overlying cellulitis, candidemia, and recent TPN infusion through the a-port. Causative organism unclear: Shayla vs. bacterial. No blood cultures were obtained from the a-port. Catheter tip was not sent for culture after removal. Continue antibiotics/antifungals as stated above. Status post a-port removal 11/11/17. Wound care per the primary team. Qualifiers: Encounter type: initial encounter Qualified Code(s): T80.219A - Unspecified infection due to central venous catheter, initial encounter (5) CKD (chronic kidney disease) Status: Acute Qualifiers: Chronic kidney disease stage: unspecified stage Qualified Code(s): N18.9 - Chronic kidney disease, unspecified (6) Ileostomy present Status: Chronic (7) Spina bifida Status: Chronic Qualifiers: Spinal region: lumbar Presence of hydrocephalus: with hydrocephalus Qualified Code(s): Q05.2 - Lumbar spina bifida with hydrocephalus Infectious Disease HPI - Data of Consult Patient: known to practice within the last 3 years Consult date: 11/21/17 Primary Care Provider: BECKIE Gifford Family Provider: Marty Provider - Consult Narrative Reason for consult: Candidemia History of present illness: Mr. Benitez is a 31 year old male CC: Past Med Surg Social Fam HX - Past Medical History Attestation: Yes The following information was validated with the patient. 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, Candidemia) Psychiatric history: anxiety, depression - Past Surgical History Surgical History: other (Partial nephrectomy with FRANCINE and SBR 08/16/17; SBR, Cecectomy, Mucus fistula/ileostomy, and ICE CREAM TRUCK DRIVER shunt externalization 08/25/17; ICE CREAM TRUCK DRIVER shunt revision with conversion of ICE CREAM TRUCK DRIVER shunt to VA shunt and removal of non- functioning right ICE CREAM TRUCK DRIVER shunt; a-port placement 09/2017, A-port removal 10/2017) - Social History Smoking Status: Never smoker Smokeless Tobacco Status: No Alcohol use: none Drug use: none Occupational status: disabled Current living situation: F Activity Level: Wheelchair bound Recent Out of Country Travel Within the Last 8 Weeks: No Exposure or Possible Exposure to Illness During Travel: No Infectious Disease-CN:Meds Bismuth Subsalicylate [PEPTO-BISMOL (262mg/15mL) Susp] 524 mg PO Q8H PRN [History] Brivaracetam [Briviact] 100 mg PO BID 10/06/17 [History] Docusate [Colace] 100 mg PO BID PRN 10/06/17 [History] GuaiFENesin/Dextromethorphan [Tussin Dm Syrup] 10 ml PO Q6H PRN 10/06/17 [ History] Loperamide HCl [Anti-Diarrheal] 2 mg PO PER PKG DI PRN MDD 8 mg 10/06/17 [ History] Oxycodone HCl 5 mg PO Q6H PRN 10/06/17 [History] Quetiapine Fumarate [Seroquel] 50 mg PO BID 10/06/17 [History] Quetiapine Fumarate [Seroquel] 100 mg PO QAM 10/06/17 [History] Ranitidine HCl [Zantac] 150 mg PO BID 10/06/17 [History] lamoTRIgine [Lamictal] 100 mg PO BID 10/06/17 [History] ALPRAZolam [Xanax 0.25 MG Tablet] 0.25 mg PO TID PRN 10/17/17 [History] Omeprazole [PriLOSEC] 20 mg PO DAILY 10/17/17 [History] Ferrous Sulfate 325 mg PO BIDWM tablet 11/16/17 [Rx] Fluconazole 400 MG/200 ML [Diflucan Premix 400 MG/200 ML] 400 mg IVPB DAILY #14 bag 11/16/17 [Rx] dilTIAZem HCl [Cardizem] 60 mg PO QID tablet 11/16/17 [Rx] 3 Allergy/AdvReac Type Severity Reaction Status Date / Time No Known Allergies Allergy Verified 10/06/17 13:55 All systems: reviewed and no additional remarkable complaints except as stated Exam - Constitutional Vitals: Temp Pulse Resp BP Pulse Ox 99 F 114 20 110/92 95 11/21/17 11:20 11/21/17 11:20 11/21/17 11:20 11/21/17 11:20 11/21/17 11:20 General appearance: average body habitus, cooperative, no acute distress - Head Head exam: Present: atraumatic, normal inspection, normocephalic - Eye Eye exam: Present: EOMI, normal appearance, PERRL Pupils: Present: normal accommodation - ENT ENT exam: Present: mucous membranes moist - Neck Neck exam: Present: normal inspection - Respiratory Respiratory exam: Present: CTAB. Absent: rales, respiratory distress, rhonchi, wheezes - Cardiovascular Cardiovascular exam: Present: tachycardia. Absent: irregular rhythm - GI/Abdominal GI/Abdominal exam: Present: normal bowel sounds, soft. Absent: distended, tenderness Additional comments: Mucous fistula noted to the RLQ with scant amount of clear mucous noted in the collection bag. Ileostomy noted to the LLQ with beefy red stoma. Small amount of light green liquid stool noted in the collection bag. - Extremities Exam Extremities exam: Absent: joint swelling, pedal edema, tenderness Additional comments: Congenital malformation noted to the BLE. - Neurological Exam Neurological exam: Present: alert, oriented X3. Absent: no focal deficits ( Paralysis noted to the BLE) - Psychiatric Psychiatric exam: Present: normal affect, normal mood - Skin Skin exam: Present: dry, intact, normal color, warm - Additional findings Additional findings: A-port explantation site noted to the right upper chest with steri-strips intact. No redness, erythema, or warmth noted. Infectious Disease CN: Results - Labs CBC & Chem 7: 11/22/17 04:45 11/22/17 04:45 Consult Discharge Plan - Plan Referrals: Elicia Mcintosh, SCRAPPER [Primary Care Provider] - - Attending Attestation I examined this patient and my medical decision-making was reviewed with the Resident Physician. I agree with the documented findings, disposition and treatment plan as described except to the extent set forth below. This is an addendum to original report dictated by Vivi Ortega CNP. Please refer to Arianna vo for full detail. Briefly patient is a 32-year-old gentleman with extensive past medical history mentioned below who was seen by us last week in the hospital for candidemia with Shayla parapsilosis. Patient apparently had TPN infiltrate into his a port on the right chest and believe that was the source. Patient also had a VA shunt. The plan was to treat the patient with 2 weeks worth of IV antibiotics and observe after treatment. If the patient becomes candidemia again we were considering referring him back to his neurosurgeon for evaluation of the VA shunt and maybe removal. Apparently patient had another positive culture obtained from a central line. At that time patient had an IJ and a PICC line. We were sure where this culture came back from. Either way the patient was called back to the emergency room where the midline in the right upper extremity was removed. Blood work revealed that the patient also had elevated LFTs. He was concerned that the patient having reaction to Diflucan. We were consulted to evaluate the patient and make further recommendations. Patient today up in bed appears comfortable no acute distress does not appear toxic. Pleasant with no complaints and review of systems unremarkable. Patient denies any abdominal pain nausea vomiting abdominal fullness. Patient is not jaundiced. At this point after long discussion with the emergency department physician the patient will be admitted for observation. Patients Diflucan was DCd and patient was started on micafungin. Repeat blood cultures were obtained. We will do a literature search to see if the patient will continue having worsening elevated LFTs might consider getting an ultrasound of the abdomen. The thing that has happened to is the patients diet has been advanced to full diet from liquid diet previously.
[2017-11-21] MEDS: Micafungin 100 MG in 0.9 % Sodium Chloride Mini Bag 100 ML IVPB SCH (14:13)
[2017-11-21] MEDS: dilTIAZem HCl 60 MG TABLET PO SCH ×3 (14:42→21:38)
[2017-11-21] MEDS: levETIRAcetam 250 MG TABLET PO SCH (17:57)
[2017-11-21] MEDS: lamoTRIgine 100 MG TABLET PO SCH (21:38)
[2017-11-21] MEDS: Famotidine 20 MG TABLET PO SCH (21:38)
[2017-11-22] MEDS ORDERED: 0.9 % Sodium Chloride 500 ML IVC ONE (00:19)
[2017-11-22 05:28] LABS: Eosinophils # 0.1 K/mcL (0.0-0.6); Eosinophils % 1.5 %; Hematocrit 34.6 % (37.5-50.1); Immature Granulocytes % 0.2 % (0-4); Lymphocytes # 2.1 K/mcL (0.6-4.6); Lymphocytes % 52.6 %; Mean Corpuscular HGB Conc 31.2 g/dL (31.6-35.5); Mean Corpuscular Hemoglobin 27.6 pg (28.0-33.3); Mean Corpuscular Volume 88.3 fL (83.0-100.0); Mean Platelet Volume 9.8 fL (9.4-12.4); Monocytes # 0.4 K/mcL (0.0-1.3); Monocytes % 8.9 %; Neutrophils # 1.4 K/mcL (1.6-8.9); Platelet Count 335 K/mcL (140-400); Red Blood Count 3.92 M/mcL (4.19-5.50); Red Cell Distribution Width 17.5 % (11.5-14.5); Segmented Neutrophils % 35.8 %
[2017-11-22 05:31] LABS: Alanine Aminotransferase 280 Units/L (7-52); Albumin 3.6 g/dL (3.5-5.7); Albumin/Globulin Ratio 0.9 (1.1-2.2); Alkaline Phosphatase 60 Units/L (34-104); Aspartate Amino Transferase 136 Units/L (13-39); BUN/Creatinine Ratio 20 (6-26); Bilirubin,Total 0.5 mg/dL (0.3-1.0); Blood Urea Nitrogen 23 mg/dL (6-20); Calcium 10.5 mg/dL (8.6-10.3); Carbon Dioxide 19 mEq/L (23-29); Chloride 109 mEq/L (98-107); Globulin 3.9 g/dL (2.4-3.5); Glucose 85 mg/dL (70-105); Magnesium 1.9 mg/dL (1.6-2.6); Osmolality,Calculated 289 (280-300); Potassium 4.2 mEq/L (3.5-5.1); Sodium 138 mEq/L (136-145); Total Protein 7.5 g/dL (6.4-8.9); eGFR For African Americans > 60 (> 60); eGFR For Non-African Americans > 60 (> 60)
[2017-11-22 05:32] LABS: Hemoglobin 10.8 g/dL (12.9-16.9)
[2017-11-22] MEDS: levETIRAcetam 250 MG TABLET PO SCH ×2 (06:15→18:08)
[2017-11-22] MEDS: *HR* Enoxaparin 40 MG/0.4 ML SYRINGE SQ SCH (06:15)
[2017-11-22] MEDS: lamoTRIgine 100 MG TABLET PO SCH ×2 (08:04→21:00)
[2017-11-22] MEDS: dilTIAZem HCl 60 MG TABLET PO SCH ×4 (08:05→21:00)
[2017-11-22] MEDS: Famotidine 20 MG TABLET PO SCH ×2 (08:05→21:00)
[2017-11-22] MEDS: Micafungin 100 MG in 0.9 % Sodium Chloride Mini Bag 100 ML IVPB SCH (08:05)
--- NOTE | 2017-11-22 11:23 | Infectious Disease Progress No ---
Date of Encounter: 11/22/17 Time of Encounter: 11:20 - Assessment and Plan (1) Intravenous line infection Current Visit: Yes Status: Acute Causative organism: C. parapsilosis. Blood cultures drawn 11/16/17 1/2 sets from the patient's midline are positive for C. parapsilosis per PCR. No peripheral stick blood cultures were drawn at the same time. Likely secondary to seeding from the patient's previous candidemia. Midline has been removed. Peripheral blood cultures drawn x 2 sets 11/21/17 are pending. No blood cultures were drawn from the midline prior to its removal. Qualifiers: Encounter type: initial encounter Qualified Code(s): T82.7XXA - Infection and inflammatory reaction due to other cardiac and vascular devices, implants and grafts, initial encounter (2) Elevated liver enzymes Current Visit: Yes Status: Acute Etiology unclear, but could be secondary to IV fluconazole. Hepatitis pattern based on lab values. Abdominal exam benign. Liver enzymes worse this morning despite discontinuing fluconazole. Consider additional workup:Liver UTS, GI consult. Repeat LFTs in the AM. (3) Candidemia Current Visit: No Status: Acute Causative organism: C. glabrata. Source likely the patient's a-port, which was removed. The patient did have what appeared to be cellulitis overlying the A-port site. No blood cultures were obtained from the a-port prior to its removal and the catheter tip was not sent for culture. Peripheral blood cultures drawn 11/10/17 were positive 2/2 sets for C. glabrata. Blood cultures drawn from the patient's CVC 11/11/17 1/1 set were negative. Repeat blood cultures drawn 11/14/17 were negative x 1 set. Additional blood cultures drawn from the patient's midline or CVC prior to discharge on 11/16/17 are positive 1/2 sets for C. parapsilosis. No peripheral blood cultures were drawn concurrently. The patient has a prior history of Candidemia with the same causative organism in August after his abdominal surgery. A-port removed 11/11/17. Discontinue fluconazole given the patient's elevated liver enzymes. Continue Micafungin 100mg IV daily. Duration of treatment depends on the clinical picture, but likely 14 days from the first set of negative blood cultures. Monitor renal and liver function and dose-adjust antibiotics. Baseline LFTs were normal prior to discharge, but are now elevated. See additional recommendations above. Not sure if this recurrence is seeding of the midline/CVC from his Candidemia in October or related to his previous episode in August. Although it is unlikely, the patient is at risk for seeding of his VA shunt. If he has another recurrence, he will likely need to be referred to [facility]/neurology for evaluation of seeding of his VA shunt. Needs opthalmology evaluation. Was supposed to have done as an outpatient after discharge, but not sure if this was done. If not, recommend it be done prior to discharge from the hospital. (4) Infection due to port-a-cath Current Visit: No Status: Suspected Suspected: Concern for infection of the patient's a-port based on overlying cellulitis, candidemia, and recent TPN infusion through the a-port. Causative organism unclear: Shayla vs. bacterial vs. both. No blood cultures were obtained from the a-port. Catheter tip was not sent for culture after removal. Continue antibiotics/antifungals as stated above. Status post a-port removal 11/11/17. Wound care per the primary team. Qualifiers: Encounter type: initial encounter Qualified Code(s): T80.219A - Unspecified infection due to central venous catheter, initial encounter (5) CKD (chronic kidney disease) Current Visit: No Status: Acute Monitor renal function and dose-adjust antifungals. Qualifiers: Chronic kidney disease stage: unspecified stage Qualified Code(s): N18.9 - Chronic kidney disease, unspecified (6) Ileostomy present Current Visit: No Status: Chronic Ostomy nurse consult to assist with management. (7) Spina bifida Current Visit: No Status: Chronic Qualifiers: Spinal region: lumbar Presence of hydrocephalus: with hydrocephalus Qualified Code(s): Q05.2 - Lumbar spina bifida with hydrocephalus - Subjective Interval history: Patient seen and examined. No acute events noted overnight. Patient sitting up in bed. Reports pain at the a-port explantation site in his chest. Denies shortness of breath or cough. Denies nausea, vomiting, or diarrhea. Denies abdominal pain. Reports that his colostomy bag is leaking. States he has a good appetite and ate breakfast this morning. Complains of pain in his right foot second toe. Infect Dis PN-Objective Data - Labs CBC & Chem 7: 11/22/17 04:45 11/22/17 04:45 Labs: Laboratory Results - last 24 hr 11/21/17 11/22/17 11/22/17 20:26 04:45 04:45 WBC 4.0 L RBC 3.92 L Hgb 10.8 L D Hct 34.6 L MCV 88.3 MCH 27.6 L MCHC 31.2 L RDW 17.5 H Plt Count 335 MPV 9.8 Immature Gran % 0.2 Seg Neutrophils % 35.8 Lymphocytes % 52.6 Monocytes % 8.9 Eosinophils % 1.5 Basophils % 1.0 Neutrophils # 1.4 L Lymphocytes # 2.1 Monocytes # 0.4 Eosinophils # 0.1 Basophils # 0.0 Sodium 138 Potassium 4.2 Chloride 109 H Carbon Dioxide 19 L BUN 23 H Creatinine 1.16 Est GFR ( Amer) > 60 Est GFR (Non-Af Amer) > 60 BUN/Creatinine Ratio 20 Glucose 85 Calculated Osmolality 289 Calcium 10.5 H Magnesium 1.9 Total Bilirubin 0.5 AST 136 H ALT 280 H Alkaline Phosphatase 60 Troponin I < 0.03 Serum Total Protein 7.5 Albumin 3.6 Globulin 3.9 H Albumin/Globulin Ratio 0.9 L Exam - Constitutional Vitals: Temp Pulse Resp BP Pulse Ox 98.2 F 109 18 90/59 91 11/22/17 07:25 11/22/17 07:25 11/22/17 07:25 11/22/17 07:25 11/22/17 08:00 General appearance: average body habitus, cooperative, no acute distress - Head Head exam: Present: atraumatic, normal inspection, normocephalic - Eye Eye exam: Present: EOMI, normal appearance, PERRL Pupils: Present: normal accommodation - ENT ENT exam: Present: mucous membranes moist - Neck Neck exam: Present: normal inspection - Respiratory Respiratory exam: Present: CTAB. Absent: rales, respiratory distress, rhonchi, wheezes Additional comments: Right upper chest dressing C/D/I. - Cardiovascular Cardiovascular exam: Present: +S1, +S2, tachycardia. Absent: irregular rhythm - GI/Abdominal GI/Abdominal exam: Present: normal bowel sounds, soft. Absent: distended, tenderness Additional comments: Ileostomy noted to the LLQ with small amount of dark green stool noted in the collection bag with leaking noted. Mucous fistula noted to the RLQ with small amount of clear mucous noted in the collection bag. Midline abdominal incision well-healed without redness, warmth, or drainage. - Extremities Exam Extremities exam: Absent: joint swelling, normal inspection (Congenital malformation noted to the BLE), tenderness Additional comments: Right foot second toe with missing toenail. No erythema or drainage or open sore noted. - Neurological Exam Neurological exam: Present: alert, oriented X3. Absent: no focal deficits ( Paralysis noted to the BLE.) - Psychiatric Psychiatric exam: Present: normal affect, normal mood - Skin Skin exam: Present: dry, intact, normal color, warm Consult Discharge Plan - Plan Referrals: Elicia Mcintosh, REAL ESTATE SALES MANAGER [Primary Care Provider] - - Attending Attestation I examined this patient and my medical decision-making was reviewed with the Resident Physician. I agree with the documented findings, disposition and treatment plan as described except to the extent set forth below. I did some literature review, apparently he might take up to 2-3 months for the LFTs to normalize. Some articles recommend treating through the elevated LFTs. He probably needs 8 more days of micafungin. We still have not had ophthalmology to evaluate and they said they will evaluated as an outpatient
--- NOTE | 2017-11-22 16:49 | Internal Med Progress Note ---
Date of Encounter: 11/22/17 Time of Encounter: 11:00 - Assessment and plan (1) Intravenous line infection Current Visit: Yes Status: Acute Assessment and plan: Appreciate ID recommendations. Continue with micafungin. Fluconazole was stopped. Follow-up blood cultures. Port-A-Cath was discontinued. No indwelling catheters present at this time. Qualifiers: Encounter type: initial encounter Qualified Code(s): T82.7XXA - Infection and inflammatory reaction due to other cardiac and vascular devices, implants and grafts, initial encounter (2) Candidemia Current Visit: No Status: Acute Assessment and plan: Continue with micafungin. Monitor temperature curve and WBC trend. Follow-up cultures. We will request ophthalmology evaluation for possible endophthalmitis per infectious disease service recommendations. (3) DVT prophylaxis Current Visit: No Status: Acute Assessment and plan: We will use subcutaneous Lovenox. (4) Hydrocephalus Current Visit: No Status: Chronic (5) Elevated liver enzymes Current Visit: Yes Status: Acute Assessment and plan: We will check liver ultrasound. Viral hepatitis panel. Check LFTs in the morning. - Subjective Interval history: Patient denies abdominal pain and fever. Denies cough. He was admitted to the hospital yesterday for reevaluation of candidemia. He remains asymptomatic. - Constitutional Vitals: Temp Pulse Resp BP Pulse Ox 98.7 F 108 16 107/75 95 11/22/17 15:37 11/22/17 15:37 11/22/17 15:37 11/22/17 15:37 11/22/17 15:37 General appearance: Present: A&O X 3, pleasant, no acute distress, answers questions appropriately - Eye Eye exam: Present: PERRL, conjuntiva pink, sclera anicteric Pupils: Present: PERRL - Respiratory Respiratory exam: Present: CTAB. Absent: accessory muscle use, rales, rhonchi, wheezes - Cardiovascular Cardiovascular exam: Present: RRR, +S1, +S2. Absent: diastolic murmur, gallop, rubs, systolic murmur - GI/Abdominal GI/Abdominal exam: Present: normal bowel sounds, soft, no peritoneal signs. Absent: distended, tenderness Internal Medicine: Result - Labs CBC & Chem 7: 11/22/17 04:45 11/22/17 04:45 Labs: Short CBC 11/22/17 Range/Units 04:45 WBC 4.0 L (4.3-11.1) K/mcL Hgb 10.8 L D (12.9-16.9) g/dL Hct 34.6 L (37.5-50.1) % Plt Count 335 (140-400) K/mcL Neutrophils # 1.4 L (1.6-8.9) K/mcL BMP 11/22/17 04:45 Sodium 138 Potassium 4.2 Chloride 109 H Carbon Dioxide 19 L BUN 23 H Creatinine 1.16 Glucose 85 Calcium 10.5 H Cardiac Enzymes 11/21/17 Range/Units 20:26 Troponin I < 0.03 (< 0.04) ng/mL Liver Function 11/22/17 Range/Units 04:45 Total Bilirubin 0.5 (0.3-1.0) mg/dL AST 136 H (13-39) Units/L ALT 280 H (7-52) Units/L Alkaline Phosphatase 60 (34-104) Units/L Albumin 3.6 (3.5-5.7) g/dL Consult Discharge Plan - Plan Referrals: Elicia Mcintosh, DEMI CHEF [Primary Care Provider] -
--- NOTE | 2017-11-22 17:34 | Electrocardiograph Report ---
[address] [place], [place] [address] Test Date: 2017-11-21 Pat Name: Adán Benitez Department: 113 Room: 3B12 Gender: M Budget Manager: TMMichel : 1985 Requested By: Flakito Moscoso Order Number: [id number] Reading MD: Opal Denson Measurements Intervals [place] Rate: 113 P: 24 [place]: 150 QRS: 147 QRSD: 82 T: 21 QT: 302 QTc: 369 Interpretive Statements SINUS TACHYCARDIA INDETERMINATE AXIS PATTERN CONSISTENT WITH PULMONARY DISEASE PROBABLE INFERIOR MYOCARDIAL INFARCTION, OF INDETERMINATE AGE Electronically Signed On 11-22-2017 17:32:41 EST by Opal Denson
--- NOTE | 2017-11-22 20:33 | Internal Medicine Consult Note ---
Date of Encounter: 11/22/17 Time of Encounter: 19:54 Internal Medicine - CN: HPI - Data of Consult Requesting Physician: Demond Garcia MD Patient has candidemia. Patient reports good vision in good ocular comfort. Examination reveals visual acuity without correction of approximately 20/30 right eye and 20/30 left eye (near equivalent Snellen). External examination revealed normal eyelids in both eyes. Extraocular motility testing revealed full excursion of both eyes to all cardinal positions of gaze. Pupils were equal round and reactive to light with no relative afferent pupillary defects noted. Confrontation visual vargas (peripheral limits) were full and normal in both eyes, although the examination was suboptimal. The intraocular pressures were approximately 14 mmHg in the right eye and 13 mmHg in the left eye. Slit-lamp examination revealed normal eyelids in both eyes. The conjunctiva was normal in both eyes. The cornea was clear in both eyes. The anterior chamber was grade 2 in depth and clear in both eyes. The iris was normal in both eyes. Both eyes were dilated with 1% tropicamide and 2-1/2% phenylephrine drops. Following dilation of the pupils further examination revealed a clear lens and a clear vitreous in both eyes. The optic nerve heads were normal with a cup to disc ratio of approximately 0.35 in both eyes. The macula, posterior pole, retinal vessels and retinal periphery were normal in both eyes as far as I could see. (The fundus examination was performed with the binocular indirect ophthalmoscope wwith a 20D condensing lens as the patient was unable to sit up for further slit lamp examination at this time.) Impression: 1. Candidemia 2. Normal eye examination. (No evidence of endophthalmitis was appreciated.) Recommendation: Please contact me if patient's eye or visual status changes. I would be happy to see him again if indicated. - Consult Narrative History of present illness: Mr. 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 !, Hydrocephalus s/p bilateral BOAT CAPTAIN shunt placement 20 years ago, Candidemia) Psychiatric history: anxiety, depression - Past Surgical History Surgical History: other (Partial nephrectomy with FRANCINE and SBR 08/16/17; SBR, Cecectomy, Mucus fistula/ileostomy, and BOAT CAPTAIN shunt externalization 08/25/17; BOAT CAPTAIN shunt revision with conversion of BOAT CAPTAIN shunt to [facility] shunt and removal of non- functioning right BOAT CAPTAIN shunt; a-port placement 09/2017, A-port removal 10/2017) - Social History Smoking Status: Never smoker Smokeless Tobacco Status: No Alcohol use: none Drug use: none - Family History Mother History Unknown: Yes Father Living Status: Still Living Hx Family Endocrine Disorder: Yes (DM) Internal Medicine - CN: Meds Bismuth Subsalicylate [PEPTO-BISMOL (262mg/15mL) Susp] 524 mg PO Q8H PRN [History] Brivaracetam [Briviact] 100 mg PO BID 10/06/17 [History] Docusate [Colace] 100 mg PO BID PRN 10/06/17 [History] GuaiFENesin/Dextromethorphan [Tussin Dm Syrup] 10 ml PO Q6H PRN 10/06/17 [ History] Loperamide HCl [Anti-Diarrheal] 2 mg PO PER PKG DI PRN MDD 8 mg 10/06/17 [ History] Oxycodone HCl 5 mg PO Q6H PRN 10/06/17 [History] Quetiapine Fumarate [Seroquel] 50 mg PO BID 10/06/17 [History] Quetiapine Fumarate [Seroquel] 100 mg PO QAM 10/06/17 [History] Ranitidine HCl [Zantac] 150 mg PO BID 10/06/17 [History] lamoTRIgine [Lamictal] 100 mg PO BID 10/06/17 [History] ALPRAZolam [Xanax 0.25 MG Tablet] 0.25 mg PO TID PRN 10/17/17 [History] Omeprazole [PriLOSEC] 20 mg PO DAILY 10/17/17 [History] Ferrous Sulfate 325 mg PO BIDWM tablet 11/16/17 [Rx] Fluconazole 400 MG/200 ML [Diflucan Premix 400 MG/200 ML] 400 mg IVPB DAILY #14 bag 11/16/17 [Rx] dilTIAZem HCl [Cardizem] 60 mg PO QID tablet 11/16/17 [Rx] 3 Allergy/AdvReac Type Severity Reaction Status Date / Time No Known Allergies Allergy Verified 10/06/17 13:55 Internal Medicine - CN: Exam - Constitutional Vitals: Temp Pulse Resp BP Pulse Ox 97.8 F 109 16 99/67 94 11/22/17 18:22 11/22/17 18:22 11/22/17 18:22 11/22/17 18:22 11/22/17 18:22 Internal Medicine - CN: Reslt - Labs CBC & Chem 7: 11/22/17 04:45 11/22/17 04:45 Labs: Short CBC 11/22/17 Range/Units 04:45 WBC 4.0 L (4.3-11.1) K/mcL Hgb 10.8 L D (12.9-16.9) g/dL Hct 34.6 L (37.5-50.1) % Plt Count 335 (140-400) K/mcL Neutrophils # 1.4 L (1.6-8.9) K/mcL BMP 11/22/17 04:45 Sodium 138 Potassium 4.2 Chloride 109 H Carbon Dioxide 19 L BUN 23 H Creatinine 1.16 Glucose 85 Calcium 10.5 H Cardiac Enzymes 11/21/17 Range/Units 20:26 Troponin I < 0.03 (< 0.04) ng/mL Liver Function 11/22/17 Range/Units 04:45 Total Bilirubin 0.5 (0.3-1.0) mg/dL AST 136 H (13-39) Units/L ALT 280 H (7-52) Units/L Alkaline Phosphatase 60 (34-104) Units/L Albumin 3.6 (3.5-5.7) g/dL Consult Discharge Plan - Plan Referrals: Elicia Mcintosh, CUSTOMER CARE REPRESENTATIVE [Primary Care Provider] -
[2017-11-23 02:24] LABS: Hepatitis A Antibody IgM Nonreactive (Nonreactive); Hepatitis B Core IgM Nonreactive (Nonreactive); Hepatitis B Surface Antigen Nonreactive (Nonreactive); Hepatitis C Virus Antibody Nonreactive (Nonreactive)
[2017-11-23 05:15] LABS: Alanine Aminotransferase 367 Units/L (7-52); Albumin 3.9 g/dL (3.5-5.7); Alkaline Phosphatase 66 Units/L (34-104); Aspartate Amino Transferase 163 Units/L (13-39); BUN/Creatinine Ratio 17 (6-26); Bilirubin,Total 0.3 mg/dL (0.3-1.0); Blood Urea Nitrogen 20 mg/dL (6-20); Calcium 10.8 mg/dL (8.6-10.3); Carbon Dioxide 18 mEq/L (23-29); Chloride 107 mEq/L (98-107); Globulin 3.9 g/dL (2.4-3.5); Glucose 103 mg/dL (70-105); Osmolality,Calculated 289 (280-300); Potassium 4.1 mEq/L (3.5-5.1); Sodium 138 mEq/L (136-145); Total Protein 7.8 g/dL (6.4-8.9); eGFR For African Americans > 60 (> 60); eGFR For Non-African Americans > 60 (> 60)
[2017-11-23] MEDS: *HR* Enoxaparin 40 MG/0.4 ML SYRINGE SQ SCH (05:52)
[2017-11-23] MEDS: levETIRAcetam 250 MG TABLET PO SCH ×2 (05:52→16:50)
[2017-11-23 06:36] LABS: Eosinophils # 0.1 K/mcL (0.0-0.6); Eosinophils % 1.8 %; Hematocrit 37.1 % (37.5-50.1); Hemoglobin 11.7 g/dL (12.9-16.9); Lymphocytes # 1.9 K/mcL (0.6-4.6); Lymphocytes % 48.6 %; Mean Corpuscular HGB Conc 31.5 g/dL (31.6-35.5); Mean Corpuscular Hemoglobin 27.5 pg (28.0-33.3); Mean Corpuscular Volume 87.1 fL (83.0-100.0); Mean Platelet Volume 10.1 fL (9.4-12.4); Monocytes # 0.4 K/mcL (0.0-1.3); Monocytes % 9.4 %; Neutrophils # 1.5 K/mcL (1.6-8.9); Platelet Count 320 K/mcL (140-400); Red Blood Count 4.26 M/mcL (4.19-5.50); Red Cell Distribution Width 17.2 % (11.5-14.5); Segmented Neutrophils % 39.2 %
[2017-11-23] MEDS: lamoTRIgine 100 MG TABLET PO SCH ×2 (08:31→20:36)
[2017-11-23] MEDS: Micafungin 100 MG in 0.9 % Sodium Chloride Mini Bag 100 ML IVPB SCH (08:31)
[2017-11-23] MEDS: Famotidine 20 MG TABLET PO SCH ×2 (08:31→20:36)
[2017-11-23] MEDS: dilTIAZem HCl 60 MG TABLET PO SCH ×4 (08:31→20:36)
--- NOTE | 2017-11-23 13:48 | Infectious Disease Progress No ---
Date of Encounter: 11/23/17 Time of Encounter: 13:45 - Assessment and Plan (1) Intravenous line infection Current Visit: Yes Status: Acute Causative organism: C. parapsilosis. Blood cultures drawn 11/16/17 1/2 sets from the patient's midline are positive for C. parapsilosis per PCR. No peripheral stick blood cultures were drawn at the same time. Likely secondary to seeding from the patient's previous candidemia. Midline has been removed. Peripheral blood cultures drawn x 2 sets 11/21/17 are NGTD. No blood cultures were drawn from the midline prior to its removal. Qualifiers: Encounter type: initial encounter Qualified Code(s): T82.7XXA - Infection and inflammatory reaction due to other cardiac and vascular devices, implants and grafts, initial encounter (2) Elevated liver enzymes Current Visit: Yes Status: Acute Etiology unclear, but could be secondary to IV fluconazole. Hepatitis pattern based on lab values. Abdominal exam benign. Liver enzymes worse this morning despite discontinuing fluconazole. Liver UTS negative. Hepatitis profile negative. Consider GI to evaluate. If secondary to fluconazole, could take several weeks for levels to get back to normal. Repeat LFTs in the AM. (3) Candidemia Current Visit: No Status: Acute Causative organism: C. glabrata. Source likely the patient's a-port, which was removed. The patient did have what appeared to be cellulitis overlying the A-port site. No blood cultures were obtained from the a-port prior to its removal and the catheter tip was not sent for culture. Peripheral blood cultures drawn 11/10/17 were positive 2/2 sets for C. glabrata. Blood cultures drawn from the patient's CVC 11/11/17 1/1 set were negative. Repeat blood cultures drawn 11/14/17 were negative x 1 set. Additional blood cultures drawn from the patient's midline or CVC prior to discharge on 11/16/17 are positive 1/2 sets for C. parapsilosis. No peripheral blood cultures were drawn concurrently. Peripheral blood cultures drawn 11/21/17 are NGTD x 2 sets. The patient has a prior history of Candidemia with the same causative organism in August after his abdominal surgery. A-port removed 11/11/17. Discontinue fluconazole given the patient's elevated liver enzymes. Continue Micafungin 100mg IV daily. Duration of treatment depends on the clinical picture, but likely 14 days from the first set of negative blood cultures. Monitor renal and liver function and dose-adjust antibiotics. Baseline LFTs were normal prior to discharge, but are now elevated. See additional recommendations above. Not sure if this recurrence is seeding of the midline/CVC from his Candidemia in October or related to his previous episode in August. Although it is unlikely, the patient is at risk for seeding of his VA shunt. If he has another recurrence, he will likely need to be referred to [facility]urology for evaluation of seeding of his [facility] shunt. Opthalmology evaluation noted and appreciated. No endopthalmitis noted per Dr. Montesinos. (4) Infection due to port-a-cath Current Visit: No Status: Suspected Suspected: Concern for infection of the patient's a-port based on overlying cellulitis, candidemia, and recent TPN infusion through the a-port. Causative organism unclear: Shayla vs. bacterial vs. both. No blood cultures were obtained from the a-port. Catheter tip was not sent for culture after removal. Continue antibiotics/antifungals as stated above. Status post a-port removal 11/11/17. Wound care per the primary team. Qualifiers: Encounter type: initial encounter Qualified Code(s): T80.219A - Unspecified infection due to central venous catheter, initial encounter (5) CKD (chronic kidney disease) Current Visit: No Status: Acute Monitor renal function and dose-adjust antifungals. Qualifiers: Chronic kidney disease stage: unspecified stage Qualified Code(s): N18.9 - Chronic kidney disease, unspecified (6) Ileostomy present Current Visit: No Status: Chronic Ostomy nurse consult to assist with management. (7) Spina bifida Current Visit: No Status: Chronic Qualifiers: Spinal region: lumbar Presence of hydrocephalus: with hydrocephalus Qualified Code(s): Q05.2 - Lumbar spina bifida with hydrocephalus - Subjective Interval history: Patient seen and examined. No acute events noted overnight. Patient sleeping in bed, awakens easily. States he is tired and just wants to be left alone. Denies chest pain, shortness of breath or cough. Denies nausea, vomiting, or diarrhea. Denies abdominal pain. States his colostomy bag is intact. States he has not eaten breakfast yet this morning. States he is hungry. Denies pain today. Infect Dis PN-Objective Data - Labs CBC & Chem 7: 11/23/17 06:06 11/23/17 04:35 Labs: Laboratory Results - last 24 hr 11/22/17 11/23/17 11/23/17 20:50 04:35 05:21 WBC RBC Hgb Hct MCV MCH MCHC RDW Plt Count MPV Immature Gran % Seg Neutrophils % Lymphocytes % Monocytes % Eosinophils % Basophils % Neutrophils # Lymphocytes # Monocytes # Eosinophils # Basophils # Sodium 138 Potassium 4.1 Chloride 107 Carbon Dioxide 18 L BUN 20 Creatinine 1.19 Est GFR ( Amer) > 60 Est GFR (Non-Af Amer) > 60 BUN/Creatinine Ratio 17 Glucose 103 Calculated Osmolality 289 Calcium 10.8 H Total Bilirubin 0.3 AST 163 H ALT 367 H Alkaline Phosphatase 66 Serum Total Protein 7.8 Albumin 3.9 Globulin 3.9 H Albumin/Globulin Ratio 1.0 L Hepatitis A IgM Ab Nonreactive Hep Bs Antigen Nonreactive Hep B Core IgM Ab Nonreactive Hepatitis C Ab Screen Nonreactive Specimen Rejected Clotted 11/23/17 06:06 WBC 3.8 L RBC 4.26 Hgb 11.7 L Hct 37.1 L MCV 87.1 MCH 27.5 L MCHC 31.5 L RDW 17.2 H Plt Count 320 MPV 10.1 Immature Gran % 0.0 Seg Neutrophils % 39.2 Lymphocytes % 48.6 Monocytes % 9.4 Eosinophils % 1.8 Basophils % 1.0 Neutrophils # 1.5 L Lymphocytes # 1.9 Monocytes # 0.4 Eosinophils # 0.1 Basophils # 0.0 Sodium Potassium Chloride Carbon Dioxide BUN Creatinine Est GFR ( Amer) Est GFR (Non-Af Amer) BUN/Creatinine Ratio Glucose Calculated Osmolality Calcium Total Bilirubin AST ALT Alkaline Phosphatase Serum Total Protein Albumin Globulin Albumin/Globulin Ratio Hepatitis A IgM Ab Hep Bs Antigen Hep B Core IgM Ab Hepatitis C Ab Screen Specimen Rejected Cultures: Serology 11/22/17 Range/Units 20:50 Hepatitis A IgM Ab Nonreactive (Nonreactive) Hep Bs Antigen Nonreactive (Nonreactive) Hep B Core IgM Ab Nonreactive (Nonreactive) Hepatitis C Ab Screen Nonreactive (Nonreactive) - Impressions Impressions Liver Ultrasound 11/23/17 07:30 IMPRESSION: 1. Biliary sludge and cholelithiasis without biliary dilatation. D/ / Stanislav Kay MD / Stanislav Kay MD Interpreting Provider: Stanislav Kay MD Exam - Constitutional Vitals: Temp Pulse Resp BP Pulse Ox 98.7 F 108 14 90/59 95 11/23/17 10:35 11/23/17 10:35 11/23/17 10:35 11/23/17 10:35 11/23/17 10:35 General appearance: average body habitus, cooperative, no acute distress - Head Head exam: Present: atraumatic, normal inspection, normocephalic - Eye Eye exam: Present: EOMI, normal appearance, PERRL Pupils: Present: normal accommodation - ENT ENT exam: Present: mucous membranes moist - Neck Neck exam: Present: normal inspection - Respiratory Respiratory exam: Present: CTAB. Absent: rales, respiratory distress, rhonchi, wheezes - Cardiovascular Cardiovascular exam: Present: +S1, +S2, tachycardia. Absent: irregular rhythm - GI/Abdominal GI/Abdominal exam: Present: normal bowel sounds, soft. Absent: distended, tenderness Additional comments: Mucous fistula noted to the RLQ with collection appliance intact with scant clear mucous noted. Ileostomy noted to the LLQ with small amount of dark green liquid stool noted. Midline abdominal incision well-healed without redness, warmth, or drainage noted. - Extremities Exam Extremities exam: Absent: joint swelling, normal inspection (Congenital malformation noted to the BLE.), pedal edema, tenderness - Neurological Exam Neurological exam: Present: alert, oriented X3. Absent: no focal deficits ( Paralysis noted to the BLE.) - Psychiatric Psychiatric exam: Present: normal affect, normal mood - Skin Skin exam: Present: dry, intact, normal color, warm - Additional findings Additional findings: A-port explantation site to the right upper chest with Allevyn dressing with small amount of old dark red drainage noted. No surrounding erythema or warmth. Patient reports tenderness with palpation. Consult Discharge Plan - Plan Referrals: Elicia Mcintosh AWNING INSTALLER [Primary Care Provider] - - Attending Attestation I examined this patient and my medical decision-making was reviewed with the Resident Physician. I agree with the documented findings, disposition and treatment plan as described except to the extent set forth below.
--- NOTE | 2017-11-23 14:07 | Internal Med Progress Note ---
Date of Encounter: 11/23/17 Time of Encounter: 14:04 - Assessment and plan (1) Elevated liver enzymes Current Visit: Yes Status: Acute Assessment and plan: liver ultrasound with findings of biliary sludge and cholelithiasis without dilatation Viral hepatitis panel nonreactive LFTs continue to rise GI consult Check a HIDA scan. (2) Intravenous line infection Current Visit: Yes Status: Acute Assessment and plan: Appreciate ID recommendations. Continue with micafungin. Fluconazole was stopped. Follow-up blood cultures are no growth to date. Port-A-Cath was discontinued. Qualifiers: Encounter type: initial encounter Qualified Code(s): T82.7XXA - Infection and inflammatory reaction due to other cardiac and vascular devices, implants and grafts, initial encounter (3) Candidemia Current Visit: No Status: Acute Assessment and plan: Continue with micafungin 100 mg daily. Monitor temperature curve and WBC trend. Follow-up cultures negative. Ophthalmology evaluation completed and reviewed (4) Hydrocephalus Current Visit: No Status: Chronic Assessment and plan: with spinabifida (5) CKD (chronic kidney disease) Current Visit: No Status: Acute Assessment and plan: Medications the knee dose adjusted and monitor renal function Qualifiers: Chronic kidney disease stage: unspecified stage Qualified Code(s): N18.9 - Chronic kidney disease, unspecified (6) Ileostomy present Current Visit: No Status: Chronic Assessment and plan: removes appliance - Subjective Interval history: Patient is lying in bed in no distress. He had removed his colostomy appliance in the bed was soiled. He denied any pain or shortness of breath. He denied fever or chills. He states his stomach is not hurting. He has high functioning MMR - Constitutional Vitals: Temp Pulse Resp BP Pulse Ox 98.7 F 108 14 90/59 95 11/23/17 10:35 11/23/17 10:35 11/23/17 10:35 11/23/17 10:35 11/23/17 10:35 General appearance: Present: cooperative, A&O X 3, pleasant, no acute distress, answers questions appropriately - Head Head exam: Present: atraumatic, normocephalic - Eye Eye exam: Present: PERRL, conjuntiva pink, sclera anicteric Pupils: Present: PERRL - Neck Neck exam general surgery: Present: supple, trachea midline. Absent: lymphadenopathy - Respiratory Respiratory exam: Present: CTAB. Absent: accessory muscle use, rales, rhonchi, wheezes - Cardiovascular Cardiovascular exam: Present: RRR, +S1, +S2. Absent: diastolic murmur, gallop, rubs, systolic murmur - GI/Abdominal GI/Abdominal exam: Present: normal bowel sounds, soft, no peritoneal signs. Absent: distended, tenderness Additional comments: Patient has colostomy and ileostomy - Extremities Exam Extremities exam: Present: warm, radial pulses palpable and symmetrical. Absent : calf tenderness, cyanotic, pedal edema - Neurological Exam Neurological exam: Present: alert, oriented X3, no focal deficits. Absent: pronater drift, facial droop, speech deficit - Skin Skin exam: Present: intact, normal color, warm Internal Medicine: Result - Labs CBC & Chem 7: 11/23/17 06:06 11/23/17 04:35 Labs: Short CBC 11/23/17 Range/Units 06:06 WBC 3.8 L (4.3-11.1) K/mcL Hgb 11.7 L (12.9-16.9) g/dL Hct 37.1 L (37.5-50.1) % Plt Count 320 (140-400) K/mcL Neutrophils # 1.5 L (1.6-8.9) K/mcL BMP 11/23/17 04:35 Sodium 138 Potassium 4.1 Chloride 107 Carbon Dioxide 18 L BUN 20 Creatinine 1.19 Glucose 103 Calcium 10.8 H Liver Function 11/23/17 Range/Units 04:35 Total Bilirubin 0.3 (0.3-1.0) mg/dL AST 163 H (13-39) Units/L ALT 367 H (7-52) Units/L Alkaline Phosphatase 66 (34-104) Units/L Albumin 3.9 (3.5-5.7) g/dL - Impressions Impressions Liver Ultrasound 11/23/17 07:30 IMPRESSION: 1. Biliary sludge and cholelithiasis without biliary dilatation. D/ / Stanislav Kay MD / Stanislav Kay MD Interpreting Provider: Stanislav Kay MD Consult Discharge Plan - Plan Referrals: Elicia Mcintosh, LISA [Primary Care Provider] -
[2017-11-24 04:43] LABS: Hematocrit 41.6 % (37.5-50.1); Hemoglobin 12.8 g/dL (12.9-16.9); Mean Corpuscular HGB Conc 30.8 g/dL (31.6-35.5); Mean Corpuscular Hemoglobin 27.5 pg (28.0-33.3); Mean Corpuscular Volume 89.3 fL (83.0-100.0); Mean Platelet Volume 10.2 fL (9.4-12.4); Platelet Count 336 K/mcL (140-400); Red Blood Count 4.66 M/mcL (4.19-5.50); Red Cell Distribution Width 17.1 % (11.5-14.5)
[2017-11-24 05:08] LABS: Alanine Aminotransferase 467 Units/L (7-52); Albumin 4.1 g/dL (3.5-5.7); Alkaline Phosphatase 71 Units/L (34-104); Aspartate Amino Transferase 198 Units/L (13-39); BUN/Creatinine Ratio 14 (6-26); Bilirubin,Total 0.5 mg/dL (0.3-1.0); Blood Urea Nitrogen 20 mg/dL (6-20); Calcium 11.2 mg/dL (8.6-10.3); Carbon Dioxide 19 mEq/L (23-29); Chloride 106 mEq/L (98-107); Globulin 4.1 g/dL (2.4-3.5); Glucose 92 mg/dL (70-105); Osmolality,Calculated 288 (280-300); Potassium 4.2 mEq/L (3.5-5.1); Sodium 138 mEq/L (136-145); Total Protein 8.2 g/dL (6.4-8.9); eGFR For African Americans > 60 (> 60); eGFR For Non-African Americans 60 (> 60)
[2017-11-24] MEDS: levETIRAcetam 250 MG TABLET PO SCH ×2 (05:10→17:39)
[2017-11-24] MEDS: *HR* Enoxaparin 40 MG/0.4 ML SYRINGE SQ SCH (05:10)
--- NOTE | 2017-11-24 12:34 | Gastroenterology Consult Note ---
<Supa Luna - Last Filed: 11/24/17 12:29> Date of Encounter: 11/24/17 Time of Encounter: 11:20 - Assessment and plan (1) Elevated liver enzymes Current Visit: Yes Status: Acute Assessment and plan: Likely secondary to medication (Fluconazole) which has been changed to Micafungin. LFTs found to be elevated on admission AST 95 and ALT 230. Today AST 198 and ALT 467. Hepatitis profile negative. Continue to monitor LFTs daily. (2) Candidemia Current Visit: No Status: Acute - Time Spent With Patient Total time spent is greater than 50% in coordination of care (as documented) at patient's floor/unit and/or counseling patient: GI History of Present Illness - Data of Consult Patient: new to practice Consult date: 11/24/17 Requesting Physician: Demond Garcia MD - Consult Narrative Reason for consult: Elevated LFT History of present illness: Mr. Benitez is a 32 year old male with PMHx of MRDD, cerebral palsy, spina bifida , hydrocephalus with VA shunt, ileostomy due to prior abdominal surgeries and fungemia was admitted for positive blood cultures and elevated liver enzymes. Patient was recently discharged from the hospital after admission to the ICU for septic shock in which he required vasopressors. The patient was found to be positive for Shayla glabrata and was started on IV antifungals. LFTs found to be elevated on admission AST 95 and ALT 230. Today AST 198 and ALT 467. Fluconazole was changed to Micafungin. He denies fever, chills, cough, chest pain, abdominal pain, nausea, vomiting, diarrhea, constipation, melena, or hematochezia. Liver US showed biliary sludge and cholelithiasis without biliary dilation. Hepatitis profile negative. 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 !, Hydrocephalus s/p bilateral MI[employer]Y [employer]ALITY [employer] TECHNICIAN shunt placement 20 years ago, Candidemia) Psychiatric history: anxiety, depression - Past Surgical History Surgical History: other (Partial nephrectomy with FRANCINE and SBR 08/16/17; SBR, Cecectomy, Mucus fistula/ileostomy, and MICRO[employer] QUALITY [employer] TECHNICIAN shunt externalization 08/25/17; MICRO[employer]Y [employer]ALITY [employer] TECHNICIAN shunt revision with conversion of MICROBIOLOGY QUALITY CONTROL TECHNICIAN shunt to VA shunt and removal of non- functioning right MICROBIOLOGY QUALITY [employer]OL TECHNICIAN shunt; a-port placement 09/2017, A-port removal 10/2017) - Social History Smoking Status: Never smoker Smokeless Tobacco Status: No Alcohol use: none Drug use: none - Family History Mother History Unknown: Yes Father Living Status: Still Living Hx Family Endocrine Disorder: Yes (DM) - Gastrointestinal Gastrointestinal: Present: as per HPI - Constitutional Constitutional: as per HPI - EENT Eyes: as per HPI Ears: Present: as per HPI Nose, mouth and throat: Present: as per HPI - Cardiovascular Cardiovascular ROS: Present: as per HPI - Respiratory Respiratory IM: Present: as per HPI - Genitourinary Genitourinary: Absent: change in color, Urinary frequency - Neurological ROS Neurological GI: Present: as per HPI - Hematologic/Lymphatic Hematologic/Lymphatic pediatric: Present: as per HPI - Musculoskeletal Musculoskeletal ROS GI: Present: as per HPI - Integumentary Integumentary GI: Present: as per HPI - Psychiatric ROS Psychiatric GI: Present: as per HPI - Endocrine Endocrine IM: Present: as per HPI - Constitutional Vitals: Temp Pulse Resp BP Pulse Ox 98.4 F 104 16 120/81 95 11/24/17 11:23 11/24/17 11:23 11/24/17 11:23 11/24/17 11:23 11/24/17 11:23 General appearance: Present: cooperative, A&O X 3, no acute distress, answers questions appropriately - Head Head exam: Present: atraumatic, normocephalic - Eye Eye exam: Present: normal appearance, sclera anicteric - ENT ENT exam: Present: mucous membranes dry - Neck Neck exam general surgery: Present: normal inspection, trachea midline - Respiratory Respiratory exam: Present: CTAB - Cardiovascular Cardiovascular exam: Present: RRR, +S1, +S2 - GI/Abdominal GI/Abdominal exam: Present: soft, no peritoneal signs. Absent: distended, firm , guarding, tenderness Additional comments: Patient has colostomy and ileostomy - Rectal Rectal exam: Present: deferred - Extremities Exam Extremities exam: Present: warm - Neurological Exam Neurological exam: Present: no focal deficits - Psychiatric Psychiatric exam: Present: normal affect, normal mood - Skin Skin exam: Present: dry, intact, normal color, warm Results - Labs CBC & Chem 7: 11/24/17 04:16 11/24/17 04:16 Labs: Last Result Calcium 11.2 mg/dL (8.6-10.3) H 11/24/17 04:16 Troponin I < 0.03 ng/mL (< 0.04) 11/21/17 20:26 Entire Visit Hgb 12.8 g/dL (12.9-16.9) L 11/24/17 04:16 Hct 41.6 % (37.5-50.1) 11/24/17 04:16 Total Bilirubin 0.5 mg/dL (0.3-1.0) 11/24/17 04:16 AST 198 Units/L (13-39) H 11/24/17 04:16 ALT 467 Units/L (7-52) H 11/24/17 04:16 Consult Discharge Plan - Plan Referrals: Elicia Mcintosh ANNEALER HELPER [Primary Care Provider] - <Jake Garcia - Last Filed: 11/24/17 17:46> Date of Encounter: 11/24/17 Time of Encounter: 14:00 - Time Spent With Patient Total time spent is greater than 50% in coordination of care (as documented) at patient's floor/unit and/or counseling patient: GI History of Present Illness - Data of Consult Requesting Physician: Demond Garcia MD - Consult Narrative History of present illness: Mr. Benitez is a 32 year old male - Constitutional Vitals: Temp Pulse Resp BP Pulse Ox 98.7 F 115 16 120/83 93 11/24/17 15:27 11/24/17 15:27 11/24/17 15:27 11/24/17 15:27 11/24/17 15:27 Results - Labs CBC & Chem 7: 11/24/17 04:16 11/24/17 04:16 Labs: Last Result Calcium 11.2 mg/dL (8.6-10.3) H 11/24/17 04:16 Troponin I < 0.03 ng/mL (< 0.04) 11/21/17 20:26 Entire Visit Hgb 12.8 g/dL (12.9-16.9) L 11/24/17 04:16 Hct 41.6 % (37.5-50.1) 11/24/17 04:16 Total Bilirubin 0.5 mg/dL (0.3-1.0) 11/24/17 04:16 AST 198 Units/L (13-39) H 11/24/17 04:16 ALT 467 Units/L (7-52) H 11/24/17 04:16 - Attending Attestation I have personally performed a face to face evaluation on this patient. I have reviewed and agree with the care plan. History and Exam by me shows:
--- NOTE | 2017-11-24 13:54 | Internal Med Progress Note ---
Date of Encounter: 11/24/17 Time of Encounter: 13:52 - Assessment and plan (1) Elevated liver enzymes Current Visit: Yes Status: Acute Assessment and plan: liver ultrasound with findings of biliary sludge and cholelithiasis without dilatation Viral hepatitis panel nonreactive LFTs continue to rise, we will continue to monitor He was receiving flucanazole at the [facility] and it was changed to micafungin on admission. GI following Patient unable to complete or even start HIDA scan. (2) Intravenous line infection Current Visit: Yes Status: Acute Assessment and plan: Appreciate ID recommendations. Continue with micafungin. Fluconazole was stopped. Follow-up blood cultures no growth to date. Port-A-Cath was discontinued. Infectious disease following Qualifiers: Encounter type: initial encounter Qualified Code(s): T82.7XXA - Infection and inflammatory reaction due to other cardiac and vascular devices, implants and grafts, initial encounter (3) Candidemia Current Visit: No Status: Acute Assessment and plan: Continue with micafungin 100 mg daily. Monitor temperature curve and WBC trend. Follow-up cultures negative. Ophthalmology evaluation completed and reviewed (4) Hydrocephalus Current Visit: No Status: Chronic Assessment and plan: Patient with spinabifida (5) CKD (chronic kidney disease) Current Visit: No Status: Acute Assessment and plan: Medications dose adjusted and continue to monitor renal function Qualifiers: Chronic kidney disease stage: unspecified stage Qualified Code(s): N18.9 - Chronic kidney disease, unspecified (6) Ileostomy present Current Visit: No Status: Chronic Assessment and plan: functioning - Subjective Interval history: Patient is lying in bed in no distress. . He denied any pain or shortness of breath. He denied fever or chills or abdominal pain. He has high functioning MMR - Constitutional Vitals: Temp Pulse Resp BP Pulse Ox 98.4 F 104 16 120/81 95 11/24/17 11:23 11/24/17 11:23 11/24/17 11:23 11/24/17 11:23 11/24/17 11:23 General appearance: Present: cooperative, A&O X 3, pleasant - Head Head exam: Present: atraumatic, normocephalic - Eye Eye exam: Present: PERRL, conjuntiva pink, sclera anicteric Pupils: Present: PERRL - Neck Neck exam general surgery: Present: supple, trachea midline. Absent: lymphadenopathy - Respiratory Respiratory exam: Present: CTAB. Absent: accessory muscle use, rales, rhonchi, wheezes - Cardiovascular Cardiovascular exam: Present: RRR, +S1, +S2. Absent: diastolic murmur, gallop, rubs, systolic murmur - GI/Abdominal GI/Abdominal exam: Present: normal bowel sounds, soft, no peritoneal signs. Absent: distended, tenderness - Extremities Exam Extremities exam: Present: warm, radial pulses palpable and symmetrical. Absent : calf tenderness, cyanotic, pedal edema Additional comments: Functioning colostomy and ileostomy - Neurological Exam Neurological exam: Present: alert, oriented X3. Absent: pronater drift, facial droop, speech deficit Additional comments: Patient has spina bifida with decreased sensation abdomen/ lower extremities. - Skin Skin exam: Present: dry, normal color, warm Internal Medicine: Result - Labs CBC & Chem 7: 11/24/17 04:16 11/24/17 04:16 Labs: Short CBC 11/24/17 Range/Units 04:16 WBC 4.7 (4.3-11.1) K/mcL Hgb 12.8 L (12.9-16.9) g/dL Hct 41.6 (37.5-50.1) % Plt Count 336 (140-400) K/mcL BMP 11/24/17 04:16 Sodium 138 Potassium 4.2 Chloride 106 Carbon Dioxide 19 L BUN 20 Creatinine 1.38 H Glucose 92 Calcium 11.2 H Liver Function 11/24/17 Range/Units 04:16 Total Bilirubin 0.5 (0.3-1.0) mg/dL AST 198 H (13-39) Units/L ALT 467 H (7-52) Units/L Alkaline Phosphatase 71 (34-104) Units/L Albumin 4.1 (3.5-5.7) g/dL Consult Discharge Plan - Plan Referrals: Elicia Mcintosh, LISA [Primary Care Provider] -
--- NOTE | 2017-11-24 15:59 | Infectious Disease Progress No ---
Date of Encounter: 11/24/17 Time of Encounter: 15:57 - Assessment and Plan (1) Intravenous line infection Current Visit: Yes Status: Acute Causative organism: C. parapsilosis. Blood cultures drawn 11/16/17 1/2 sets from the patient's midline are positive for C. parapsilosis per PCR. No peripheral stick blood cultures were drawn at the same time. Likely secondary to seeding from the patient's previous candidemia. Midline has been removed. Peripheral blood cultures drawn x 2 sets 11/21/17 are NGTD. No blood cultures were drawn from the midline prior to its removal. Qualifiers: Encounter type: initial encounter Qualified Code(s): T82.7XXA - Infection and inflammatory reaction due to other cardiac and vascular devices, implants and grafts, initial encounter (2) Elevated liver enzymes Current Visit: Yes Status: Acute Etiology unclear, but could be secondary to IV fluconazole. Hepatitis pattern based on lab values. Abdominal exam benign. Liver enzymes worse this morning despite discontinuing fluconazole. Liver UTS negative. Hepatitis profile negative. GI consulted. Recommended HIDA scan, but patient refused. Await further recommendations. If secondary to fluconazole, could take several weeks for levels to get back to normal. Repeat LFTs in the AM. (3) Candidemia Current Visit: No Status: Acute Causative organism: C. glabrata. Source likely the patient's a-port, which was removed. The patient did have what appeared to be cellulitis overlying the A-port site. No blood cultures were obtained from the a-port prior to its removal and the catheter tip was not sent for culture. Peripheral blood cultures drawn 11/10/17 were positive 2/2 sets for C. glabrata. Blood cultures drawn from the patient's CVC 11/11/17 1/1 set were negative. Repeat blood cultures drawn 11/14/17 were negative x 1 set. Additional blood cultures drawn from the patient's midline or CVC prior to discharge on 11/16/17 are positive 1/2 sets for C. parapsilosis. No peripheral blood cultures were drawn concurrently. Peripheral blood cultures drawn 11/21/17 are NGTD x 2 sets. The patient has a prior history of Candidemia with the same causative organism in August after his abdominal surgery. A-port removed 11/11/17. Continue Micafungin 100mg IV daily. Duration of treatment depends on the clinical picture, but likely 14 days. Treat through 11/29/17, then discontinue. Monitor renal and liver function and dose-adjust antibiotics. Baseline LFTs were normal prior to discharge, but are now elevated. See additional recommendations above. Not sure if this recurrence is seeding of the midline/CVC from his Candidemia in October or related to his previous episode in August. Although it is unlikely, the patient is at risk for seeding of his VA shunt. If he has another recurrence, he will likely need to be referred to [facility]neurology for evaluation of seeding of his [facility] shunt. Opthalmology evaluation noted and appreciated. No endopthalmitis noted per Dr. Montesinos. (4) Infection due to port-a-cath Current Visit: No Status: Suspected Suspected: Concern for infection of the patient's a-port based on overlying cellulitis, candidemia, and recent TPN infusion through the a-port. Causative organism unclear: Shayla vs. bacterial vs. both. No blood cultures were obtained from the a-port. Catheter tip was not sent for culture after removal. Continue antifungals as stated above. Status post a-port removal 11/11/17. Wound culture positive for Yeast species, but suspect this is a contaminant from the skin. Wound care per the primary team. Qualifiers: Encounter type: initial encounter Qualified Code(s): T80.219A - Unspecified infection due to central venous catheter, initial encounter (5) CKD (chronic kidney disease) Current Visit: No Status: Acute Monitor renal function and dose-adjust antifungals. Qualifiers: Chronic kidney disease stage: unspecified stage Qualified Code(s): N18.9 - Chronic kidney disease, unspecified (6) Ileostomy present Current Visit: No Status: Chronic Ostomy nurse consult to assist with management. (7) Spina bifida Current Visit: No Status: Chronic Qualifiers: Spinal region: lumbar Presence of hydrocephalus: with hydrocephalus Qualified Code(s): Q05.2 - Lumbar spina bifida with hydrocephalus - Subjective Interval history: Patient seen and examined. No acute events noted overnight. Patient sitting up in bed complaining that he is hungry. Refused HIDA scan this morning. Denies chest pain, shortness of breath or cough. Denies nausea, vomiting, or diarrhea. Denies abdominal pain. States his colostomy bag is leaking again. States he has not eaten breakfast yet this morning. States he is hungry. Denies pain today. Infect Dis PN-Objective Data - Labs CBC & Chem 7: 11/24/17 04:16 11/24/17 04:16 Labs: Laboratory Results - last 24 hr 11/24/17 11/24/17 04:16 04:16 WBC 4.7 RBC 4.66 Hgb 12.8 L Hct 41.6 MCV 89.3 MCH 27.5 L MCHC 30.8 L RDW 17.1 H Plt Count 336 MPV 10.2 Sodium 138 Potassium 4.2 Chloride 106 Carbon Dioxide 19 L BUN 20 Creatinine 1.38 H Est GFR ( Amer) > 60 Est GFR (Non-Af Amer) 60 BUN/Creatinine Ratio 14 Glucose 92 Calculated Osmolality 288 Calcium 11.2 H Total Bilirubin 0.5 AST 198 H ALT 467 H Alkaline Phosphatase 71 Serum Total Protein 8.2 Albumin 4.1 Globulin 4.1 H Albumin/Globulin Ratio 1.0 L Cultures: Serology 11/22/17 Range/Units 20:50 Hepatitis A IgM Ab Nonreactive (Nonreactive) Hep Bs Antigen Nonreactive (Nonreactive) Hep B Core IgM Ab Nonreactive (Nonreactive) Hepatitis C Ab Screen Nonreactive (Nonreactive) Exam - Constitutional Vitals: Temp Pulse Resp BP Pulse Ox 98.7 F 115 16 120/83 93 11/24/17 15:27 11/24/17 15:27 11/24/17 15:27 11/24/17 15:27 11/24/17 15:27 General appearance: average body habitus, cooperative, no acute distress - Head Head exam: Present: atraumatic, normal inspection, normocephalic - Eye Eye exam: Present: EOMI, normal appearance, PERRL Pupils: Present: normal accommodation - ENT ENT exam: Present: mucous membranes moist - Neck Neck exam: Present: normal inspection - Respiratory Respiratory exam: Present: CTAB. Absent: rales, respiratory distress, rhonchi, wheezes - Cardiovascular Cardiovascular exam: Present: +S1, +S2, tachycardia. Absent: irregular rhythm - GI/Abdominal GI/Abdominal exam: Present: normal bowel sounds, soft. Absent: distended, tenderness Additional comments: Ileostomy noted to the LLQ with small amount of dark green formed stool noted. Bowel contents leaking out from under stoma wafer. Mucous fistula noted to the RLQ with small amount of clear mucous noted in the collection bag. Well-healed midline abdominal incision noted. - Extremities Exam Extremities exam: Absent: joint swelling, normal inspection (Congenital malformation noted to the BLE.), pedal edema, tenderness - Neurological Exam Neurological exam: Present: alert, oriented X3. Absent: no focal deficits ( Paralysis noted to the BLE.) - Psychiatric Psychiatric exam: Present: normal affect, normal mood - Skin Skin exam: Present: dry, intact, normal color, warm - Additional findings Additional findings: A-port explantation site noted to the right upper chest with Allevyn dressing intact. Small amount of yellow drainage noted in the wound bed. No surrounding erythema or warmth noted. Consult Discharge Plan - Plan Referrals: Elicia Mcintosh CNP [Primary Care Provider] - - Attending Attestation I examined this patient and my medical decision-making was reviewed with the Resident Physician. I agree with the documented findings, disposition and treatment plan as described except to the extent set forth below.
[2017-11-24] MEDS: lamoTRIgine 100 MG TABLET PO SCH ×2 (16:07→21:20)
[2017-11-24] MEDS: dilTIAZem HCl 60 MG TABLET PO SCH ×3 (16:07→21:20)
[2017-11-24] MEDS: Famotidine 20 MG TABLET PO SCH ×2 (16:08→21:20)
[2017-11-24] MEDS: Micafungin 100 MG in 0.9 % Sodium Chloride Mini Bag 100 ML IVPB SCH (17:38)
[2017-11-25] MEDS: *HR* Enoxaparin 40 MG/0.4 ML SYRINGE SQ SCH (06:24)
[2017-11-25] MEDS: levETIRAcetam 250 MG TABLET PO SCH ×2 (06:24→18:11)
[2017-11-25] MEDS: dilTIAZem HCl 60 MG TABLET PO SCH ×4 (08:54→21:10)
[2017-11-25] MEDS: Micafungin 100 MG in 0.9 % Sodium Chloride Mini Bag 100 ML IVPB SCH (08:54)
[2017-11-25] MEDS: Famotidine 20 MG TABLET PO SCH ×2 (08:54→21:10)
[2017-11-25] MEDS: lamoTRIgine 100 MG TABLET PO SCH ×2 (08:54→21:10)
--- NOTE | 2017-11-25 09:44 | Infectious Disease Progress No ---
Date of Encounter: 11/25/17 Time of Encounter: 09:41 - Assessment and Plan (1) Intravenous line infection Current Visit: Yes Status: Acute Causative organism: C. parapsilosis. Blood cultures drawn 11/16/17 1/2 sets from the patient's midline are positive for C. parapsilosis per PCR. No peripheral stick blood cultures were drawn at the same time. Likely secondary to seeding from the patient's previous candidemia. Midline has been removed. Peripheral blood cultures drawn x 2 sets 11/21/17 are NGTD. No blood cultures were drawn from the midline prior to its removal. Qualifiers: Encounter type: initial encounter Qualified Code(s): T82.7XXA - Infection and inflammatory reaction due to other cardiac and vascular devices, implants and grafts, initial encounter (2) Elevated liver enzymes Current Visit: Yes Status: Acute Etiology unclear, but could be secondary to IV fluconazole. Hepatitis pattern based on lab values. Abdominal exam benign. Liver enzymes worse this morning despite discontinuing fluconazole. Liver UTS negative. Hepatitis profile negative. GI consulted. Recommended HIDA scan, but patient refused. Await further recommendations. If secondary to fluconazole, could take several weeks for levels to get back to normal. Patient refused labs this morning. (3) Candidemia Current Visit: No Status: Acute Causative organism: C. glabrata. Source likely the patient's a-port, which was removed. The patient did have what appeared to be cellulitis overlying the A-port site. No blood cultures were obtained from the a-port prior to its removal and the catheter tip was not sent for culture. Peripheral blood cultures drawn 11/10/17 were positive 2/2 sets for C. glabrata. Blood cultures drawn from the patient's CVC 11/11/17 1/1 set were negative. Repeat blood cultures drawn 11/14/17 were negative x 1 set. Additional blood cultures drawn from the patient's midline or CVC prior to discharge on 11/16/17 are positive 1/2 sets for C. parapsilosis. No peripheral blood cultures were drawn concurrently. Peripheral blood cultures drawn 11/21/17 are NGTD x 2 sets. The patient has a prior history of Candidemia with the same causative organism in August after his abdominal surgery. A-port removed 11/11/17. Continue Micafungin 100mg IV daily. Duration of treatment depends on the clinical picture, but likely 14 days. Treat through 11/29/17, then discontinue. Monitor renal and liver function and dose-adjust antibiotics. Baseline LFTs were normal prior to discharge, but are now elevated. See additional recommendations above. Not sure if this recurrence is seeding of the midline/CVC from his Candidemia in October or related to his previous episode in August. Although it is unlikely, the patient is at risk for seeding of his VA shunt. If he has another recurrence, he will likely need to be referred to [facility] for evaluation of seeding of his [facility] shunt. Opthalmology evaluation noted and appreciated. No endopthalmitis noted per Dr. Montesinos. (4) Infection due to port-a-cath Current Visit: No Status: Suspected Suspected: Concern for infection of the patient's a-port based on overlying cellulitis, candidemia, and recent TPN infusion through the a-port. Causative organism unclear: Shayla vs. bacterial vs. both. No blood cultures were obtained from the a-port. Catheter tip was not sent for culture after removal. Continue antifungals as stated above. Status post a-port removal 11/11/17. Wound culture positive for Yeast species, but suspect this is a contaminant from the skin. Wound care per the primary team. Qualifiers: Encounter type: initial encounter Qualified Code(s): T80.219A - Unspecified infection due to central venous catheter, initial encounter (5) CKD (chronic kidney disease) Current Visit: No Status: Acute Monitor renal function and dose-adjust antifungals. Qualifiers: Chronic kidney disease stage: unspecified stage Qualified Code(s): N18.9 - Chronic kidney disease, unspecified (6) Ileostomy present Current Visit: No Status: Chronic Ostomy nurse consult to assist with management. (7) Spina bifida Current Visit: No Status: Chronic Qualifiers: Spinal region: lumbar Presence of hydrocephalus: with hydrocephalus Qualified Code(s): Q05.2 - Lumbar spina bifida with hydrocephalus - Subjective Interval history: Patient seen and examined. No acute events noted overnight. Patient sitting up in bed preparing to eat breakfast. Denies fevers, chills, or rigors. Denies chest pain, shortness of breath, or cough. Complains of pain at the site of his a-port explantation. Denies nausea, vomiting, or diarrhea. Complains of intermittent LUQ abdominal pain that seems to improve when he eats. States his ileostomy bag is intact. Denies urinary complaints. Infect Dis PN-Objective Data - Labs CBC & Chem 7: 11/25/17 11:17 11/24/17 04:16 Cultures: Serology 11/22/17 Range/Units 20:50 Hepatitis A IgM Ab Nonreactive (Nonreactive) Hep Bs Antigen Nonreactive (Nonreactive) Hep B Core IgM Ab Nonreactive (Nonreactive) Hepatitis C Ab Screen Nonreactive (Nonreactive) Exam - Constitutional Vitals: Temp Pulse Resp BP Pulse Ox 98.4 F 117 18 115/72 96 11/25/17 06:56 11/25/17 09:38 11/25/17 09:38 11/25/17 09:38 11/25/17 09:38 General appearance: average body habitus, cooperative, no acute distress - Head Head exam: Present: atraumatic, normal inspection, normocephalic - Eye Eye exam: Present: EOMI, normal appearance, PERRL Pupils: Present: normal accommodation - ENT ENT exam: Present: mucous membranes moist - Neck Neck exam: Present: normal inspection - Respiratory Respiratory exam: Present: CTAB. Absent: rales, respiratory distress, rhonchi, wheezes - Cardiovascular Cardiovascular exam: Present: +S1, +S2, tachycardia. Absent: irregular rhythm - GI/Abdominal GI/Abdominal exam: Present: normal bowel sounds, soft, tenderness (LUQ). Absent : distended Additional comments: Ileostomy noted to the LLQ with moderate amount of green liquid stool noted in the collection bag. Mucous fistula noted to the RLQ with small amount of brown-tinged mucous. - Extremities Exam Extremities exam: Absent: joint swelling, normal inspection (Congenital malformation noted to the BLE.), pedal edema, tenderness - Neurological Exam Neurological exam: Present: alert, oriented X3. Absent: no focal deficits ( Paralysis noted to the BLE.) - Psychiatric Psychiatric exam: Present: normal affect, normal mood - Skin Skin exam: Present: dry, intact, normal color, warm - Additional findings Additional findings: Dressing to the right upper chest explantation site with small amount of old drainage noted. Consult Discharge Plan - Plan Referrals: Elicia Mcintosh, FEATHER BONER [Primary Care Provider] - - Attending Attestation I examined this patient and my medical decision-making was reviewed with the Resident Physician. I agree with the documented findings, disposition and treatment plan as described except to the extent set forth below.
[2017-11-25 11:47] LABS: Hematocrit 43.1 % (37.5-50.1); Hemoglobin 13.6 g/dL (12.9-16.9); Mean Corpuscular HGB Conc 31.6 g/dL (31.6-35.5); Mean Corpuscular Hemoglobin 27.3 pg (28.0-33.3); Mean Corpuscular Volume 86.5 fL (83.0-100.0); Mean Platelet Volume 10.9 fL (9.4-12.4); Platelet Count 300 K/mcL (140-400); Red Blood Count 4.98 M/mcL (4.19-5.50); Red Cell Distribution Width 17.2 % (11.5-14.5)
[2017-11-25] MEDS ORDERED: Ondansetron 4 MG/2 ML VIAL IVP PRN (14:02)
--- NOTE | 2017-11-25 14:38 | Internal Med Progress Note ---
Date of Encounter: 11/25/17 Time of Encounter: 14:35 - Assessment and plan (1) Elevated liver enzymes Current Visit: Yes Status: Acute Assessment and plan: liver ultrasound with findings of biliary sludge and cholelithiasis without dilatation Viral hepatitis panel nonreactive LFTs continue to rise, we will continue to monitor however patient refuses lab work today He was receiving flucanazole at the [facility] and it was changed to micafungin on admission. GI following Became nauseated with emesis today 1, Zofran given Patient unable to complete or even start HIDA scan. (2) Intravenous line infection Current Visit: Yes Status: Acute Assessment and plan: Appreciate ID recommendations. Continue with micafungin. Fluconazole was stopped. Follow-up blood cultures no growth to date. Port-A-Cath was discontinued. Infectious disease following Qualifiers: Encounter type: initial encounter Qualified Code(s): T82.7XXA - Infection and inflammatory reaction due to other cardiac and vascular devices, implants and grafts, initial encounter (3) Candidemia Current Visit: No Status: Acute Assessment and plan: Continue with micafungin 100 mg daily. Monitor temperature curve and WBC trend. Follow-up cultures negative. Ophthalmology evaluation completed and reviewed (4) Hydrocephalus Current Visit: No Status: Chronic Assessment and plan: Patient with associated history spinabifida (5) CKD (chronic kidney disease) Current Visit: No Status: Acute Assessment and plan: Medications dose adjusted, continue to monitor renal function Qualifiers: Chronic kidney disease stage: unspecified stage Qualified Code(s): N18.9 - Chronic kidney disease, unspecified (6) Ileostomy present Current Visit: No Status: Chronic Assessment and plan: functioning with bag intact - Subjective Interval history: Patient is lying in bed in no distress. he is nauseated and vomited today. He is rufusing lab work. He denied chest pain or shortness of breath. He denied fever or chills or abdominal pain. - Constitutional Vitals: Temp Pulse Resp BP Pulse Ox 98.2 F 115 18 110/80 94 11/25/17 11:30 11/25/17 11:30 11/25/17 11:30 11/25/17 11:30 11/25/17 11:30 General appearance: Present: A&O X 3, pleasant Exam: uncooperative at times, refused lab work today - Head Head exam: Present: atraumatic, normocephalic - Eye Eye exam: Present: PERRL, conjuntiva pink, sclera anicteric Pupils: Present: PERRL - Neck Neck exam general surgery: Present: supple, trachea midline. Absent: lymphadenopathy - Respiratory Respiratory exam: Present: CTAB. Absent: accessory muscle use, rales, rhonchi, wheezes - Cardiovascular Cardiovascular exam: Present: RRR, +S1, +S2. Absent: diastolic murmur, gallop, rubs, systolic murmur - GI/Abdominal GI/Abdominal exam: Present: normal bowel sounds, soft, no peritoneal signs. Absent: distended, tenderness - Extremities Exam Extremities exam: Present: warm, radial pulses palpable and symmetrical. Absent : calf tenderness, cyanotic, pedal edema - Neurological Exam Neurological exam: Present: alert, oriented X3. Absent: pronater drift, facial droop, speech deficit Additional comments: spinibifida - Skin Skin exam: Present: dry, intact, warm Internal Medicine: Result - Labs CBC & Chem 7: 11/25/17 11:17 11/24/17 04:16 Labs: Short CBC 11/25/17 Range/Units 11:17 WBC 5.1 (4.3-11.1) K/mcL Hgb 13.6 (12.9-16.9) g/dL Hct 43.1 (37.5-50.1) % Plt Count 300 (140-400) K/mcL Consult Discharge Plan - Plan Referrals: Elicia Mcintosh, LISA [Primary Care Provider] -
[2017-11-25 14:41] LABS: Alanine Aminotransferase > 500 Units/L (7-52); Albumin 4.2 g/dL (3.5-5.7); Albumin/Globulin Ratio 0.9 (1.1-2.2); Alkaline Phosphatase 77 Units/L (34-104); Aspartate Amino Transferase 232 Units/L (13-39); BUN/Creatinine Ratio 19 (6-26); Bilirubin,Total 0.5 mg/dL (0.3-1.0); Blood Urea Nitrogen 25 mg/dL (6-20); Calcium 11.7 mg/dL (8.6-10.3); Carbon Dioxide 16 mEq/L (23-29); Chloride 105 mEq/L (98-107); Globulin 4.7 g/dL (2.4-3.5); Glucose 83 mg/dL (70-105); Osmolality,Calculated 280 (280-300); Potassium 5.4 mEq/L (3.5-5.1); Sodium 133 mEq/L (136-145); Total Protein 8.9 g/dL (6.4-8.9); eGFR For African Americans > 60 (> 60); eGFR For Non-African Americans > 60 (> 60)
[2017-11-25] MEDS: *HR* OxyCODONE Immed Rel 5 MG TABLET PO PRN (19:43)
[2017-11-26 05:22] LABS: Hematocrit 46.6 % (37.5-50.1); Hemoglobin 14.4 g/dL (12.9-16.9); Mean Corpuscular HGB Conc 30.9 g/dL (31.6-35.5); Mean Corpuscular Volume 87.4 fL (83.0-100.0); Platelet Count 323 K/mcL (140-400); Red Blood Count 5.33 M/mcL (4.19-5.50); Red Cell Distribution Width 16.8 % (11.5-14.5)
[2017-11-26 05:45] LABS: Alanine Aminotransferase > 500 Units/L (7-52); Albumin 4.6 g/dL (3.5-5.7); Albumin/Globulin Ratio 1.1 (1.1-2.2); Alkaline Phosphatase 85 Units/L (34-104); Aspartate Amino Transferase 212 Units/L (13-39); BUN/Creatinine Ratio 16 (6-26); Bilirubin,Total 0.6 mg/dL (0.3-1.0); Blood Urea Nitrogen 27 mg/dL (6-20); Calcium 11.9 mg/dL (8.6-10.3); Carbon Dioxide 17 mEq/L (23-29); Chloride 100 mEq/L (98-107); Globulin 4.1 g/dL (2.4-3.5); Glucose 99 mg/dL (70-105); Osmolality,Calculated 277 (280-300); Potassium 4.9 mEq/L (3.5-5.1); Sodium 131 mEq/L (136-145); Total Protein 8.7 g/dL (6.4-8.9); eGFR For African Americans 57 (> 60); eGFR For Non-African Americans 47 (> 60)
[2017-11-26] MEDS: levETIRAcetam 250 MG TABLET PO SCH ×2 (06:38→17:00)
[2017-11-26] MEDS: dilTIAZem HCl 60 MG TABLET PO SCH ×4 (09:48→19:56)
[2017-11-26] MEDS: Famotidine 20 MG TABLET PO SCH ×2 (09:48→19:56)
[2017-11-26] MEDS: lamoTRIgine 100 MG TABLET PO SCH ×2 (09:48→19:55)
[2017-11-26] MEDS: *HR* Enoxaparin 40 MG/0.4 ML SYRINGE SQ SCH (09:48)
[2017-11-26] MEDS: Micafungin 100 MG in 0.9 % Sodium Chloride Mini Bag 100 ML IVPB SCH (09:49)
--- NOTE | 2017-11-26 10:07 | Internal Med Progress Note ---
Date of Encounter: 11/26/17 Time of Encounter: 10:05 - Assessment and plan (1) Elevated liver enzymes Current Visit: Yes Status: Acute Assessment and plan: liver ultrasound with findings of biliary sludge and cholelithiasis without dilatation Viral hepatitis panel nonreactive LFTs continue to rise, continue to monitor He was receiving flucanazole at the [facility] facility and it was changed to micafungin on admission. GI following Became nauseated with emesis 1, Zofran given, no further emesis and nausea resolved Patient unable to complete or even start HIDA scan. ALT is greater than 500, AST is slightly lower. We will provide a fluid challenge of gentle IV hydration 75 mL an hour and recheck labs in the a.m. (2) Intravenous line infection Current Visit: Yes Status: Acute Assessment and plan: Appreciate ID recommendations. Continue with micafungin. Fluconazole was stopped. Follow-up blood cultures no growth to date. Port-A-Cath was discontinued. Infectious disease following Qualifiers: Encounter type: initial encounter Qualified Code(s): T82.7XXA - Infection and inflammatory reaction due to other cardiac and vascular devices, implants and grafts, initial encounter (3) Candidemia Current Visit: No Status: Acute Assessment and plan: Continue with micafungin 100 mg daily. Monitor temperature curve and WBC trend. Follow-up cultures negative. Patient remains afebrile Ophthalmology evaluation completed and reviewed (4) Hydrocephalus Current Visit: No Status: Chronic Assessment and plan: Patient with associated history spinabifida, will return to [facility] when medically cleared (5) CKD (chronic kidney disease) Current Visit: No Status: Acute Assessment and plan: Medications dose adjusted, continue to monitor renal function Renal function is slightly worsened, will add gentle IV fluids. This may be compounded by high output colostomy Qualifiers: Chronic kidney disease stage: unspecified stage Qualified Code(s): N18.9 - Chronic kidney disease, unspecified (6) Ileostomy present Current Visit: No Status: Chronic Assessment and plan: functioning with bag intact. Clear yellow urine - Subjective Interval history: Patient is sitting up in bed very T breakfast. He states his abdomen hurts and then points to the old port site in his right chest wall. He denies any abdominal pain when asked specifically to 0.2 his pain. He denies nausea or further emesis. He has no chest pain or shortness of breath, denies fever or chills. - Constitutional Vitals: Temp Pulse Resp BP Pulse Ox 98.0 F 111 18 101/73 92 11/26/17 07:02 11/26/17 07:02 11/26/17 07:02 11/26/17 07:02 11/26/17 07:02 General appearance: Present: cooperative, A&O X 3, pleasant - Head Head exam: Present: atraumatic, normocephalic - Eye Eye exam: Present: PERRL, conjuntiva pink, sclera anicteric Pupils: Present: PERRL - Neck Neck exam general surgery: Present: supple, trachea midline. Absent: lymphadenopathy - Respiratory Respiratory exam: Present: CTAB. Absent: accessory muscle use, rales, rhonchi, wheezes - Cardiovascular Cardiovascular exam: Present: RRR, +S1, +S2. Absent: diastolic murmur, gallop, rubs, systolic murmur - GI/Abdominal GI/Abdominal exam: Present: soft, no peritoneal signs. Absent: distended, tenderness Additional comments: Patient has high output colostomy with liquid brown stool. Also has ileostomy with clear yellow urine output. - Extremities Exam Extremities exam: Present: warm. Absent: calf tenderness, cyanotic, pedal edema Additional comments: Lower extremities contracted and small secondary to spina bifida - Neurological Exam Neurological exam: Present: alert, CN II-XII intact, oriented X3, no focal deficits. Absent: pronater drift, facial droop, speech deficit - Skin Skin exam: Present: dry, intact, normal color, warm Internal Medicine: Result - Labs CBC & Chem 7: 11/26/17 04:17 11/26/17 04:17 Labs: Short CBC 11/25/17 11/26/17 Range/Units 11:17 04:17 WBC 5.1 6.3 (4.3-11.1) K/mcL Hgb 13.6 14.4 (12.9-16.9) g/dL Hct 43.1 46.6 (37.5-50.1) % Plt Count 300 323 (140-400) K/mcL BMP 11/25/17 11/26/17 13:26 04:17 Sodium 133 L 131 L Potassium 5.4 H 4.9 Chloride 105 100 Carbon Dioxide 16 L 17 L BUN 25 H 27 H Creatinine 1.32 H 1.69 H Glucose 83 99 Calcium 11.7 H 11.9 H Liver Function 11/25/17 11/26/17 Range/Units 13:26 04:17 Total Bilirubin 0.5 0.6 (0.3-1.0) mg/dL AST 232 H 212 H (13-39) Units/L ALT > 500 H > 500 H (7-52) Units/L Alkaline Phosphatase 77 85 (34-104) Units/L Albumin 4.2 4.6 (3.5-5.7) g/dL Consult Discharge Plan - Plan Referrals: Elicia Mcintosh, ENVIRONMENTAL CONSULTANT [Primary Care Provider] -
[2017-11-26] MEDS: 0.9 % Sodium Chloride 1,000 ML IVC SCH (11:34)
[2017-11-26] MEDS: *HR* OxyCODONE Immed Rel 5 MG TABLET PO PRN (19:56)
[2017-11-27] MEDS: 0.9 % Sodium Chloride 1,000 ML IVC SCH (00:55)
[2017-11-27] MEDS: levETIRAcetam 250 MG TABLET PO SCH (05:10)
[2017-11-27] MEDS: *HR* Enoxaparin 40 MG/0.4 ML SYRINGE SQ SCH (05:10)
[2017-11-27 06:53] VITALS: BP 89/55
[2017-11-27] MEDS: lamoTRIgine 100 MG TABLET PO SCH (07:52)
[2017-11-27] MEDS: Micafungin 100 MG in 0.9 % Sodium Chloride Mini Bag 100 ML IVPB SCH (07:52)
[2017-11-27] MEDS: Famotidine 20 MG TABLET PO SCH (07:52)
[2017-11-27] MEDS: dilTIAZem HCl 60 MG TABLET PO SCH (07:52)
[2017-11-27 09:08] LABS: Hematocrit 38.6 % (37.5-50.1); Immature Reticulocyte % 7.7 % (11.0-38.0); Mean Corpuscular HGB Conc 31.1 g/dL (31.6-35.5); Mean Corpuscular Hemoglobin 27.4 pg (28.0-33.3); Mean Corpuscular Volume 88.1 fL (83.0-100.0); Mean Platelet Volume 10.4 fL (9.4-12.4); Platelet Count 284 K/mcL (140-400); Red Blood Count 4.38 M/mcL (4.19-5.50); Red Cell Distribution Width 16.5 % (11.5-14.5); Retculocyte # 0.05 M/mcL (0.05-0.10); Reticulocyte % 1.1 % (1.6-2.8)
[2017-11-27 09:11] LABS: Alanine Aminotransferase 450 Units/L (7-52); Albumin 3.7 g/dL (3.5-5.7); Alkaline Phosphatase 77 Units/L (34-104); Aspartate Amino Transferase 147 Units/L (13-39); BUN/Creatinine Ratio 16 (6-26); Bilirubin,Total 0.5 mg/dL (0.3-1.0); Blood Urea Nitrogen 19 mg/dL (6-20); Calcium 10.3 mg/dL (8.6-10.3); Carbon Dioxide 18 mEq/L (23-29); Chloride 107 mEq/L (98-107); Globulin 3.7 g/dL (2.4-3.5); Glucose 90 mg/dL (70-105); Osmolality,Calculated 278 (280-300); Potassium 4.3 mEq/L (3.5-5.1); Sodium 133 mEq/L (136-145); Total Protein 7.4 g/dL (6.4-8.9); eGFR For African Americans > 60 (> 60); eGFR For Non-African Americans > 60 (> 60)
--- NOTE | 2017-11-27 09:53 | Discharge Summary ---
- NOTES TO OUTPATIENT PROVIDER Notes to Outpatient Provider: check LFT on tuesday, call GI service if still elevated or develops abdominal pain. Please make sure patient keeps up with his oral intake Orders not resulted at time of discharge: Pending orders 11/27/17 08:18 Comprehensive Metabolic Panel AM 0400 Iron Profile Routine Lactate Dehydrogenase Routine 11/28/17 04:00 CBC no Diff [Complete Blood Count w/o Diff] [HEME] AM 0400 Comprehensive Metabolic Panel AM 0400 Date of Encounter: 11/27/17 Time of Encounter: 09:52 - Discharge Diagnosis (1) Elevated liver enzymes Priority: Primary Status: Acute Comments: Etiology unclear, but could be secondary to IV fluconazole. Hepatitis pattern based on lab values. Abdominal exam benign. Liver enzymes were worse despite discontinuing fluconazole. Liver UTS revealed sludge and stones in the gallbladder but normal bile duct Hepatitis profile negative. GI consulted. Recommended HIDA scan, but patient refused/ unable to lie on back for test. If secondary to fluconazole, could take several weeks for levels to get back to normal. Patient's AST is trending down now 147. ALT is trending down to 450. Bili is within normal limits. Ultrasound of the gallbladder showed sludge and stones the patient is asymptomatic. GI was consulted and will follow as an outpatient as needed. Patient was unable to tolerate a HIDA scan. (2) Intravenous line infection Priority: Primary Status: Acute Comments: Infectious disease service was following, his indwelling line was removed WBCs have normalized The patient is afebrile Causative organism: C. parapsilosis. Blood cultures drawn 11/16/17 1/2 sets from the patient's midline are positive for C. parapsilosis per PCR. No peripheral stick blood cultures were drawn at the same time. Likely secondary to seeding from the patient's previous candidemia. Midline has been removed. Peripheral blood cultures drawn x 2 sets 11/21/17 are NGTD. No blood cultures were drawn from the midline prior to its removal. Qualifiers: Encounter type: initial encounter Qualified Code(s): T82.7XXA - Infection and inflammatory reaction due to other cardiac and vascular devices, implants and grafts, initial encounter (3) Candidemia Priority: Primary Status: Acute Comments: Causative organism: C. glabrata. Source likely the patient's a-port, which was removed. The patient did have what appeared to be cellulitis overlying the A-port site. No blood cultures were obtained from the a-port prior to its removal and the catheter tip was not sent for culture. Peripheral blood cultures drawn 11/10/17 were positive 2/2 sets for C. glabrata. Blood cultures drawn from the patient's CVC 11/11/17 1/1 set were negative. Repeat blood cultures drawn 11/14/17 were negative x 1 set. Additional blood cultures drawn from the patient's midline or CVC prior to discharge on 11/16/17 are positive 1/2 sets for C. parapsilosis. No peripheral blood cultures were drawn concurrently. Peripheral blood cultures drawn 11/21/17 are NGTD x 2 sets. The patient has a prior history of Candidemia with the same causative organism in August after his abdominal surgery. A-port removed 11/11/17. Continue Micafungin 100mg IV daily. Duration of treatment depends on the clinical picture, but likely 14 days. Treat through 11/29/17, then discontinue. Monitor renal and liver function and dose-adjust antibiotics. Baseline LFTs were normal prior to discharge, but are now elevated. See additional recommendations above. Not sure if this recurrence is seeding of the midline/CVC from his Candidemia in October or related to his previous episode in August. Although it is unlikely, the patient is at risk for seeding of his VA shunt. If he has another recurrence, he will likely need to be referred to [facility]neurology for evaluation of seeding of his VA shunt. Opthalmology evaluation noted and appreciated. No endopthalmitis noted per Dr. Montesinos. (4) Hydrocephalus Priority: Secondary Status: Chronic (5) CKD (chronic kidney disease) Priority: Primary Status: Chronic Comments: Elevated creatinine responded to short course of IV fluids Patient needs to keep up his oral intake on return to the skilled facility Qualifiers: Chronic kidney disease stage: unspecified stage Qualified Code(s): N18.9 - Chronic kidney disease, unspecified (6) Ileostomy present Priority: Primary Status: Chronic Comments: High output at times Hospital course: Mr. Benitez is a 32 year old male who resides at [facility]. He will return there today as he is on a bed hold. Please refer to the details and the assessment and plan for further information on this hospitalization. Discharge discussed with: patient, nurse, social work - Time Spent with Patient Total time spent providing and/or coordinating discharge services: Less than 30 minutes - Discharge Medications Prescriptions: Micafungin [Mycamine] 100 mg IV DAILY 2 Days #2 vial Oxycodone HCl 5 mg PO Q6H PRN 5 Days #20 tablet PRN Reason: Moderate Pain Home Medications: Bismuth Subsalicylate [PEPTO-BISMOL (262mg/15mL) Susp] 524 mg PO Q8H PRN [History] Brivaracetam [Briviact] 100 mg PO BID 10/06/17 [History] Docusate [Colace] 100 mg PO BID PRN 10/06/17 [History] GuaiFENesin/Dextromethorphan [Tussin Dm Syrup] 10 ml PO Q6H PRN 10/06/17 [ History] Loperamide HCl [Anti-Diarrheal] 2 mg PO PER PKG DI PRN MDD 8 mg 10/06/17 [ History] Quetiapine Fumarate [Seroquel] 50 mg PO BID 10/06/17 [History] Quetiapine Fumarate [Seroquel] 100 mg PO QAM 10/06/17 [History] Ranitidine HCl [Zantac] 150 mg PO BID 10/06/17 [History] lamoTRIgine [Lamictal] 100 mg PO BID 10/06/17 [History] ALPRAZolam [Xanax 0.25 MG Tablet] 0.25 mg PO TID PRN 10/17/17 [History] Omeprazole [PriLOSEC] 20 mg PO DAILY 10/17/17 [History] Ferrous Sulfate 325 mg PO BIDWM tablet 11/16/17 [Rx] dilTIAZem HCl [Cardizem] 60 mg PO QID tablet 11/16/17 [Rx] Micafungin [Mycamine] 100 mg IV DAILY 2 Days #2 vial 11/27/17 [Rx] Oxycodone HCl 5 mg PO Q6H PRN 5 Days #20 tablet 11/27/17 [Rx] Allergies/Adverse Reactions: 3 Allergy/AdvReac Type Severity Reaction Status Date / Time No Known Allergies Allergy Verified 10/06/17 13:55 Date of admission: 11/21/17 17:26 Primary care physician: BECKIE Gifford Consults: 11/21/17 18:17 Consult to Child Development Specialist [CONS] Routine Reason for SW Consult: Pt is from [facility] 11/22/17 17:04 Consult to Physician [CONS] Routine Consulting Provider: Gerry Montesinos Reason for Consult: Candidemia. Evaluate for endophthalmitis. Time Notified: 17:05 Call Completed: Yes 11/23/17 13:50 Consult to Gastroenterology [CONS] Routine Consulting Provider: Gastroenterology Carole Reason for Consult: elevated LFTs and gallstones/sludge Time Notified: 13:50 Call Completed: Yes Discharging clinician: Montse Scott Anticipated date of discharge: 11/27/17 - Constitutional Vitals: Temp Pulse Resp BP Pulse Ox 98.4 F 106 14 89/55 95 11/27/17 06:51 11/27/17 06:51 11/27/17 06:51 11/27/17 06:51 11/27/17 07:55 General appearance: Present: A&O X 3, pleasant - Head Head exam: Present: atraumatic, normocephalic - Eye Eye exam: Present: PERRL, conjuntiva pink, sclera anicteric Pupils: Present: PERRL - Neck Neck exam general surgery: Present: supple, trachea midline. Absent: lymphadenopathy - Respiratory Respiratory exam: Present: CTAB. Absent: accessory muscle use, rales, rhonchi, wheezes - Cardiovascular Cardiovascular exam: Present: RRR, +S1, +S2. Absent: diastolic murmur, gallop, rubs, systolic murmur - GI/Abdominal GI/Abdominal exam: Present: normal bowel sounds, soft, no peritoneal signs. Absent: distended, tenderness Additional comments: Colostomy and colostomy are both functioning. High output at times from the ileostomy. Light brown liquid stool from the colostomy. - Extremities Exam Extremities exam: Present: warm, radial pulses palpable and symmetrical. Absent : calf tenderness, cyanotic, pedal edema - Neurological Exam Neurological exam: Present: oriented X3, no focal deficits. Absent: pronater drift, facial droop, speech deficit - Skin Skin exam: Present: dry, normal color, warm Additional comments: Port site with dry dressing intact - Patient Status Disposition: Transfer SNF Condition: Good Functional capacity at discharge: wheelchair bound Overall status at discharge: patient is progressing back to baseline - Discharge Instructions Follow Up With: Elicia Mcintosh CNP [Primary Care Provider] - - Diet and Activity Activity: as per physical therapy, resume usual activities as tolerated
[2017-11-27] MEDS: *HR* OxyCODONE Immed Rel 5 MG TABLET PO PRN (10:04)
--- NOTE | 2017-11-27 10:16 | Physician Discharge Referral ---
ExtendedCare Referral Info Transfer To: [facility] Provider in Charge after Transfer: PCP Institutional Level of Care: Skilled - Diagnosis (1) Elevated liver enzymes Priority: Primary Status: Acute (2) Intravenous line infection Priority: Primary Status: Acute (3) Candidemia Priority: Primary Status: Acute (4) Hydrocephalus Priority: Secondary Status: Chronic (5) CKD (chronic kidney disease) Priority: Primary Status: Chronic (6) Ileostomy present Priority: Secondary Status: Chronic Prognosis: Good Aware of Diagnosis: Patient Aware of Prognosis: Patient - Transfer Medications Prescriptions: Micafungin [Mycamine] 100 mg IV DAILY 2 Days #2 vial Oxycodone HCl 5 mg PO Q6H PRN 5 Days #20 tablet PRN Reason: Moderate Pain Home Medications: Bismuth Subsalicylate [PEPTO-BISMOL (262mg/15mL) Susp] 524 mg PO Q8H PRN [History] Brivaracetam [Briviact] 100 mg PO BID 10/06/17 [History] Docusate [Colace] 100 mg PO BID PRN 10/06/17 [History] GuaiFENesin/Dextromethorphan [Tussin Dm Syrup] 10 ml PO Q6H PRN 10/06/17 [ History] Loperamide HCl [Anti-Diarrheal] 2 mg PO PER PKG DI PRN MDD 8 mg 10/06/17 [ History] Quetiapine Fumarate [Seroquel] 50 mg PO BID 10/06/17 [History] Quetiapine Fumarate [Seroquel] 100 mg PO QAM 10/06/17 [History] Ranitidine HCl [Zantac] 150 mg PO BID 10/06/17 [History] lamoTRIgine [Lamictal] 100 mg PO BID 10/06/17 [History] ALPRAZolam [Xanax 0.25 MG Tablet] 0.25 mg PO TID PRN 10/17/17 [History] Omeprazole [PriLOSEC] 20 mg PO DAILY 10/17/17 [History] Ferrous Sulfate 325 mg PO BIDWM tablet 11/16/17 [Rx] dilTIAZem HCl [Cardizem] 60 mg PO QID tablet 11/16/17 [Rx] Micafungin [Mycamine] 100 mg IV DAILY 2 Days #2 vial 11/27/17 [Rx] Oxycodone HCl 5 mg PO Q6H PRN 5 Days #20 tablet 11/27/17 [Rx] Allergies/Adverse Reactions: 3 Allergy/AdvReac Type Severity Reaction Status Date / Time No Known Allergies Allergy Verified 10/06/17 13:55 - Respiratory Orders Smoking Cessation: Smoking cessation has been advised. For more information, call the [place] Tobacco Quit Line at 6-372-XQWI-NOW. - Lab Orders Lab Orders: Other (include drug levels w/frequency) (lft on tuesday11/29/17 with results to PCP/GI) - Ancillary Orders May use pressure relief devices daily prn - Advance Directives Living Will: No Power of Machinist Bench: No Code Status: Full Code - Mobility Orders Other - Treatments List/Other: dry dressing to right subclavian site until healed, cleanse with saline - Diet Orders Regular (encouage adequate fluid intake) CERTIFICATION: I certify that the transfer of the above named patient to an Extended Care Facility is necessary for the continuing treatment of the diagnosis listed. The above information is true and accurate reflection of patient's current condition. Confidential - Redisclosure prohibited without a patient's written consent.
[2017-11-27 10:47] LABS: % Iron Saturation 8 % (20-55); Iron 28 mcg/dL (65-175); Lactate Dehydrogenase 215 Units/L (140-271); Transferrin 253 mg/dL (203-362)
--- NOTE | 2017-11-27 10:56 | Gastroenterology Progress Note ---
Date of Encounter: 11/27/17 Time of Encounter: 10:00 - Assessment and plan (1) Elevated liver enzymes Current Visit: Yes Status: Acute Assessment and plan: Likely secondary to medication (Fluconazole) which has been changed to Micafungin. LFTs found to be elevated on admission AST 95 and ALT 230. Today AST 198 and ALT 467. Hepatitis profile negative. Continue to monitor LFTs daily. (2) Anemia Current Visit: Yes Status: Acute Qualifiers: Anemia type: iron deficiency Iron deficiency anemia type: inadequate dietary iron intake Qualified Code(s): D50.8 - Other iron deficiency anemias - Time Spent With Patient Total time spent is greater than 50% in coordination of care (as documented) at patient's floor/unit and/or counseling patient: 25 - 35 minutes - Subjective Interval history: Patient is sitting up in bed very T breakfast. He states his abdomen hurts and then points to the old port site in his right chest wall. He denies any abdominal pain when asked specifically to 0.2 his pain. He denies nausea or further emesis. He has no chest pain or shortness of breath, denies fever or chills. - Constitutional Vitals: Temp Pulse Resp BP Pulse Ox 98.4 F 106 14 89/55 95 11/27/17 06:51 11/27/17 06:51 11/27/17 06:51 11/27/17 06:51 11/27/17 07:55 General appearance: Present: cooperative, A&O X 3, no acute distress, answers questions appropriately - Head Head exam: Present: atraumatic, normal inspection, normocephalic - Eye Eye exam: Present: EOMI, PERRL, sclera anicteric - GI/Abdominal GI/Abdominal exam: Present: soft Results - Labs CBC & Chem 7: 11/27/17 08:18 11/27/17 08:18 Labs: Last Result Calcium 10.3 mg/dL (8.6-10.3) 11/27/17 08:18 Iron 28 mcg/dL (65-175) L 11/27/17 08:18 % Saturation 8 % (20-55) L 11/27/17 08:18 Transferrin 253 mg/dL (203-362) 11/27/17 08:18 Troponin I < 0.03 ng/mL (< 0.04) 11/21/17 20:26 Entire Visit Hgb 12.0 g/dL (12.9-16.9) L D 11/27/17 08:18 Hct 38.6 % (37.5-50.1) 11/27/17 08:18 Total Bilirubin 0.5 mg/dL (0.3-1.0) 11/27/17 08:18 AST 147 Units/L (13-39) H 11/27/17 08:18 ALT 450 Units/L (7-52) H 11/27/17 08:18 Consult Discharge Plan - Plan Instructions: Chest Pain (DC), Urinary Tract Infection in Men (DC), Sepsis (DC) , Anemia (GEN) Referrals: Elicia Mcintosh CNP [Primary Care Provider] - Prescriptions: Micafungin [Mycamine] 100 mg IV DAILY 2 Days #2 vial Oxycodone HCl 5 mg PO Q6H PRN 5 Days #20 tablet PRN Reason: Moderate Pain Impression The patient consulted for elevated liver enzymes as well [facility] but continued to have his liver enzymes followed every second day and he will need to follow up with us at some point in the next 5-2 weeks to see the trend and to make any other further recommendations. Thank you very much for this for me to participate in the care of this patient. Have called and discussed this this with you.
== END 2017-11-27 11:35 | DRG 315 ==
LOC: EMEROO 07:02 → 3BNU 07:02 → SUATTDRO 17:26 → 3BNU 17:37
PROVIDERS: ADMIT Internal Medicine; ATTEND Internal Medicine

== ENCOUNTER 2020-05-30 16:13 | Observation (INO) ==
[2020-05-30] MEDS ORDERED: Ondansetron ODT 4 MG TAB.RAPDIS SL PRN (21:09)
[2020-05-30] MEDS ORDERED: Naloxone 0.4 MG/ML INJ IVP PRN (21:09)
[2020-05-30] MEDS ORDERED: *HR* Heparin 5,000 UNIT/ML VIAL IVP PRN ×2 (21:13)
[2020-05-30] MEDS ORDERED: Heparin 25,000UNIT/250ML 1/2NS 25,000 UNIT/250 ML IV.SOLN IVC SCH (21:15)
[2020-05-31] MEDS ORDERED: Perflutren Lipid Microsphere 1.3 ML in 0.9 % Sodium Chloride 8.7 ML IVP PRN (01:20)
[2020-05-31 01:46] LABS: Basophils % 0.4 %; Eosinophils # 0.1 K/mcL (0.0-0.6); Eosinophils % 0.9 %; Hematocrit 48.5 % (37.5-50.1); Hemoglobin 17.1 g/dL (12.9-16.9); Immature Granulocytes % 0.2 % (0-4); Lymphocytes # 2.5 K/mcL (0.6-4.6); Lymphocytes % 26.9 %; Mean Corpuscular HGB Conc 35.3 g/dL (31.6-35.5); Mean Corpuscular Hemoglobin 32.3 pg (28.0-33.3); Mean Corpuscular Volume 91.5 fL (83.0-100.0); Mean Platelet Volume 10.9 fL (9.4-12.4); Monocytes # 0.8 K/mcL (0.0-1.3); Monocytes % 8.2 %; Neutrophils # 5.8 K/mcL (1.6-8.9); Platelet Count 236 K/mcL (140-400); Red Cell Distribution Width 12.2 % (11.5-14.5); Segmented Neutrophils % 63.4 %; White Blood Count 9.1 K/mcL (4.3-11.1)
[2020-05-31 01:52] LABS: Heparin anti-factor XA UFH 0.29 IU/mL (0.30-0.70); INR 1.1; Prothrombin Time 12.1 Seconds (9.4-12.1)
[2020-05-31 01:55] LABS: Activated Partial Thrombo Time 40.1 Seconds (26.0-36.0)
[2020-05-31 02:05] LABS: Calcium 9.8 mg/dL (8.6-10.3); Carbon Dioxide 21 mEq/L (23-29); Chloride 102 mEq/L (98-107); Glucose 93 mg/dL (70-105); Potassium 3.5 mEq/L (3.5-5.1); Sodium 134 mEq/L (136-145); eGFR For African Americans > 60 (> 60); eGFR For Non-African Americans > 60 (> 60)
[2020-05-31 02:06] LABS: Troponin I < 0.03 ng/mL (< 0.04)
[2020-05-31 02:08] LABS: BUN/Creatinine Ratio 15 (6-26); Blood Urea Nitrogen 19 mg/dL (6-20); Osmolality,Calculated 280 (280-300)
[2020-05-31] MEDS ORDERED: QUEtiapine Fumarate 100 MG TABLET PO SCH (02:30)
[2020-05-31] MEDS: lamoTRIgine 25 MG TABLET PO SCH ×3 (03:44→20:14)
[2020-05-31] MEDS ORDERED: Regadenoson 0.4 MG/5 ML SYRINGE IVP ONE (08:42)
[2020-05-31] MEDS: *HR* Heparin 5,000 UNIT/ML VIAL SQ SCH (18:32)
[2020-05-31] MEDS: QUEtiapine Fumarate 25 MG TABLET PO SCH ×2 (18:32→20:13)
[2020-05-31] MEDS: clonazePAM 0.5 MG TABLET PO SCH (20:14)
[2020-05-31] MEDS ORDERED: lamoTRIgine 100 MG TABLET PO SCH (21:00)
[2020-06-01] MEDS: *HR* Heparin 5,000 UNIT/ML VIAL SQ SCH (05:10)
[2020-06-01 07:37] VITALS: BP 117/76
[2020-06-01] MEDS: lamoTRIgine 25 MG TABLET PO SCH (08:19)
[2020-06-01] MEDS: clonazePAM 0.5 MG TABLET PO SCH (08:19)
[2020-06-01] MEDS ORDERED: QUEtiapine Fumarate 100 MG TABLET PO SCH (09:00)
[2020-06-01] MEDS ORDERED: Famotidine 20 MG TABLET PO SCH (09:00)
== END 2020-06-01 12:13 | disposition home or self-care (01) ==
LOC: 3BNU → SUATTDRO 19:47
PROVIDERS: ADMIT Student in an Organized Health Care Education/Training Program; ATTEND Nurse Practitioner Adult Health